=== PATIENT | female | born 1965 | race Caucasian/White ===

== ENCOUNTER → 2022-10-23 14:10 | Outpatient (BNVA) | payer OTHER, MEDICARE, SELFPAY | PROVIDERS: PCP Internal Medicine Hematology & Oncology; Visit Provider Physician Assistant | DX: Z13.89 Encounter for screening for other disorder (principal) ==

== ENCOUNTER → 2022-11-11 12:48 | Outpatient (BNVA) | payer OTHER, MEDICARE, SELFPAY | PROVIDERS: PCP Internal Medicine Hematology & Oncology; Visit Provider Physician Assistant | DX: M54.12 Radiculopathy, cervical region (principal) | CPT/HCPCS: 99024 ==

== ENCOUNTER → 2022-12-26 08:55 | Outpatient (BNVA) | payer OTHER, MEDICARE, SELFPAY | PROVIDERS: PCP Internal Medicine Hematology & Oncology; Visit Provider Physician Assistant ==

== ENCOUNTER 2023-01-27 12:08 | Emergency (ER) | payer OTHER, MEDICARE, SELFPAY ==
--- NOTE | 2023-01-27 12:12 | ED_ITS ---
HPI - General Adult General Chief complaint: General Medical Stated complaint: Diff Walking ? Clots Time Seen by Provider: 01/27/23 14:26 Source: patient Mode of arrival: ambulatory Limitations: no limitations History of Present Illness HPI narrative: The 49-year-old female with chronic pain throughout her body intermittent weakness cervical without without with a with neck surgery back in August an MRI at that time as well as well as a fusion of her lower spine scheduled later this month. She states she woke up this morning stating she felt like her inflammation starting control she was recently diagnosed fibromyalgia. She states she has to take NSAIDs was taking high doses and start affect her kidneys . Related Data Previous Rx's Medication Instructions Recorded oxycodone 5 mg tablet 5 mg PO Q4-6H PRN pain #30 tabs 10/23/22 sulfamethoxazole 800 1 tab PO BID 7 days #14 tabs 10/23/22 mg-trimethoprim 160 mg tablet (Bactrim DS) tizanidine 4 mg tablet 4 mg PO Q8H PRN muscle spasticity 10/23/22 #30 tabs hydrocodone 5 mg-acetaminophen 300 1 tab PO Q6H PRN pain #30 tabs 10/30/22 mg tablet tizanidine 4 mg tablet 4 mg PO Q8H PRN muscle spasticity 10/31/22 #30 tabs pregabalin 75 mg capsule (Lyrica) 75 mg PO BID #60 caps 11/11/22 indomethacin 25 mg capsule 25 mg PO BID #30 caps 01/27/23 Allergies Allergy/AdvReac Type Severity Reaction Status Date / Time cortisone Allergy Swelling Verified 01/27/23 12:15 ondansetron [From Zofran] Allergy Hypotension Verified 01/27/23 12:15 prednisone Allergy Anaphylaxis Verified 01/27/23 12:15 NSAIDS (Non-Steroidal AdvReac Unknown Verified 01/27/23 14:12 Anti-Inflamma Review of Systems Review of Systems: Review of systems: General: Patient denies any fever chills recent illness or falls Musculoskeletal: Denies back pain or body aches or other injuries HEENT: denies headache, runny nose, ear pain Respiratory: denies shortness of breath, cough Cardiovascular: no chest pain or palpitations : denies dysuria, frequency Abdomen: no nausea vomiting denies abdominal pain Extremities: no swelling, no pain Skin: no diaphoresis Yes all other systems are reviewed and are negative [facility] Social History Social History Alcohol intake: never Smoked in Last 30 Days: No Use of substances other than those prescribed or required for medical reasons: No Advance Directives: No Physical Exam ED Vital Signs: Vital Signs - 24 hr 01/27/23 12:15 01/27/23 14:47 Temperature 97 F 98.4 F Pulse Rate 93 92 Respiratory Rate 16 16 Blood Pressure 135/63 153/74 H Pulse Oximetry 97 98 Oxygen Delivery Method Room Air Room Air BMI result Body Mass Index 30.0 Neurological exam: CN II- XII tested. Patient is alert and oriented to person place and time. Patient has no dysphagia or dysarthia, denies good vision in all four vision lackey no nystagmus on exam, good strength to upper and lower extremities with normal reflexes to brachioradialis, wrist, patella and achilles. Negative romberg, good finger to nose and heel to ordoñez. General: Well-appearing well-nourished in no signs of distress HEENT: Normocephalic atraumatic Neck: No signs of JVD, no masses no tenderness or lymphadenopathy Cardiovascular: Regular rate and rhythm Respiratory: Clear to auscultation bilaterally Abdomen: Soft nontender no masses Extremities: Normal pedal pulses no signs of edema Skin: Dry warm no rashes Back: No tenderness full ROM Course Course Course Narrative: This is an RME: Additional HPI, ROS, PE not included below will be deferred to primary provider. Patient is a 57 yo F with PMH of athritis and cervical radiculopathy presenting with difficulty walking. Patient ambulating into triage. Patient reports that since September she has had whole body stiffness and it is worsening in her legs. Patient reports being swollen and in pain from head to toe. Patient reports pain with bending her knees. Patient denies fever, chills, chest pain, SOB, nausea, vomiting, numbness, tingling, headache, vision changes. Plan: labs Medical Decision Making Medical Decision Making MDM Narrative: Patient has no back pain red flags no numbness she does not lose control of her bowel or bladder I do not think there is anything that is life threatening she is not going to be on prednisone or NSAIDs I did talk to her that I think it is reasonable to try some NSAIDs for short period time they were very happy with this plan. She is already on Percocet I would not give her a 2nd opiate for this acute on chronic pain. Differential Diagnosis Differential Diagnoses: The differential diagnosis associated with the presentation includes Acute on chronic arthritis labs sent triage that show inflammation that is nonspecific she has no back pain red flags Admission/Observation Consideration of admission/observation: Escalation of care including admission/observation considered Lab Data MDM Lab Attestation statement: I reviewed the patient's lab results. Nonspecific inflammation in ESR and CRP kidney function now normal. 01/27/23 12:30 01/27/23 12:30 Labs: Lab Results 01/27/23 01/27/23 01/27/23 Range/Units 12:30 12:30 12:30 WBC 8.6 (4.8-10.8) X10*3/uL RBC 4.54 (4.20-5.50) X10*6/uL Hgb 10.9 L (12.0-16.0) g/dl Hct 35.5 L (37.0-47.0) % MCV 78.2 L (80.0-98.0) fL MCH 24.0 L (27.0-33.0) pg MCHC 30.7 L (31.0-35.0) g/dl RDW 15.6 (11.0-16.0) % Plt Count 433 H (160-400) X10*3/uL MPV 10.0 (9.4-12.3) fL Immature Gran % (Auto) 0.7 H (0.0-0.4) % Neut % (Auto) 72.7 (45-73) % Lymph % (Auto) 18.7 L (20-40) % Fountain % (Auto) 4.9 (2-11) % Eos % (Auto) 2.3 (0-4) % Baso % (Auto) 0.7 (0-2) % Lymph # (Auto) 1.6 (1.2-4.9) X10*3/uL Fountain # (Auto) 0.4 (0.1-1.2) X10*3/uL Eos # (Auto) 0.2 (0.0-0.4) X10*3/uL Baso # (Auto) 0.1 (0.0-0.2) X10*3/uL Abs Immat Gran (auto) 0.06 H (0.00-0.03) X10*3/uL Absolute Neuts (auto) 6.2 (2.0-8.3) x10*3/uL Absolute Nucleated RBC 0.000 (0.0-0.012) X10*3/uL Nucleated RBC % (auto) 0.0 (0.0-0.2) /100WBC ESR 60 H (0-20) MM/HR Sodium 135 (135-145) mmol/L Potassium 4.0 (3.3-5.1) mmol/L Chloride 100 (96-108) mmol/L Carbon Dioxide 21 L (22-29) mmol/L Anion Gap 18 (12-20) BUN 13 (9-16) mg/dL Creatinine 0.80 (0.5-1.4) mg/dL Estim Creat Clear Calc 72.3 Estimated GFR > 60 Random Glucose 107 (60-115) mg/dL Calcium 10.3 H (8.4-10.2) mg/dL Magnesium 1.6 (1.6-2.6) mg/dL Total Bilirubin 0.2 (0.0-1.0) mg/dL AST 11 (5-31) U/L ALT < 5 (0-31) U/L Alkaline Phosphatase 78 (39-117) U/L C-Reactive Protein 7.92 H (< or = 0.50) mg/dL Total Protein 8.7 H (6.5-8.0) g/dL Albumin 4.3 (3.5-5.0) g/dL Discharge Plan Discharge Clinical Impression: Arthritis Patient Disposition: Home, Self-Care Instructions: Osteoarthritis (ED) Additional Instructions: You were seen today for joint pain. You had labs done that showed inflammation and improved kidney function. Please call to follow up. If you have any other concerns please return to the ED. Prescriptions: New indomethacin 25 mg capsule 25 mg PO BID Qty: 30 0RF Rx Instructions: administer with food or milk No Action hydrocodone-acetaminophen 5-300 mg tablet 1 tab PO Q6H PRN (Reason: pain) Qty: 30 0RF Rx Instructions: Partial Fill upon patient request. tizanidine 4 mg tablet 4 mg PO Q8H PRN (Reason: muscle spasticity) Qty: 30 0RF pregabalin [Lyrica] 75 mg capsule 75 mg PO BID Qty: 60 2RF sulfamethoxazole-trimethoprim [Bactrim DS] 800-160 mg tablet 1 tab PO BID 7 Days Qty: 14 0RF oxycodone 5 mg tablet 5 mg PO Q4-6H PRN (Reason: pain) Qty: 30 0RF Rx Instructions: Partial Fill upon patient request. tizanidine 4 mg tablet 4 mg PO Q8H PRN (Reason: muscle spasticity) Qty: 30 0RF
[2023-01-27 12:15] VITALS: BP 135/63; PULSE 93; RESP 16; TEMP 36.1; O2SAT 97
[2023-01-27 12:37] LABS: MANUAL DIFF FLAG NO
[2023-01-27 12:38] LABS: Basophils Absolute Auto 0.1 X10*3/uL (0.0-0.2); Basophils Percent Auto 0.7 % (0-2); Eosinophils Absolute Auto 0.2 X10*3/uL (0.0-0.4); Eosinophils Percent Auto 2.3 % (0-4); Hematocrit 35.5 % (37.0-47.0); Hemoglobin 10.9 g/dl (12.0-16.0); Imm Gran Abs Auto 0.06 X10*3/uL (0.00-0.03); Imm Gran Pct Auto 0.7 % (0.0-0.4); Lymphocytes Absolute Auto 1.6 X10*3/uL (1.2-4.9); Lymphocytes Percent Auto 18.7 % (20-40); Mean Corpuscular HGB Conc 30.7 g/dl (31.0-35.0); Mean Corpuscular Volume 78.2 fL (80.0-98.0); Monocytes Absolute Auto 0.4 X10*3/uL (0.1-1.2); Monocytes Percent Auto 4.9 % (2-11); Neutrophils Absolute Auto 6.2 x10*3/uL (2.0-8.3); Neutrophils Percent Auto 72.7 % (45-73); Platelet Count 433 X10*3/uL (160-400); Red Blood Count 4.54 X10*6/uL (4.20-5.50); Red Cell Distribution Width 15.6 % (11.0-16.0); White Blood Count 8.6 X10*3/uL (4.8-10.8)
[2023-01-27 12:53] LABS: Alanine Aminotransferase < 5 U/L (0-31); Albumin Level 4.3 g/dL (3.5-5.0); Alkaline Phosphatase 78 U/L (39-117); Anion Gap 18 (12-20); Aspartate Amino Transferase 11 U/L (5-31); Bilirubin Total 0.2 mg/dL (0.0-1.0); Blood Urea Nitrogen 13 mg/dL (9-16); C Reactive Protein 7.92 mg/dL (< or = 0.50); Calcium 10.3 mg/dL (8.4-10.2); Carbon Dioxide 21 mmol/L (22-29); Chloride 100 mmol/L (96-108); Creatinine Clr Calc Pharmacy 72.3; Estimated Glomerular Filt Rate > 60; Glucose Random 107 mg/dL (60-115); Magnesium 1.6 mg/dL (1.6-2.6); Sodium 135 mmol/L (135-145); Total Protein 8.7 g/dL (6.5-8.0)
[2023-01-27 13:46] LABS: Erythrocyte Sedimentation Rate 60 MM/HR (0-20)
[2023-01-27 14:47] VITALS: BP 153/74; PULSE 92; RESP 16; TEMP 36.9; O2SAT 98
--- NOTE | 2023-01-27 15:01 | PC.NURSE ---
pt axox4, respirations even and unlabored, VSS, PERRLA, weakness noted with bilateral extremities upon exam. skin wpd. pt c/o stiffening of bilateral lower extremities; felt worse today. +pedal pulses bilat. awainting eval.
[2023-01-27] MEDS: Ketorolac Tromethamine 30 MG/ML VIAL 15 MG IM (15:27)
== END 2023-01-27 15:33 | disposition home or self-care (01) ==
PROVIDERS: Physician Assistant; Emergency Provider Student in an Organized Health Care Education/Training Program; PCP Internal Medicine
DX: M15.9 Polyosteoarthritis, unspecified (principal); R53.1 Weakness; E11.9 Type 2 diabetes mellitus without complications; I10 Essential (primary) hypertension; M79.7 Fibromyalgia; Z79.899 Other long term (current) drug therapy; Z87.891 Personal history of nicotine dependence
CPT/HCPCS: 36415; 80053; 83735; 85025; 85652; 86140; 96372; 99284; J1885

== ENCOUNTER 2023-02-06 14:24 | Emergency (ER) | payer OTHER, MEDICARE, SELFPAY ==
[2023-02-06 14:51] VITALS: BP 170/75; PULSE 108; RESP 20; TEMP 36.4; O2SAT 94; BMI 31.8
--- NOTE | 2023-02-06 14:52 | ED_ITS ---
HPI - General Adult General Chief complaint: Extremity Problem Stated complaint: both legs swollen Time Seen by Provider: 02/06/23 18:27 Source: patient Mode of arrival: ambulatory Limitations: no limitations History of Present Illness HPI narrative: Patient comes to the emergency room complaining of bilateral lower extremity edema for 3 days. Patient denies chest pain or shortness of breath. Patient recently started taking indomethacin for chronic pain. Related Data Home Medications Medication Instructions Recorded Confirmed dicyclomine 10 mg capsule 10 mg PO TID 01/30/23 01/30/23 gemfibrozil 600 mg tablet 600 mg PO BID 01/30/23 01/30/23 hydrochlorothiazide 25 mg tablet 25 mg PO DAILY 01/30/23 01/30/23 levothyroxine 125 mcg tablet 125 mcg PO DAILY 01/30/23 01/30/23 (Levoxyl) metformin 500 mg tablet 1,000 mg PO BID 01/30/23 02/02/23 omeprazole 40 mg capsule,delayed 40 mg PO DAILY 01/30/23 01/30/23 release oxycodone-acetaminophen 5 mg-325 1 tab PO QID PRN Pain 01/30/23 01/30/23 mg tablet ramipril 5 mg capsule 5 mg PO TID 01/30/23 01/30/23 sertraline 100 mg tablet 100 mg PO BEDTIME 01/30/23 02/02/23 valacyclovir 1 gram tablet 1,000 mg PO TID 01/30/23 01/30/23 verapamil 300 mg capsule 24hr 300 mg PO BEDTIME 01/30/23 02/02/[address],ext[address]release lorazepam 1 mg tablet 1 mg PO BEDTIME 02/02/23 02/02/23 pregabalin 75 mg capsule 150 mg PO BEDTIME 02/02/23 02/02/23 pregabalin 75 mg capsule (Lyrica) 75 mg PO QAM 02/02/23 02/02/23 tizanidine 4 mg tablet 4 mg PO BID 02/02/23 02/02/23 Previous Rx's Medication Instructions Recorded indomethacin 25 mg capsule 25 mg PO BID #30 caps 01/27/23 furosemide 40 mg tablet (Lasix) 40 mg PO DAILY #3 tabs 02/06/23 Allergies Allergy/AdvReac Type Severity Reaction Status Date / Time prednisone Allergy Severe Anaphylaxis Verified 02/06/23 15:57 cortisone Allergy Intermediate Swelling Verified 02/06/23 15:57 ondansetron [From Zofran] Allergy Mild Hypotension Verified 02/06/23 15:57 NSAIDS (Non-Steroidal AdvReac Intermediate affected Verified 02/06/23 15:57 Anti-Inflamma renal function Review of Systems Review of Systems: Constitutional : No Weight loss, No Fever, No Chills, No Night Sweats, No Fatigue, No Malaise ENT/Mouth : No Hearing loss, No Ear Pain, No Nasal Congestion, No Sinus Pain, No Hoarseness, No sore throat, No Rhinorrhea, No Swallowing Difficulty Eyes: No Eye Pain, No Swelling, No Redness, No Foreign Body, No Discharge, No Vision Changes Cardiovascular : No Chest Pain, No SOB, No Dyspnea on Exertion, No Orthopnea, no palpitations, complaining of bilateral lower extremity edema Respiratory : No Cough, No Sputum, No Wheezing, No Smoke Exposure, No Dyspnea Gastrointestinal : No Nausea, No Vomiting, No Diarrhea, No Constipation, No abdominal Pain, No Hematochezia, No Melena Genitourinary : no irregular bleeding, No Dysuria, No Urinary Frequency, No Hematuria, No Urinary Incontinence, No Urgency, No Flank Pain, No Urinary Flow Changes, No Hesitancy Musculoskeletal : No joint pain, No Myalgias, No Joint Swelling Skin : No Skin Lesions, No rash Neuro : No Weakness, No Numbness, No Paresthesias, No Loss of Consciousness, No Dizziness, No Headache Psych : No Anxiety/Panic, No Depression, No SI/HI/AH/VH, No Social Issues, Heme/Lymph: No Bruising, No Bleeding,No Lymphadenopathy Endocrine : No Polyuria, No Polydipsia, No Temperature Intolerance [facility] Past Medical History Medical History Anxiety Arthritis Cervical radiculopathy Depression Diabetes Elevated cholesterol Fibromyalgia GERD (gastroesophageal reflux disease) HTN (hypertension) Hypothyroid Surgical History (Updated 01/30/23 @ 11:02 by Radha Riojas RN) History of back surgery History of bilateral carpal tunnel release Hx of abdominal hysterectomy Hx of knee surgery Hx of neck surgery Hx of neck surgery Hx of tonsillectomy Social History Social History Are you a primary customer care coordinator to a significant other at home: No Do you presently have visiting nurse or other home services: No Alcohol intake: never Patient Tobacco Use Status: Former Tobacco user Quit Date: 2018 Tobacco use type: Cigarette Advance Directives: No Advance Directives Information Provided: No Physical Exam ED Vital Signs: Vital Signs - 24 hr 02/06/23 14:51 02/06/23 15:54 Temperature 97.5 F 98.4 F Pulse Rate 108 H 97 Respiratory Rate 20 16 Blood Pressure 170/75 H 170/85 H Pulse Oximetry 94 94 Oxygen Delivery Method Room Air Room Air BMI result Body Mass Index 31.8 Const Other: Appearance: Alert. Oriented X3. No acute distress. Eyes: Pupils equal, round and reactive to light. ENT: Pharynx normal. Neck: Normal inspection. Neck supple. No lymph nodes noted. No crepitus CVS: Normal heart rate and rhythm. Pulses normal. Normal S1 and S2 Respiratory: No respiratory distress. Breath sounds normal. No Wheezing. No rales Abdomen: Soft and nontender. No rigidity. No distention. Skin: Skin warm and dry. Normal skin color. Normal skin turgor. Extremities: +1 pitting edema bilaterally no calf pain No Lacerations. No Rash Neuro: Oriented X 3. No motor deficit. No sensory deficit. Moving all extremities. No slurred speech. CN 2 through 12 grossly intact Psych: calm, cooperative, normal affect Course Course Course Narrative: RME performed by Mariola Montesinos PA-C. Patient is a 57 year old assigned female at presenting to the emergency department with bilateral lower leg swelling. Patient states that her kidneys do not tolerate NSAIDs well and the last time she was here she was prescribed an NSAID, now she is concerned about her swelling. Labs ordered. Patient placed back in the waiting room pending room availability and results. Medical Decision Making Medical Decision Making [facility] Narrative: -my interpretation of labs: White blood cell count within normal limits, chronic anemia, BNP 41. I discussed the physical exam with the patient, patient likely having venous insufficiency versus side effect from indomethacin. -patient will be given Lasix for 3 days, instructed to wrap her legs or use compression stockings and elevate her legs as long as possible -DVT not suspected. Patient has DVT wells criteria score is -2 Differential Diagnosis Differential Diagnoses: The differential diagnosis associated with the presentation includes (Lower extremity edema from CHF, indomethacin side effects, venous insufficiency) Lab Data [facility] Lab Attestation statement: I reviewed the patient's lab results. 02/06/23 16:06 02/06/23 16:06 Labs: Lab Results 02/06/23 02/06/23 02/06/23 Range/Units 16:06 16:06 16:06 WBC 7.4 (4.8-10.8) X10*3/uL RBC 3.98 L (4.20-5.50) X10*6/uL Hgb 9.4 L (12.0-16.0) g/dl Hct 31.5 L (37.0-47.0) % MCV 79.1 L (80.0-98.0) fL MCH 23.6 L (27.0-33.0) pg MCHC 29.8 L (31.0-35.0) g/dl RDW 15.9 (11.0-16.0) % Plt Count 399 (160-400) X10*3/uL MPV 9.7 (9.4-12.3) fL Immature Gran % (Auto) 1.2 H (0.0-0.4) % Neut % (Auto) 69.2 (45-73) % Lymph % (Auto) 21.1 (20-40) % Phillips % (Auto) 5.0 (2-11) % Eos % (Auto) 3.0 (0-4) % Baso % (Auto) 0.5 (0-2) % Lymph # (Auto) 1.6 (1.2-4.9) X10*3/uL Phillips # (Auto) 0.4 (0.1-1.2) X10*3/uL Eos # (Auto) 0.2 (0.0-0.4) X10*3/uL Baso # (Auto) 0.0 (0.0-0.2) X10*3/uL Abs Immat Gran (auto) 0.09 H (0.00-0.03) X10*3/uL Absolute Neuts (auto) 5.1 (2.0-8.3) x10*3/uL Absolute Nucleated RBC 0.000 (0.0-0.012) X10*3/uL Nucleated RBC % (auto) 0.0 (0.0-0.2) /100WBC Sodium 137 (135-145) mmol/L Potassium 4.8 (3.3-5.1) mmol/L Chloride 104 (96-108) mmol/L Carbon Dioxide 23 (22-29) mmol/L Anion Gap 15 (12-20) BUN 22 H (9-16) mg/dL Creatinine 1.01 (0.5-1.4) mg/dL Estim Creat Clear Calc 59.0 Estimated GFR 56 Random Glucose 193 H (60-115) mg/dL Calcium 9.8 (8.4-10.2) mg/dL Magnesium 1.9 (1.6-2.6) mg/dL Total Bilirubin 0.1 (0.0-1.0) mg/dL AST 12 (5-31) U/L ALT 8 (0-31) U/L Alkaline Phosphatase 71 (39-117) U/L B-Natriuretic Peptide 41 (<100) pg/mL Total Protein 8.1 H (6.5-8.0) g/dL Albumin 4.0 (3.5-5.0) g/dL Scores [place] DVT Alternative Dx as likely as or more likely than DVT: -2 Score: -2 2-tier Risk: unlikely risk (5%) 3-tier Risk: low risk (3%) Discharge Plan Discharge Clinical Impression: Bilateral lower extremity edema Patient Disposition: Home, Self-Care Instructions: Leg Edema (ED) Additional Instructions: Please follow-up with your primary care physician tomorrow. If you have any worsening or new symptoms, please return to the emergency room or call 911 Prescriptions: New furosemide [Lasix] 40 mg tablet 40 mg PO DAILY Qty: 3 0RF No Action metformin 500 mg tablet 1,000 mg PO BID valacyclovir 1 gram tablet 1,000 mg PO TID sertraline 100 mg tablet 100 mg PO BEDTIME omeprazole 40 mg capsule,delayed release(DR/EC) 40 mg PO DAILY gemfibrozil 600 mg tablet 600 mg PO BID levothyroxine [Levoxyl] 125 mcg tablet 125 mcg PO DAILY verapamil 300 mg capsule, [address] 300 mg PO BEDTIME hydrochlorothiazide 25 mg tablet 25 mg PO DAILY ramipril 5 mg capsule 5 mg PO TID oxycodone-acetaminophen 5-325 mg tablet 1 tab PO QID PRN (Reason: Pain) dicyclomine 10 mg capsule 10 mg PO TID pregabalin 75 mg Capsule 150 mg PO BEDTIME tizanidine 4 mg tablet 4 mg PO BID pregabalin [Lyrica] 75 mg capsule 75 mg PO QAM lorazepam 1 mg tablet 1 mg PO BEDTIME indomethacin 25 mg capsule 25 mg PO BID Qty: 30 0RF Rx Instructions: administer with food or milk
[2023-02-06 15:54] VITALS: BP 170/85; PULSE 97; RESP 16; TEMP 36.9; O2SAT 94
--- NOTE | 2023-02-06 15:55 | PC.NURSE ---
patient a&ox3, c/o 03/29 generalized pain but states her legs hurt more than the body pain, pt noted to have 2+edema to BLE, pt awaiting tech to draw labs, and a provider to evaluate, call kaba within reach, will continue to monitor.
[2023-02-06 16:15] LABS: MANUAL DIFF FLAG NO
[2023-02-06 16:17] LABS: Basophils Percent Auto 0.5 % (0-2); Eosinophils Absolute Auto 0.2 X10*3/uL (0.0-0.4); Hematocrit 31.5 % (37.0-47.0); Hemoglobin 9.4 g/dl (12.0-16.0); Imm Gran Abs Auto 0.09 X10*3/uL (0.00-0.03); Imm Gran Pct Auto 1.2 % (0.0-0.4); Lymphocytes Absolute Auto 1.6 X10*3/uL (1.2-4.9); Lymphocytes Percent Auto 21.1 % (20-40); Mean Corpuscular HGB Conc 29.8 g/dl (31.0-35.0); Mean Corpuscular Hemoglobin 23.6 pg (27.0-33.0); Mean Corpuscular Volume 79.1 fL (80.0-98.0); Mean Platelet Volume 9.7 fL (9.4-12.3); Monocytes Absolute Auto 0.4 X10*3/uL (0.1-1.2); Neutrophils Absolute Auto 5.1 x10*3/uL (2.0-8.3); Neutrophils Percent Auto 69.2 % (45-73); Platelet Count 399 X10*3/uL (160-400); Red Blood Count 3.98 X10*6/uL (4.20-5.50); Red Cell Distribution Width 15.9 % (11.0-16.0); White Blood Count 7.4 X10*3/uL (4.8-10.8)
[2023-02-06 16:37] LABS: Alanine Aminotransferase 8 U/L (0-31); Alkaline Phosphatase 71 U/L (39-117); Anion Gap 15 (12-20); Aspartate Amino Transferase 12 U/L (5-31); Bilirubin Total 0.1 mg/dL (0.0-1.0); Blood Urea Nitrogen 22 mg/dL (9-16); Calcium 9.8 mg/dL (8.4-10.2); Carbon Dioxide 23 mmol/L (22-29); Chloride 104 mmol/L (96-108); Estimated Glomerular Filt Rate 56; Glucose Random 193 mg/dL (60-115); Magnesium 1.9 mg/dL (1.6-2.6); Potassium 4.8 mmol/L (3.3-5.1); Sodium 137 mmol/L (135-145); Total Protein 8.1 g/dL (6.5-8.0)
[2023-02-06 16:41] LABS: B Type Natriuretic Peptide 41 pg/mL (<100)
[2023-02-06 19:17] VITALS: BP 166/86; PULSE 98; RESP 18; TEMP 36.7; O2SAT 96
--- NOTE | 2023-02-06 19:18 | PC.NURSE ---
pts bilateral legs wrapped with janine wraps per request of provider, pt also educated about obtaining compression socks that are available OTC, pt to obtain compression socks vs using janine wraps. pt also educated on lasix and will be discharged.
== END 2023-02-06 19:19 | disposition home or self-care (01) ==
PROVIDERS: Physician Assistant Medical; Emergency Provider Emergency Medicine
DX: R60.0 Localized edema (principal); E11.9 Type 2 diabetes mellitus without complications; I10 Essential (primary) hypertension; E78.5 Hyperlipidemia, unspecified; G89.4 Chronic pain syndrome; Z79.899 Other long term (current) drug therapy; Z79.84 Long term (current) use of oral hypoglycemic drugs
CPT/HCPCS: 36415; 80053; 83735; 83880; 85025; 99283

== ENCOUNTER 2023-02-16 05:53 | Inpatient (IN) | payer OTHER, MEDICARE, SELFPAY ==
[2023-02-02 10:33] VITALS: BMI 29.8
--- NOTE | 2023-02-13 09:07 | P.CONAN_ITS ---
Documented by User: Courtney Wagner NP 02/13/23 09:10 HPI - Anesthesia Eval Consult details Narrative: 57yo F for Right L5-S1 Transkambin Lumbar Interbody Fusion Medically optimized Since phone PAT, pt to [facility] with bilat LE edema r/t lyrica. Lyrica d/c'd and 3 days of lasix. No further edema. No SOB. PMFSH Active Problems Active Problems: All Active Problems (Updated 02/07/23 @ 00:05 by Nomi Arora) Cervical radiculopathy (Acute) Arthritis (Acute) Past Medical History Medical History Anxiety Arthritis Cervical radiculopathy Depression Diabetes Elevated cholesterol Fibromyalgia GERD (gastroesophageal reflux disease) HTN (hypertension) Hypothyroid Surgical History Surgical History (Updated 01/30/23 @ 11:02 by Radha Riojas RN) History of back surgery History of bilateral carpal tunnel release Hx of abdominal hysterectomy Hx of knee surgery Hx of neck surgery Hx of neck surgery Hx of tonsillectomy Social History Social History Are you a primary hemodialysis patient care specialist to a significant other at home: No Do you presently have visiting nurse or other home services: No Alcohol intake: never Patient Tobacco Use Status: Former Tobacco user Quit Date: 2018 Tobacco use type: Cigarette Use of substances other than those prescribed or required for medical reasons: No Have you been hit, kicked, punched, or otherwise hurt by someone within the past year? If so, by whom?: No Are you DNR?: No Advance Directives: No (states is primary contact) Advance Directives Information Provided: Yes (brochure mailed) Advance Directives on File: No Recently lost weight without trying: No Eating poorly because of decreased appetite: No Nutrition Risks: No Nutritional Risk Poor oral hygiene: No (upper partial) Meds Allergies Allergy/AdvReac Type Severity Reaction Status Date / Time gabapentin Allergy Severe Anaphylaxis Verified 02/16/23 06:34 prednisone Allergy Severe Anaphylaxis Verified 02/06/23 15:57 cortisone Allergy Intermediate Swelling Verified 02/06/23 15:57 ondansetron [From Zofran] Allergy Mild Hypotension Verified 02/06/23 15:57 NSAIDS (Non-Steroidal AdvReac Intermediate affected Verified 02/06/23 15:57 Anti-Inflamma renal function Home Medications Medication Instructions Recorded Confirmed Last Taken Type dicyclomine 10 mg capsule 10 mg PO TID 01/30/23 01/30/23 02/13/23 History gemfibrozil 600 mg tablet 600 mg PO BID 01/30/23 01/30/23 02/15/23 History hydrochlorothiazide 25 mg tablet 25 mg PO DAILY 01/30/23 01/30/23 02/15/23 History levothyroxine 125 mcg tablet 125 mcg PO DAILY 01/30/23 01/30/23 02/16/23 02:00 History (Levoxyl) metformin 500 mg tablet 1,000 mg PO BID 01/30/23 02/02/23 02/15/23 History omeprazole 40 mg capsule,delayed 40 mg PO DAILY 01/30/23 01/30/23 02/16/23 02:00 History release oxycodone-acetaminophen 5 mg-325 1 tab PO QID PRN Pain 01/30/23 01/30/23 02/16/23 02:00 History mg tablet ramipril 5 mg capsule 5 mg PO TID 01/30/23 01/30/23 02/15/23 History sertraline 100 mg tablet 100 mg PO BEDTIME 01/30/23 02/02/23 02/15/23 History valacyclovir 1 gram tablet 1,000 mg PO TID 01/30/23 01/30/23 02/15/23 History verapamil 300 mg capsule 24hr 300 mg PO BEDTIME 01/30/23 02/02/23 02/15/[address],ext.release lorazepam 1 mg tablet 1 mg PO BEDTIME 02/02/23 02/02/23 02/15/23 History tizanidine 4 mg tablet 4 mg PO BID 02/02/23 02/02/23 02/15/23 History Exam Exam Date and Time: February 13, 2023 0907 Height,Weight and Vital Signs: Height 5 ft 2 in Weight 73.936 kg Pertinent Lab Results Pertinent Lab Results: Laboratory Tests 02/06/23 02/06/23 16:06 16:06 WBC 7.4 Hgb 9.4 L Hct 31.5 L Plt Count 399 Sodium 137 Potassium 4.8 Chloride 104 Carbon Dioxide 23 BUN 22 H Creatinine 1.01 Narrative Narrative: EKG 01/2023 SR @ 83 Borderline low volt Assessment and Plan Assessment Anesthesia Assessment: Chart Reviewed Documented by User: Donald Fink MD 02/16/23 07:19 PMFSH Past Medical History Medical History Anxiety Arthritis Cervical radiculopathy Depression Diabetes Elevated cholesterol Fibromyalgia GERD (gastroesophageal reflux disease) HTN (hypertension) Hypothyroid Family History Family history of problems with anesthesia: No Surgical History Surgical History (Updated 01/30/23 @ 11:02 by Radha Riojas RN) History of back surgery History of bilateral carpal tunnel release Hx of abdominal hysterectomy Hx of knee surgery Hx of neck surgery Hx of neck surgery Hx of tonsillectomy History of Problems with Anesthesia: No Social History Social History Are you a primary hemodialysis patient care specialist to a significant other at home: No Do you presently have visiting nurse or other home services: No Alcohol intake: never Patient Tobacco Use Status: Former Tobacco user Quit Date: 2018 Tobacco use type: Cigarette Use of substances other than those prescribed or required for medical reasons: No Have you been hit, kicked, punched, or otherwise hurt by someone within the past year? If so, by whom?: No Are you DNR?: No Advance Directives: No (states is primary contact) Advance Directives Information Provided: Yes (brochure mailed) Advance Directives on File: No Recently lost weight without trying: No Eating poorly because of decreased appetite: No Nutrition Risks: No Nutritional Risk Poor oral hygiene: No (upper partial) Meds Allergies Allergy/AdvReac Type Severity Reaction Status Date / Time gabapentin Allergy Severe Anaphylaxis Verified 02/16/23 06:34 prednisone Allergy Severe Anaphylaxis Verified 02/06/23 15:57 cortisone Allergy Intermediate Swelling Verified 02/06/23 15:57 ondansetron [From Zofran] Allergy Mild Hypotension Verified 02/06/23 15:57 NSAIDS (Non-Steroidal AdvReac Intermediate affected Verified 02/06/23 15:57 Anti-Inflamma renal function Home Medications Medication Instructions Recorded Confirmed Last Taken Type dicyclomine 10 mg capsule 10 mg PO TID 01/30/23 01/30/23 02/13/23 History gemfibrozil 600 mg tablet 600 mg PO BID 01/30/23 01/30/23 02/15/23 History hydrochlorothiazide 25 mg tablet 25 mg PO DAILY 01/30/23 01/30/23 02/15/23 History levothyroxine 125 mcg tablet 125 mcg PO DAILY 01/30/23 01/30/23 02/16/23 02:00 History (Levoxyl) metformin 500 mg tablet 1,000 mg PO BID 01/30/23 02/02/23 02/15/23 History omeprazole 40 mg capsule,delayed 40 mg PO DAILY 01/30/23 01/30/23 02/16/23 02:00 History release oxycodone-acetaminophen 5 mg-325 1 tab PO QID PRN Pain 01/30/23 01/30/23 02/16/23 02:00 History mg tablet ramipril 5 mg capsule 5 mg PO TID 01/30/23 01/30/23 02/15/23 History sertraline 100 mg tablet 100 mg PO BEDTIME 01/30/23 02/02/23 02/15/23 History valacyclovir 1 gram tablet 1,000 mg PO TID 01/30/23 01/30/23 02/15/23 History verapamil 300 mg capsule 24hr 300 mg PO BEDTIME 01/30/23 02/02/23 02/15/[address],ext.release lorazepam 1 mg tablet 1 mg PO BEDTIME 02/02/23 02/02/23 02/15/23 History tizanidine 4 mg tablet 4 mg PO BID 02/02/23 02/02/23 02/15/23 History Exam Airway Mallampati Class: II TM Dist: >3cm Neck ROM: Limited Heart: rrr Lungs: cta Assessment and Plan Assessment Anesthesia Assessment: Anesthesia Plan Discussed Final Anesthetic Review Family History of Problems with Anesthesia: No History of Problems with Anesthesia: No NPO: Yes ASA Class: II Final Preanesthetic Review: No Changes in Pt Med Stat, Meds/Allgs Chart Reviewed, Consent Obtained/Reviewed and Anes Risks/Benef Reviewed Patient Risk: Intermediate Procedure Risk: Intermediate Anesthetic Plan Anesthetic Plan: GA and Agree w/ Assess. and Plan Disposition: Standard PACU
[2023-02-16] VITALS (22 sets, daily range): BP systolic 143–176; BP diastolic 68–86; PULSE 73–116; RESP 12–20; TEMP 36.1–36.8; O2SAT 92–100
--- NOTE | ~2023-02-16 | FL_ITS ---
EXAMINATION: XR FLUOROSCOPY WITH IMAGES CLINICAL INFORMATION: Low back pain. For fusion. COMPARISON: None available. TECHNIQUE: Fluoroscopy Supervised By Dr. Samaniego Fluoroscopy Time: 1.5 minutes. Cumulative Dose: 131 mGy. DAP: 20 Gycm2. Images: 2. FINDINGS: There are 2 digital images obtained with disc prostheses at the L5-S1 disc level and bilateral L5 and S1 pedicle screws with interconnecting carmen for posterior fusion and stability. Visualized rest rest of the vertebral heights and disc heights are maintained. No acute fracture or lytic process seen. FL/FL guidance in OR IMPRESSION: Fluoroscopy images L5/S1 disc prosthesis for disc fusion and posterior hardware for stabilization as described above.
--- OUTSIDE RECORDS SUMMARY | 2023-02-16 05:55 | XMS_ITS | Patient Health Record ---
Author Name Unknown Organization [facility] t[facility] Address [address] [place] [address] Care Team Providers Care Urologic Nurse Name Role Phone SHAWN FIELD, FILI Primary Care Provider MIKE Boyd Unavailable [phone] ALLERGIES Allergen (clinical drug ingredient) Drug/Non Drug Allergy documented on EMR Reaction Allergy Type Onset Date Status moxifloxacin Avelox Unknown Drug Allergy Acti ve clarithromycin Biaxin Unknown Drug Allergy Ac tive duloxetine Cymbalta Unknown Drug Allergy Active fluconazole Diflucan Unknown Drug Allergy Activ e gabapentin Gabapentin Unknown Drug Allergy Activ e atorvastatin Lipitor Unknown Drug Allergy Acti ve Contrast Allergy Pre Med Pack Unknown Drug Allergy Active Decadron Unknown Drug Allergy Active azelastine Azelastine Unknown Drug Allergy Activ e corticosteroid and/or corticosteroid derivative (FN) Corticosteroids Unknown Drug Allergy Active REASON FOR REFERRAL No Information MEDICATIONS Medication SIG (Take, Route, Frequency, Duration) Notes Start Date End Date Status Gemfibrozil 600 MG 1 tablet 30 minutes before morning and evening meals Orally Twice a day for 30 day(s) Active Sertraline HCl 100 MG 1 tablet Orally On ce a day for 30 day(s) Active Lysine Acetate Activ e Ezetimibe 10 MG 1 tablet Orally Once a day for 30 day(s) Active Verapamil HCl ER 300 MG 1 capsule Orally Once a day for 30 day(s) Active Fluconazole 100 MG 1 tablet Orally for 10 day(s) Active oxyCODONE-Acetaminophen 5-32 5 MG 1 tablet as needed Orally every 6 hrs Active Calcium Carbonate+Vitamin D Active Fexofenadine HCl 60 MG 1 tablet Orally T wice a day for 30 day(s) Active Diclofenac Sodium 1 % as directed Externally Active Zinc 50 MG 1 tablet Orally Once a day for 30 day(s) Active Omeprazole 40 MG 1 capsule 30 minutes before morning meal Orally Once a day for 30 day(s) Active Triamcinolone & Emollient Active metFORMIN HCl 500 MG 1 tablet with a rosi l Orally Once a day for 30 day(s) BID Active Levothyroxine Sodium 125 MCG 1 tablet in the morning on an empty stomach Orally Once a day for 30 day(s) Active Cyclobenzaprine HCl 5 MG 1 tablet at bed time as needed Orally Once a day for 30 day(s) Active hydroCHLOROthiazide 25 MG 1 tablet in th e morning Orally Once a day for 30 day(s) Active LORazepam 1 MG 1 tablet at bedtime as needed Orally Once a day Active Ramipril 5 MG 1 capsule Orally Onc e a day for 30 day(s) Active SOCIAL HISTORY Tobacco Use: Social History Observation Description Date Details (start date - stop date) Former Smoker NA - NA Sex Assigned At : Social History Observation Description Sex Assigned At Unknown Tobacco Use/Smoking Question Answer Notes Are you a former smoker How long has it been since you last smoked? 1-5 years PROBLEMS Problem Type ICD Code Onset Dates Problem Status W/U Status Risk SNOMED Code Notes Problem Spondylosis without myelopathy or radiculopathy, cervical region (M47.812) Active confirmed Cervical spondylosis without myelopathy (538219702) Problem Spondylosis without myelopathy or radiculopathy, lumbar region (M47.816) Active confirmed Lumbosacral spondylosis without myelopathy (43223057) Encounters Encounter Location Date Provider Diagnosis [facility] [address] [address] 04/26/2022 MIKE FARID Spondylosis without myelopathy or radiculopathy, lumbar region M47.816 ; Spondylosis without myelopathy or radiculopathy, cervical region M47.812 and custodial (current) use of opiate analgesic Z79.891 ASSESSMENTS Encounter Date Diagnosis Assessment Notes Treatment Notes Treatment Clinical Notes 04/26/2022 Spondylosis without myelopathy or radiculopathy, cervical region (ICD-10 - M47.812) 04/26/2022 Spondylosis without myelopathy or radiculopathy, lumbar region (ICD-10 - M47.816) 04/26/2022 custodial (current) use of opiate analgesic (ICD-10 - Z79.891) 04/26/2022 Other [facility] radiological studies, I reviewed the patient's cervical MRI done on 03/09/2021 that revealed C3-4 small disc protrusion with partial effacement of the ventral thecal sac moderate left foraminal narrowing due to facet and uncovertebral joint hypertrophy C2-3 facet arthropathy and mild foraminal narrowing bilaterally regarding medication management, we checked the prescription monitoring program it was appropriate, as long as the patient is compliant with her narcotic agreement agrees an occasional urine drug screen tests, the patient can continue current doses with her prescriber since she has been stable, at this point I do not see a reason to do any changes with her medications. Regarding physical therapy, we recommended physical therapy exercises Regarding interventional procedures, the patient is refusing any interventional procedures, and since we are mainly an interventional pain clinic we recommended to the patient to return back to her primary care physician for continuation of medication management. Thank you Dr. Dow for your kind referral, please feel free to call me with any questions PLAN OF TREATMENT No Information Insurance Providers Payer Name Payer Address Payer Phone Subscriber Number Group Number Insured Name Patient Relationship to Insured Coverage Start Date Coverage End Date UMR by [facility] [address] [address] [place], [place] [id number] PPO Shimon Herring Spouse - patient is the spouse of the insured [place] [address] [place] [phone] [id number] WESLEY HERRING Self - patient is the insured MEDICAL (GENERAL) HISTORY Medical History History ICD Code TENDINITIS IRON DEFICEINCY ANEMIA MULTILEVEL DDD FIBROMYALGIA OSTEOARTHRITIS PERIPHERAL NEUROPATHY TYPE II DIABETES HYPOTHYROIDISM GASTRIC ULCER MODREATE MAJOR DEPRESSION GENERALIZED ANXIETY DISORDER SEASONAL ALLERGIES RECURRENT COLD SORES HYPERLIPIDEMIA HYPERTENSION OBESITY Surgical History Surgery Date(Month/Year)
--- OUTSIDE RECORDS SUMMARY | 2023-02-16 05:55 | XMS_ITS | Continuity of Care Document ---
Author Name Unknown Organization [facility] Address [address] [place] [address]- Care Team Providers Care Manager Supply Chain Planning Name Role Phone Andrei FIELD, Emi Primary Care Physician Encounter [facility] [place] Date(s): 03/22/20 - 04/21/20 [facility] [address] [address]- [facility] Attending Physician: Sonya Nava Admitting Physician: AdmtrSonya Referring Physician: Admtr, Ar8 Allergies, Adverse Reactions, Alerts Substance Reaction Severity Status penicillin Active Percocet 5/325 Active Medications Erythromycin 500, mg, By Mouth, Every 12 hours, 10 tablet, 0, 0, 12/29/07 15:15:20, Print BERLIN Number, ADS OPPTHS, 103, Constant Indicator Start Date: 12/29/07 Stop Date: 01/03/08 Status: Ordered Tylox 1, capsule, By Mouth, Every 6 hours, 12, capsule, 0, 0, 12/29/07 15:14:11, Print BERLIN Number, ADS OPPTHS, 54, Constant Indicator Start Date: 12/29/07 Status: Ordered
--- OUTSIDE RECORDS SUMMARY | 2023-02-16 05:55 | XMS_ITS | Continuity of Care Document ---
Author Name Unknown Organization [facility] Address [address] [place] [address]- Care Team Providers Care Assessment Clinician Name Role Phone Andrei FIELD, Emi Primary Care Physician [phone] [place] [facility] [place] - 09/08/[address] [address]- [facility] Attending Physician: Sonya Nava Admitting Physician: AdmSonya landaverde Referring Physician: AdmtrSonya Allergies, Adverse Reactions, Alerts Substance Reaction Severity [...]
--- OUTSIDE RECORDS SUMMARY | 2023-02-16 05:55 | XMS_ITS | Continuity of Care Document ---
Author Name Unknown Organization [facility] Address [address] [place] [address]- Care Team Providers Care Dryer Operator Name Role Phone Emi Forbes MD Primary Care Physician [phone] Encounter [facility] Date(s): 12/02/22 - 01/02/23 [facility] [address] [place] [address]- Attending Physician: Kuldip FIELD, Sin Referring Physician: Not on Staff, Referring MD Allergies, Adverse Reactions, Alerts Substance Reaction Severity [...] Constant Indicator Start Date: 12/29/07 Status: Ordered Patient Care team information Care Team Personnel Name: Emi Forbes MD Position: [facility] Outreach Member Role: PCP Address: Address: [address] [place] [address] [place] [address]- Care Team Related Persons Name: MARÍA EISENBERG Address: home [address] [place] [address]
--- OUTSIDE RECORDS SUMMARY | 2023-02-16 05:55 | XMS_ITS | Continuity of Care Document ---
Author Name Unknown Organization [facility] [place] Address [address] [place] [address]- Care Team Providers Care Denture Contour Wire Specialist Name Role Phone Emi Forbes MD Primary Care Physician [phone] Encounter [facility] Date(s): 01/09/23 - 02/08/23 [facility] [address] [place] [address]- Allergies, Adverse Reactions, Alerts Substance Reaction Severity [...] Team Personnel Name: Emi Forbes MD Position: [facility] Outreach Member Role: PCP Address: Address: [address] [place] [address] Emi [place] [address]- Care Team Related Persons Name: MARÍA EISENBERG Address: home [address] [place] [address]
[2023-02-16 06:17] LABS: Glucose, Whole Blood 112 mg/dL (60-115)
[2023-02-16] MEDS: methocarbamoL 750 MG TABLET PO (06:28)
[2023-02-16] MEDS: Lactated Ringers 1,000 ML 100 ML IVCONT (06:28)
--- NOTE | 2023-02-16 07:14 | MHC.SHP ---
Pre-Procedural Eval Section A Date of Service: 02/16/23 The patient is an INPATIENT: No Changes since office visit: No Cold of Flu in the past 2 weeks, No New Medical Problems, No Changes in Medication and No Patient answered all questions Section B Chief Complaint: Lumbar Fusion Surgery Allergies: Allergies Allergy/AdvReac Type Severity Reaction Status Date / Time gabapentin Allergy Severe Anaphylaxis Verified 02/16/23 06:34 prednisone Allergy Severe Anaphylaxis Verified 02/06/23 15:57 cortisone Allergy Intermediate Swelling Verified 02/06/23 15:57 ondansetron [From Zofran] Allergy Mild Hypotension Verified 02/06/23 15:57 NSAIDS (Non-Steroidal AdvReac Intermediate affected Verified 02/06/23 15:57 Anti-Inflamma renal function Review of Systems Sugical H&P ROS: Negative: Constitution, Cardiovascular, Respiratory, Neurological, Psychiatric, Hem-Onc, Allergic/Immunologic, Gastrointestinal, Genitourinary, Musculoskeletal, Integumentary, Endocrine and Eyes/Ears/Nose/Throat Exam Surgical H&P Exam: Not Evaluated: HEENT, Not Evaluated: Heart, Not Evaluated: Lungs, Not Evaluated: Extremities, Not Evaluated: Abdomen, Not Evaluated: Skin and Not Evaluated: Neurological Plan I have reviewed the history and physical and performed a pertinent physical examination on my patient. No changes have occurred unless specified. L5-S1 Transkambin lumbar fusion surgery Time Spent With Patient Time: Total time managing care of this patient today _10___ minutes.
--- NOTE | 2023-02-16 11:45 | W.PM.OPN ---
Operative Note Operative Note Date of Service: 02/16/23 Narrative: Preop diagnosis: lumbar degenerative disc disease L5-S1 with back pain and lumbar radiculopathy Postop diagnosis: same Procedure: this 57-year-old female had 2 lumbar microdiskectomies done for left lumbar radiculopathy in the past. she presented with intractable low back pain and right lumbar radiculopathy. An MRI shows severe degenerative disc disease. She was scheduled for an oblique lateral lumbar interbody fusion L5-S1 with possible conversion to a transforaminal lumbar interbody fusion. The procedure complications were explained. She was consented. She was brought to the operating room and endotracheally intubated. Foster in a prone position on the Brandin spine table. Prepped and draped was done followed by tomorrow. The incision was made into the right flank. An initial dilator was advanced towards the disc space and a stimulation probe was used to find a silent window. Unfortunately I was unable to find a sign and window and therefore I converted to procedure to a transforaminal lumbar interbody fusion. A left paramedian incision was made lateral from the L5 and S1 pedicles in preparation for pedicle screw placement. The muscle fascia was split then the posterolateral gutter was exposed. A pediguard tap was used to create a transpedicular trajectory into the vertebral body. K-wire was placed. A Specially designed instrument was advanced over the K-wire to decorticate the posterolateral gutter. Then a pedicle screw was advanced over the K-wire and the K-wire was removed. The steps were taken for the left L5 and S1 pedicle where 6.5 x 40 mm screws were inserted. Then a right paramedian incision was made. The above steps were repeated with the exception of pedicle screw placement. The K-wires were bended out of the surgical field. The paravertebral muscles were released and the L5-S1 lamina and facet joint were exposed on the right side. A complete facetectomy was done to expose the L5 nerve root and remainder of the disc space. A very large L5 nerve root was encountered, which only left a small window to access the disc space. A dilator was inserted into the disc space under direct vision through which a diskectomy was performed. The disc space was filled with allograft. K-wire was left behind. The I dilator was removed after which a 9 mm x 27 mm cage filled with allograft was inserted into the L5-1 disc space under fluoroscopic guidance. Hemostasis was done. The physician phlebotomist lab assistant to go over procedure. He placed 6.5 x 40 mm screws over the K-wires on the right side. Two 40 mm rods were used to connect the pedicle screws and locked down with locking cp. final x-rays in AP and lateral projection showed a good position of the interbody cage and posterior instrumentation. The posterolateral gutter on the left side was filled with allograft. The 2 paramedian incisions and 2 incisions in the flank were closed with an 0 Vicryl for the fascia and 3-0 Vicryl for the subdermal layer. All sponge and needle counts were correct. Patient was extubated and transported in stable condition to recovery room Surgeon: Lukas Samaniego MD Assist: Davis Correia Anesthesia: general Estimated blood loss: 35 mL Specimen: none Diisposition: Admit to inpatient for monitoring
[2023-02-16] MEDS: HYDROmorphone HCl 0.5 MG/0.5 ML SYRINGE 0.25 MG IVPUSH ×4 (11:48→13:09)
[2023-02-16] MEDS: fentaNYL citrate/PF 100 MCG/2 ML VIAL 25 MCG IVPUSH ×2 (12:11→12:23)
[2023-02-16] MEDS: oxyCODONE HCl Immed Release 5 MG TABLET PO (12:48)
--- NOTE | 2023-02-16 13:57 | PHA.MEDREC ---
Pharmacy Consult ? Medication Reconciliation Pharmacy has completed the medication reconciliation. confirmed med rec done by nursing.
[2023-02-16] MEDS: 0.9 % Sodium Chloride 1,000 ML 75 ML IVCONT (14:27)
[2023-02-16] MEDS: Acetaminophen 1,000 MG/100 ML PIGGYBACK 400 MG IV ×2 (14:27→17:48)
[2023-02-16] MEDS: Ketorolac Tromethamine 15 MG/ML VIAL IVPUSH ×2 (14:28→17:45)
[2023-02-16] MEDS: oxyCODONE HCl Immed Release 5 MG TABLET 10 MG PO ×2 (14:51→18:40)
[2023-02-16] MEDS: lisinopriL 20 MG TABLET PO ×2 (15:17→19:57)
[2023-02-16] MEDS: Dicyclomine HCl 10 MG CAPSULE PO ×2 (15:17→19:58)
[2023-02-16] MEDS: ceFAZolin Sodium/Dextrose,Iso 2 GM/50 ML PIGGYBACK IV ×2 (15:17→19:55)
[2023-02-16] MEDS: valACYclovir HCL 1,000 MG TABLET 1000 MG PO ×2 (15:17→19:57)
[2023-02-16] MEDS: HYDROmorphone HCl 1 MG/ML SYRINGE IVPUSH ×3 (15:54→22:55)
[2023-02-16 16:22] LABS: Glucose, Whole Blood 145 mg/dL (60-115)
[2023-02-16] MEDS: LORazepam 1 MG TABLET PO (19:57)
[2023-02-16] MEDS: Sertraline HCL 100 MG TABLET PO (19:58)
[2023-02-16] MEDS: metFORMIN HCl 1,000 MG TABLET 1000 MG PO (19:58)
[2023-02-16] MEDS: TiZANidine HCL 4 MG TABLET PO (19:58)
[2023-02-16] MEDS: Docusate Sodium 100 MG CAPSULE PO (19:58)
[2023-02-16] MEDS: gemfibroziL 600 MG TABLET PO (19:58)
[2023-02-16 20:16] LABS: Glucose, Whole Blood 123 mg/dL (60-115)
[2023-02-17] MEDS: Ketorolac Tromethamine 15 MG/ML VIAL IVPUSH ×2 (00:10→05:28)
[2023-02-17] MEDS: Acetaminophen 1,000 MG/100 ML PIGGYBACK 400 MG IV ×2 (00:11→05:29)
[2023-02-17 00:33] VITALS: BP 138/68; PULSE 118; RESP 18; TEMP 36.7; O2SAT 93
[2023-02-17] MEDS: HYDROmorphone HCl 1 MG/ML SYRINGE IVPUSH (03:03)
[2023-02-17] MEDS: ceFAZolin Sodium/Dextrose,Iso 2 GM/50 ML PIGGYBACK IV (03:10)
[2023-02-17 03:16] VITALS: BP 146/78; PULSE 108; RESP 18; TEMP 36.1; O2SAT 95
[2023-02-17] MEDS: Omeprazole 40 MG CAPSULE.DR PO (05:28)
[2023-02-17] MEDS: Levothyroxine Sodium 125 MCG TABLET PO (05:28)
[2023-02-17] MEDS: oxyCODONE HCl Immed Release 5 MG TABLET 10 MG PO (06:19)
[2023-02-17 07:35] VITALS: BP 141/65; PULSE 100; RESP 16; TEMP 36.6; O2SAT 93
[2023-02-17] MEDS: valACYclovir HCL 1,000 MG TABLET 1000 MG PO (07:36)
[2023-02-17] MEDS: Docusate Sodium 100 MG CAPSULE PO (07:36)
[2023-02-17] MEDS: metFORMIN HCl 1,000 MG TABLET 1000 MG PO (07:36)
[2023-02-17] MEDS: Dicyclomine HCl 10 MG CAPSULE PO (07:36)
[2023-02-17] MEDS: Furosemide 40 MG TABLET PO (07:36)
[2023-02-17] MEDS: TiZANidine HCL 4 MG TABLET PO (07:36)
[2023-02-17] MEDS: gemfibroziL 600 MG TABLET PO (07:36)
[2023-02-17] MEDS: lisinopriL 20 MG TABLET PO (07:37)
[2023-02-17] MEDS: hydroCHLOROthiazide 25 MG TABLET PO (07:37)
[2023-02-17 07:58] LABS: Glucose, Whole Blood 135 mg/dL (60-115)
--- NOTE | 2023-02-17 07:59 | PM.DS ---
DS: Providers Provider Date of Service: 02/17/23 Date of admission: 02/16/23 05:53 Primary care physician: Delfin Dow MD DS: Diagnosis Discharge Diagnosis (1) Lumbar radiculopathy: Status: Acute DS: Summary Time Spent with Patient Time attestation: Total time managing care of this patient today ____ minutes. Discharge coordination time: Less than 30 minutes Quality: Safe Use of Opioids Does Pt have an Active Cancer Diagnosis on the Problem List?: No Quality: Stroke Does the patient have a stroke diagnosis?: No Physical Exam Vital Signs: Vital Signs: Last Vital Signs Temp 97.9 F 02/17/23 07:35 Pulse 100 02/17/23 07:35 Resp 16 02/17/23 07:35 BP 141/65 H 02/17/23 07:35 Pulse Ox 93 02/17/23 07:35 O2 Del Method Room Air 02/17/23 07:35 O2 Flow Rate 2 02/16/23 14:00 BMI result Body Mass Index 29.8 DS: Data Data Completed and Pending Labs on day of discharge: Laboratory Results - last 24 hr 02/16/23 02/16/23 02/17/23 16:07 20:04 07:02 POC Glucose 145 H 123 H 135 H Discharge Plan Discharge Anticipated Discharge Date/Time: 02/17/23 08:05 Patient Disposition: Home, Self-Care Discharge Diagnosis: s/p transforaminal lumbar interbody fusion L5-S1 Referrals: Delfin Dow MD [Primary Care Provider] - 1 Week Discharge Medications: New hydromorphone 2 mg tablet See Rx Instructions .ROUTE .COMPLEX PRN (Reason: pain) Qty: 40 0RF Rx Instructions: Take 1-2 tabs by mouth every 4 hours as needed for moderate-severe pain. Continued metformin 500 mg tablet 1,000 mg PO BID valacyclovir 1 gram tablet 1,000 mg PO TID sertraline 100 mg tablet 100 mg PO BEDTIME omeprazole 40 mg capsule,delayed release(DR/EC) 40 mg PO DAILY gemfibrozil 600 mg tablet 600 mg PO BID levothyroxine [Levoxyl] 125 mcg tablet 125 mcg PO DAILY verapamil 300 mg capsule, [address] 300 mg PO BEDTIME hydrochlorothiazide 25 mg tablet 25 mg PO DAILY ramipril 5 mg capsule 5 mg PO TID oxycodone-acetaminophen 5-325 mg tablet 1 tab PO QID PRN (Reason: Pain) dicyclomine 10 mg capsule 10 mg PO TID tizanidine 4 mg tablet 4 mg PO BID lorazepam 1 mg tablet 1 mg PO BEDTIME indomethacin 25 mg capsule 25 mg PO BID Qty: 30 0RF Rx Instructions: administer with food or milk furosemide [Lasix] 40 mg tablet 40 mg PO DAILY Qty: 3 0RF Discharge Orders: Discharge Order (Routine); Ordered 02/17/23 Ordered By: Tyrone Duran Diet: Advance to usual diet Activity on Discharge: As tolerated Stand Alone Forms: Patient Portal Discharge page Activity Restrictions/Additional Instructions: After your spinal surgery we ask you to observe the following restrictions/guidelines: Activity: It is normal to feel some discomfort as you increase your activity, but that will improve with time. We ask you avoid heavy lifting or acitivities that cause pain. As a general rule, 8lbs is a safe limit for lifting right after surgery. Walk as much as you feel comfortable but not to exhaustion. You will feel extra tired the first few days after surgery. Stay well hydrated. It is OK to walk up and down stairs You may return to driving when you are off narcotics (such as vicodin, oxycodone, dilaudid, etc), and you are back to normal functional capacity. If you have any concerns please check with office before driving. Return to work is specific to each patient and each surgery, so please speak with your doctor/PA at first follow up. Please bring paperwork such as FMLA at that time if you need it filled out. Medications: We will give you a short supply of narcotics after surgery (usually one weeks worth). If you need more please call the office but do not use more than prescribed. You will need to give our office 48 hours notice if you need narcotics refilled and we do not fill narcotics on weekends or evenings. If you are on a narcotic, it is a good idea to take a stool softener such as colace or senna to avoid constipation If you take blood thinner such as aspirin, Plavix, Coumadin, Effient, Eliquis etc for conditions such as Afib, DVT, Pulmonary embolus, coronary disease, stents etc please speak with your surgeon about specific details as to when you can resume these medications. You can resume NSAIDs on post op day 1 (eg: Motrin, Naproxen, etc). Follow up: Please call the office, , after surgery to arrange a 3 week follow up for wound check. Wound Care: You may remove your dressing on the first day after surgery. You may leave open to air. Please do not remove the steri strips underneath. they will fall off on their own in one week. IT IS NORMAL FOR THE WOUND TO OOZE OR BE BLOODY FOR A FEW DAYS AFTER SURGERY. IF THIS HAPPENS JUST PLACE NEW DRESSING OVER IT TO AVOID STAINING CLOTHES. You may shower on post op day # 1 We ask that you do not let the water soak the wound. If it does get wet, just towel dry lightly. Please do not scrub your incision or place any type of chemical/ointment on the wound. No tub baths, pools or jacuzzis for one month. If you have any leaking or redness from your wound, or fevers, please call office Care Plan Goals: return to activity as tolerated Health Concerns: none Plan of Treatment: f/u in outpatient clinic in 3 weeks Assessment: stable Discharge Date/Time: 02/17/23 09:18
--- NOTE | 2023-02-17 07:59 | HO.NEURO.PN ---
Neurosurgery Operative Note Date of Service: 02/17/23 Narrative: POD: 1 Procedure: oblique lateral lumbar interbody fusion with conversion to transforaminal lumbar interbody fusion L5-S1 Patient reports she is up walking around is otherwise doing well. She feels her symptoms are much better than pre-operatively. She still reports mild back pain, with good relief with pain medication. She is voiding well, and tolerating her diet. Afebrile, vital signs stable. Full strength 5/5 LE. No radicular symptoms reported. Back dressings have some staining without signs of hematoma. No active sanguineous drainage. Area is clean and dry. Plan: Patient meets criteria to be medically discharged home. Pain medication will be sent to her pharmacy on file. She was seen at bedside with Dr. Samaniego.
--- NOTE | 2023-02-17 08:30 | MHC.CM.PN ---
CM MET WITH PT AT BEDSIDE. PT HAS BEEN MEDICALLY CLEARED FOR DC HOME, NO SERVICES. INDEPENDENT AT BASELINE. PT HAS OWN RIDE HOME.
--- NOTE | 2023-02-17 14:48 | HO.POSTANES ---
Post Anesthesia Evaluation Post Anesthesia Evaluation Date of Service: 02/17/23 Vital Signs: Vital Signs Temp Pulse Resp BP Pulse Ox O2 Del Method 02/17/23 07:35 97.9 F 100 16 141/65 H 93 Room Air 02/17/23 03:16 97 F 108 H 18 146/78 H 95 Room Air Anesthesia: General Endotracheal-GETA Mental Status: Awake Pain Control: Satisfactory Nausea/Vomiting: None Hydration: Adequate Anesthesia-Related Issues: No Anes. Related Issues
== END 2023-02-17 09:18 | disposition home or self-care (01) | DRG 460 ==
LOC: HO.SSSA 05:53 → HO.S3 12:29
PROVIDERS: Admitting Provider Neurological Surgery; PCP Internal Medicine; Visit Provider Neurological Surgery
PROC: 0SG00A0 Fusion of Lumbar Vertebral Joint with Interbody Fusion Device, Anterior Approach, Anterior Column, Open Approach (ICD-10-PCS; principal; 2023-02-16 07:30)
DX: M51.16 Intervertebral disc disorders with radiculopathy, lumbar region (principal); F41.9 Anxiety disorder, unspecified; E11.9 Type 2 diabetes mellitus without complications; E78.00 Pure hypercholesterolemia, unspecified; K21.9 Gastro-esophageal reflux disease without esophagitis; E03.9 Hypothyroidism, unspecified; Z87.891 Personal history of nicotine dependence; Z79.84 Long term (current) use of oral hypoglycemic drugs; Z79.890 Hormone replacement therapy; Z79.899 Other long term (current) drug therapy
CPT/HCPCS: 82947; 97161; C1713; J0131; J0330; J0690; J1100; J1170; J1885; J2250; J2370; J2371; J2405; J3010; L8699

== ENCOUNTER → 2023-02-16 05:53 | Outpatient (BNV) | payer OTHER, MEDICARE, SELFPAY | PROVIDERS: Admitting Provider Neurological Surgery; PCP Internal Medicine; Visit Provider Neurological Surgery | DX: M54.16 Radiculopathy, lumbar region (principal) | CPT/HCPCS: 20930; 20936; 22633; 22840; 22853; 63052; 99024 ==

== ENCOUNTER 2023-03-11 14:34 | Outpatient (AMB) | payer OTHER, MEDICARE, SELFPAY ==
--- NOTE | 2023-03-11 15:01 | HO.SPINEOV ---
Intake Intake Visit Reasons: 1st post op Allergies gabapentin Allergy (Severe, Verified 02/16/23 06:34) Anaphylaxis prednisone Allergy (Severe, Verified 02/06/23 15:57) Anaphylaxis cortisone Allergy (Intermediate, Verified 02/06/23 15:57) Swelling ondansetron [From Zofran] Allergy (Mild, Verified 02/06/23 15:57) Hypotension NSAIDS (Non-Steroidal Anti-Inflamma Adverse Reaction (Intermediate, Verified 02/06/23 15:57) affected renal function Assessment & Plan Assessment & Plan (1) Status post lumbar spinal arthrodesis: Code(s): Z98.1 - Arthrodesis status Plan Dear colleague, On 03/11/2023, saw for postoperative visit Ximena Herring want to enter transforaminal lumbar interbody fusion L5-S1 3 weeks ago. Initially, the plan was to do an oblique lateral lumbar interbody fusion but I was unable to find a silent window to safely enter the foramen. She states that she has intermittent radiating pain down her leg and tingling of her feet. I do think the symptoms are related to the irritation of the nerve roots and should recover over time. Otherwise, she looks quite comfortable in the office. The incisions are healed. I would like to follow up in 6 weeks with standing x-rays. Thank you for letting me take care of your patient. Lukas Samaniego MD, PhD Spine Fellowship Trained Neurosurgeon Director, [facility] Medications: Discontinued tizanidine 4 mg PO Q8H PRN 30 tabs 0RF muscle spasticity pregabalin 75 mg PO BID 60 caps 2RF Coding Level of Care Code Global (27967) Diagnoses Status post lumbar spinal arthrodesis Z98.1
== END 2023-03-11 14:50 | disposition home or self-care (01) ==
PROVIDERS: PCP Internal Medicine; Visit Provider Neurological Surgery
DX: Z98.1 Arthrodesis status (principal)
CPT/HCPCS: 99024

== ENCOUNTER → 2023-03-11 14:34 | Outpatient (BNVA) | payer OTHER, MEDICARE, SELFPAY | PROVIDERS: PCP Internal Medicine; Visit Provider Neurological Surgery ==

== ENCOUNTER 2023-04-08 14:38 | Outpatient (AMB) | payer OTHER, MEDICARE, SELFPAY ==
[2023-04-08 14:52] VITALS: BP 162/78; PULSE 95; TEMP 36.3; O2SAT 97; BMI 29.5
--- NOTE | 2023-04-08 14:52 | A.OFFVIS_ITS ---
Intake Vital Signs 04/08/23 14:52 Height 5 ft 2 in Weight 161 lb 2.526 oz BMI 29.5 BP 162/78 H Blood Pressure Location Rt brachial Position Sitting Pulse 95 Pulse Source Pulse Oximeter Temp 97.3 F Temp Source Skin Pulse Oximetry (%) 97 Intake Visit Reasons: OA Intake Note: New pt presents today for OA consult. 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 Accompanied by: Spouse Allergies gabapentin Allergy (Severe, Verified 04/08/23 15:02) Anaphylaxis prednisone Allergy (Severe, Verified 04/08/23 15:02) Anaphylaxis cortisone Allergy (Intermediate, Verified 04/08/23 15:02) Swelling ondansetron [From Zofran] Allergy (Mild, Verified 04/08/23 15:02) Hypotension NSAIDS (Non-Steroidal Anti-Inflamma Adverse Reaction (Intermediate, Verified 04/08/23 15:02) affected renal function duloxetine [From Cymbalta] Adverse Reaction (Verified 04/08/23 15:03) Unknown pregabalin [From Lyrica] Adverse Reaction (Verified 04/08/23 15:03) Swelling Medication List - Last Reconciled 04/08/23 by Darius London MD calcium carbonate-vitamin D3 600 mg-25 mcg (1,000 unit) caps PO diclofenac sodium 1% topical BID dicyclomine 10 mg PO TID gemfibrozil 600 mg PO BID hydrochlorothiazide 25 mg PO DAILY hydromorphone 2 mg PO Q6H PRN indomethacin 25 mg PO BID levothyroxine (Levoxyl) 125 mcg PO DAILY lorazepam 1 mg PO BEDTIME lysine 500 mg PO BID melatonin 10 mg PO BEDTIME PRN metformin 1,000 mg PO BID omeprazole 40 mg PO DAILY oxycodone-acetaminophen 5-325 mg 1 tab PO QID PRN ramipril 5 mg PO TID sertraline 100 mg PO BEDTIME tizanidine 4 mg PO BID valacyclovir 1,000 mg PO TID verapamil ER 300 mg PO BEDTIME HPI HPI Comments History of Present Illness Details And said this is a 58-year-old female was referred for evaluation of diffuse pain. She stated that she has had fibromyalgia diagnosed many years ago. She was on NSAIDs for years and they were stopped due to concern for kidney disease. She was on Cymbalta at some point and she had a shopping spree. She was also tried on Lyrica which caused leg swelling. Today patient has complaints is right knee pain when kneeling down. She also has stiffness of her hands lasting 2-3 hours. Her symptoms are worse with activity like yves. She has had neck surgery, lumbar spine surgery as well as left knee surgery for meniscal tear. [facility] Medical History (Updated 04/08/23 @ 15:46 by Darius London MD) Fibromyalgia Anxiety Depression Elevated cholesterol GERD (gastroesophageal reflux disease) Hypothyroid Diabetes HTN (hypertension) Cervical radiculopathy Arthritis Surgical History Hx of abdominal hysterectomy History of bilateral carpal tunnel release Hx of tonsillectomy Hx of knee surgery History of back surgery Hx of neck surgery Hx of neck surgery Social History Household Members: Spouse Housing: House Are you a primary home health aide caregiver to a significant other at home: No Do you presently have visiting nurse or other home services: No Alcohol intake: never Patient Tobacco Use Status: Former Tobacco user Quit Date: 2016 Tobacco use type: Cigarette Review of Systems Const Reports weight loss Eyes Reports itchy eyes and Reports eye pain GI Reports constipation, Reports heartburn and Reports diarrhea Reports vaginal dryness Musc Reports arthralgias and Reports stiffness Aller/Immun Reports itchy eyes Physical Exam Vital Signs: Last Vital Signs Temp 97.3 F 04/08/23 14:52 Pulse 95 04/08/23 14:52 BP 162/78 H 04/08/23 14:52 Pulse Ox 97 04/08/23 14:52 BMI result Body Mass Index 29.5 Const General: cooperative, healthy appearing and comfortable Nutritional Appearance: overweight Orientation/consciousness: patient oriented x3 Limitations: no limitations HEENT Head: Yes normocephalic and Yes atraumatic Mouth: moist mucous membranes Resp Effort & Inspection: normal respiratory effort and able to speak in complete sentences Auscultation: clear to auscultation bilaterally Cardio Rate: regular rate Rhythm: regular rhythm Heart sounds: S1 normal heart sound present Skin General skin exam: no rashes or lesions noted Neuro General: patient oriented x3 Extrem Other: Osteoarthritic changes of both hands without active synovitis Bilateral 1st CMC joint tenderness and positive grind test Negative MCP squeeze test Normal nailfold capillaroscopy Normal range of motion of both elbows shoulders without pain Right knee warmth without swelling Right knee pain with flexion Negative MTP squeeze test Assessment & Plan Assessment & Plan (1) Generalized osteoarthritis: Code(s): M15.9 - Polyosteoarthritis, unspecified Plan: This is a 58-year-old female who presents for evaluation of diffuse pain. Patient has generalized osteoarthritis. Discussed management strategies for hand osteoarthritis. I suggested using Tylenol Arthritis, Voltaren gel. She is not interested in steroid injections as she mentioned she had an allergic reaction to it in the past. With regards to her knee pain. She mentioned that she had gel injection for her left knee more than 10 years ago and it was helpful. I suggested evaluation by Orthopedics. Will refer patient to orthopedics (2) Fibromyalgia: Code(s): M79.7 - Fibromyalgia Plan: Discussed management of fibromyalgia with patient. Is a noninflammatory, non- autoimmune central afferent processing disorder leading to a diffuse pain syndrome. Patient is on multiple psychiatry medications by her PCP. I suggested evaluation by a therapist, consider evaluation by a psychiatrist. Consider a referral for a sleep study by her PCP. Try to follow sleep hygiene practices. I suggested light exercises such as swimming, with therapy, stretching. Patient has an exercise bike at home. Advised patient to try to exercise regularly. Was intolerant to Cymbalta and Lyrica in the past. Follow-up with PCP Plan I spent 47 minutes reviewing patient's chart, evaluating patient, placing orders, counseling patient and documenting in the chart Orders: Referrals Orthopedics Referral M17.0 - Bilateral primary osteoarthritis of knee Coding Level of Care Code New Pt Level 4 (58382) Diagnoses Generalized osteoarthritis M15.9 Fibromyalgia M79.7
== END 2023-04-08 15:46 | disposition home or self-care (01) ==
PROVIDERS: PCP Internal Medicine; Visit Provider Student in an Organized Health Care Education/Training Program
DX: M15.9 Polyosteoarthritis, unspecified (principal); M79.7 Fibromyalgia
CPT/HCPCS: 99204

== ENCOUNTER → 2023-04-08 14:38 | Outpatient (BNVA) | payer OTHER, MEDICARE, SELFPAY | PROVIDERS: PCP Internal Medicine; Visit Provider Student in an Organized Health Care Education/Training Program ==

== ENCOUNTER 2023-04-15 11:10 | Outpatient (REF) | payer OTHER, MEDICARE, SELFPAY ==
--- NOTE | ~2023-04-15 | XR_ITS ---
EXAMINATION: XR LUMBOSACRAL SPINE WITH OBLIQUES CLINICAL INFORMATION: Lumbar radiculopathy. COMPARISON: None available. TECHNIQUE: AP, both oblique, and lateral views of the lumbar spine. Lateral view of the lumbosacral junction. FINDINGS: There is bony demineralization. There is a moderate thoracolumbar levoscoliosis. Vertebral body heights and alignment are normal. There has been a prior posterior fusion at L5-S1, with intact posterior fixator rods, pedicular screws and disc spacers. No hardware failure or loosening is seen. The remaining disc spaces are well-maintained. No acute fracture or spondylolisthesis is seen. There is mild anterior spondylosis at L2-L3 and L5-S1. The posterior elements are intact. The paravertebral soft tissues are unremarkable. There are aortoiliac atherosclerotic callus cages. XR/XR lumbar spine 4V min IMPRESSION: 1. No acute fracture or spondylolisthesis is seen. 2. There is well-maintained alignment status-post L5-S1 posterior fusion and discectomy, without hardware failure or loosening seen. 3. There is mild anterior spondylosis at L2-L3 and L5-S1. 4. There is a moderate thoracolumbar levoscoliosis.
== END 2023-04-15 11:11 | disposition home or self-care (01) ==
LOC: HO.HOSX 11:10
PROVIDERS: Visit Provider Physician Assistant
DX: M54.16 Radiculopathy, lumbar region (principal)
CPT/HCPCS: 72110

== ENCOUNTER 2023-04-15 14:29 | Outpatient (AMB) | payer OTHER, MEDICARE, SELFPAY ==
--- NOTE | 2023-04-15 15:18 | HO.SPINEOV ---
Intake Intake Visit Reasons: 6 weeks f/u with xrays Intake Note: Mrs. Herring is here today for her 2nd post-op visit. 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: No Allergies gabapentin Allergy (Severe, Verified 04/08/23 15:02) Anaphylaxis prednisone Allergy (Severe, Verified 04/08/23 15:02) Anaphylaxis cortisone Allergy (Intermediate, Verified 04/08/23 15:02) Swelling ondansetron [From Zofran] Allergy (Mild, Verified 04/08/23 15:02) Hypotension NSAIDS (Non-Steroidal Anti-Inflamma Adverse Reaction (Intermediate, Verified 04/08/23 15:02) affected renal function duloxetine [From Cymbalta] Adverse Reaction (Verified 04/08/23 15:03) Unknown pregabalin [From Lyrica] Adverse Reaction (Verified 04/08/23 15:03) Swelling Assessment & Plan Assessment & Plan (1) Lumbar radiculopathy: Code(s): M54.16 - Radiculopathy, lumbar region Plan Procedure: L5-S1 lumbar fusion Marisa comes in today for her 2nd postoperative visit. She states she continues to get better day by day. She reports she is very satisfied with the surgery and feels much better than she did pre-operatively. She does continue to endorse some LE symptoms, including nonspecific aching in her posterior thighs (worse on the left than right) and numbness on the soles of her bilateral feet. Of note she is diabetic, and in her previous visit notes this foot related numbness was discussed as a complication of her diabetes. She is completing a large majority of her ADLs at home. She does endorse good relief of pain with her medications, and does report getting up and going for walks each day. After reviewing her current symptoms we reviewed her lumbar spine x-ray from today, and her posterior instrumentation was explained to her. She was assured that her screw/carmen/locking caps all look to be in place, along with the disc space cage. She reported being satisfied with review of her x-ray imaging and had no further questions. Full mobility reported in her upper and lower extremities. She is able to ambulate well, and rises from a seated position without difficulty. Marisa can be discharged as a patient in does not need to follow-up unless she has some acute or new symptoms occur. Orders: Orders XR lumbar spine 4V min Today M54.16 - Radiculopathy, lumbar region Coding Level of Care Code Global (37355) Diagnoses Lumbar radiculopathy M54.16
== END 2023-04-15 15:32 | disposition home or self-care (01) ==
PROVIDERS: PCP Internal Medicine; Visit Provider Physician Assistant
DX: M54.16 Radiculopathy, lumbar region (principal)
CPT/HCPCS: 99024

== ENCOUNTER 2023-05-05 15:16 | Outpatient (REF) | payer OTHER, MEDICARE, SELFPAY | END 2023-05-05 15:17 | disposition home or self-care (01) | LOC: HO.HOSX 15:16 | PROVIDERS: Visit Provider Physician Assistant | DX: Z13.89 Encounter for screening for other disorder (principal) ==

== ENCOUNTER 2023-05-06 07:51 | Outpatient (AMB) | payer OTHER, MEDICARE, SELFPAY ==
--- NOTE | 2023-05-06 07:53 | A.OFFVIS_ITS ---
Intake Vital Signs 05/06/23 07:54 Height 5 ft 2 in Weight 161 lb BMI 29.4 Intake Visit Reasons: MARKER HAND, Bilateral knee OA Intake Note: Marisa white 58 year old female presents today as a new patient with complaints of bilateral knee pain. Patient reports pain has been present for a long time and was told by Rheumatology she has OA in her knees. States her left knee pain is the worse and in unable to kneel down. Hx of multiple left knee surgeries. She found good relief with a left knee gel injections that was given years ago. She is not able to take NSAIDs due to kidneys. Allergies gabapentin Allergy (Severe, Verified 05/06/23 08:08) Anaphylaxis prednisone Allergy (Severe, Verified 05/06/23 08:08) Anaphylaxis cortisone Allergy (Intermediate, Verified 05/06/23 08:08) Swelling ondansetron [From Zofran] Allergy (Mild, Verified 05/06/23 08:08) Hypotension NSAIDS (Non-Steroidal Anti-Inflamma Adverse Reaction (Intermediate, Verified 05/06/23 08:08) affected renal function duloxetine [From Cymbalta] Adverse Reaction (Verified 05/06/23 08:08) Unknown pregabalin [From Lyrica] Adverse Reaction (Verified 05/06/23 08:08) Swelling Medication List - Last Reconciled 05/06/23 by Ana Maria Laurent PA-C calcium carbonate-vitamin D3 600 mg-25 mcg (1,000 unit) caps PO diclofenac sodium 1% topical BID dicyclomine 10 mg PO TID gemfibrozil 600 mg PO BID hydrochlorothiazide 25 mg PO DAILY hydromorphone 2 mg PO Q6H PRN indomethacin 25 mg PO BID levothyroxine (Levoxyl) 125 mcg PO DAILY lorazepam 1 mg PO BEDTIME lysine 500 mg PO BID melatonin 10 mg PO BEDTIME PRN metformin 1,000 mg PO BID omeprazole 40 mg PO DAILY oxycodone-acetaminophen 5-325 mg 1 tab PO QID PRN ramipril 5 mg PO TID sertraline 100 mg PO BEDTIME tizanidine 4 mg PO BID valacyclovir 1,000 mg PO TID verapamil ER 300 mg PO BEDTIME HPI MARKER HAND, Bilateral knee OA HPI Details 58-year-old female who presents to the [facility] today for evaluation of bilateral knee pain. She states she has pain in her bilateral knees which is worse in her left knee. Her pain is aggravated with kneeling as well as bending and she is unable to perform her gardening activities. She had a left knee gel injection about 6 years ago which provided her relief until this year. She has a history of multiple left knee surgeries. [facility] Medical History (Updated 04/08/23 @ 15:46 by Darius London MD) Fibromyalgia Anxiety Depression Elevated cholesterol GERD (gastroesophageal reflux disease) Hypothyroid Diabetes HTN (hypertension) Cervical radiculopathy Arthritis Surgical History (Updated 05/06/23 @ 08:08 by Fawn Crowe Carol) Hx of abdominal hysterectomy History of bilateral carpal tunnel release Hx of tonsillectomy Hx of knee surgery History of back surgery Hx of neck surgery Hx of neck surgery Social History (Updated 05/06/23 @ 08:10 by ASYA Allen) Household Members: Spouse Housing: House Are you a primary skin care consultant to a significant other at home: No Do you presently have visiting nurse or other home services: No Alcohol intake: never Patient Tobacco Use Status: Former Tobacco user Quit Date: 2016 Tobacco use type: Cigarette Current occupational status: disabled Review of Systems Const All systems reviewed & are unremarkable except as noted in HPI and below Physical Exam Vital Signs: BMI result Body Mass Index 29.4 Const General: cooperative, healthy appearing, comfortable, no acute distress, well developed and alert Orientation/consciousness: patient oriented x3 HEENT Head: Yes normal to inspection, Yes normocephalic and Yes atraumatic Eyes General: appearance normal, both eyes and all related structures Resp Effort & Inspection: normal respiratory effort and able to speak in complete sentences Cardio Rate: regular rate Peripheral pulses: Peripheral pulses 2+ throughout GI Palpation (GI): Soft to palpation Skin Lesions: no lesions Rashes: no rashes Neuro General: patient oriented x3 Extrem Other: Bilateral knee: Skin intact, no erythema or joint effusion. Diffused retropatellar tenderness. Full ROM with crepitus. Negative Torsten?s. No ligamentous laxity. NVI. Results Reviewed Results Reviewed: X-rays of the bilateral knees obtained in the office today show mild medio compartmental OA with patellofemoral arthritis. Assessment & Plan Assessment & Plan (1) Bilateral primary osteoarthritis of knee: Code(s): M17.0 - Bilateral primary osteoarthritis of knee Plan We discussed options which include NSAIDS, steroid, gel injection and physical therapy. She cannot take NSAIDS due to her kidney function and she has anaphylaxis to steroid injections therefore, we will get prior approval for gel injection. She will increase activity as tolerated and see me back once these are approved. Orders: Orders XR knee standing BI Today M25.561 - Pain in right knee, M25.562 - Pain in left knee XR knee RT 2V Today M25.569 - Pain in unspecified knee XR knee LT 2V Today M25.562 - Pain in left knee Patient Instructions: Scribed for Ana Maria Laurent PA-C, by Terry Solorzano medical collections representative, on 05/06/2023 at 8:15 AM EST. IAna Maria PA-C, have personally reviewed and agree with the information entered by the scribe. Coding Level of Care Code New Pt Level 3 (47625) Diagnoses Bilateral primary osteoarthritis of knee M17.0
[2023-05-06 07:54] VITALS: BMI 29.4
== END 2023-05-06 08:48 | disposition home or self-care (01) ==
PROVIDERS: PCP Internal Medicine; Visit Provider Physician Assistant
DX: M17.0 Bilateral primary osteoarthritis of knee (principal)
CPT/HCPCS: 99203

== ENCOUNTER 2023-05-06 14:15 | Outpatient (REF) | payer OTHER, MEDICARE, SELFPAY ==
--- NOTE | ~2023-05-06 | XR_ITS ---
EXAMINATION: XR BILATERAL KNEES CLINICAL INFORMATION: Bilateral knee pain COMPARISON: None TECHNIQUE: AP standing view of bilateral knees. Lateral and sunrise views of each knee. FINDINGS: Right knee: No significant joint effusion. Minimal narrowing of the medial and lateral compartments. Tiny posterior patellar osteophytes. Left knee: Joint effusion present. Mild medial joint space narrowing. Tiny medial marginal and posterior patellar osteophytes. XR/XR knee standing BI IMPRESSION: 1. Left knee joint effusion. 2. Mild degenerative changes left knee. 3. Minimal degenerative changes right knee.
--- NOTE | ~2023-05-06 | XR_ITS ---
EXAMINATION: XR BILATERAL KNEES CLINICAL INFORMATION: Bilateral knee pain COMPARISON: None TECHNIQUE: AP standing view of bilateral knees. Lateral and sunrise views of each knee. FINDINGS: Right knee: No significant joint effusion. Minimal narrowing of the medial and lateral compartments. Tiny posterior patellar osteophytes. Left knee: Joint effusion present. Mild medial joint space narrowing. Tiny medial marginal and posterior patellar osteophytes. XR/XR knee RT 2V IMPRESSION: 1. Left knee joint effusion. 2. Mild degenerative changes left knee. 3. Minimal degenerative changes right knee.
--- NOTE | ~2023-05-06 | XR_ITS ---
EXAMINATION: XR BILATERAL KNEES CLINICAL INFORMATION: Bilateral knee pain COMPARISON: None TECHNIQUE: AP standing view of bilateral knees. Lateral and sunrise views of each knee. FINDINGS: Right knee: No significant joint effusion. Minimal narrowing of the medial and lateral compartments. Tiny posterior patellar osteophytes. Left knee: Joint effusion present. Mild medial joint space narrowing. Tiny medial marginal and posterior patellar osteophytes. XR/XR knee LT 2V IMPRESSION: 1. Left knee joint effusion. 2. Mild degenerative changes left knee. 3. Minimal degenerative changes right knee.
== END 2023-05-06 14:16 | disposition home or self-care (01) ==
LOC: HO.HOSX 14:15
PROVIDERS: Visit Provider Physician Assistant
DX: M17.0 Bilateral primary osteoarthritis of knee (principal)
CPT/HCPCS: 73560; 73565

== ENCOUNTER 2023-06-17 15:10 | Outpatient (AMB) | payer OTHER, MEDICARE, SELFPAY ==
--- NOTE | 2023-06-17 15:11 | MHC.OFFVIS ---
Intake Vital Signs 06/17/23 15:25 Height 5 ft 2 in Weight 161 lb BMI 29.4 Intake Visit Reasons: ov- bilateral knee Durolane injection Intake Note: Marisa a 58 year old female presents today for a bilateral knee Durolane injection. Allergies gabapentin Allergy (Severe, Verified 06/17/23 15:26) Anaphylaxis prednisone Allergy (Severe, Verified 06/17/23 15:26) Anaphylaxis cortisone Allergy (Intermediate, Verified 06/17/23 15:26) Swelling ondansetron [From Zofran] Allergy (Mild, Verified 06/17/23 15:26) Hypotension NSAIDS (Non-Steroidal Anti-Inflamma Adverse Reaction (Intermediate, Verified 06/17/23 15:26) affected renal function duloxetine [From Cymbalta] Adverse Reaction (Verified 06/17/23 15:26) Unknown pregabalin [From Lyrica] Adverse Reaction (Verified 06/17/23 15:26) Swelling HPI ov- bilateral knee Durolane injection HPI Details 58-year-old female who returns to the office today for bilateral knee Durolane injection. [facility] Medical History (Updated 04/08/23 @ 15:46 by Darius London MD) Fibromyalgia Anxiety Depression Elevated cholesterol GERD (gastroesophageal reflux disease) Hypothyroid Diabetes HTN (hypertension) Cervical radiculopathy Arthritis Surgical History Hx of abdominal hysterectomy History of bilateral carpal tunnel release Hx of tonsillectomy Hx of knee surgery History of back surgery Hx of neck surgery Hx of neck surgery Social History Household Members: Spouse Housing: House Are you a primary anesthesiologist and critical care to a significant other at home: No Do you presently have visiting nurse or other home services: No Alcohol intake: never Patient Tobacco Use Status: Former Tobacco user Quit Date: 2016 Tobacco use type: Cigarette Current occupational status: disabled Review of Systems Const All systems reviewed & are unremarkable except as noted in HPI and below Physical Exam Vital Signs: BMI result Body Mass Index 29.4 Const General: cooperative, healthy appearing, comfortable, no acute distress, well developed and alert Orientation/consciousness: patient oriented x3 HEENT Head: Yes normal to inspection, Yes normocephalic and Yes atraumatic Eyes General: appearance normal, both eyes and all related structures Resp Effort & Inspection: normal respiratory effort and able to speak in complete sentences Cardio Rate: regular rate Peripheral pulses: Peripheral pulses 2+ throughout GI Palpation (GI): Soft to palpation Skin Lesions: no lesions Rashes: no rashes Neuro General: patient oriented x3 Extrem Other: Bilateral knee: Skin intact, no erythema or joint effusion. Diffused retropatellar tenderness. Full ROM with crepitus. Negative Torsten?s. No ligamentous laxity. NVI. Office Procedures Joint Injection/Drain Joint Injection/Drain Details: Durolane x 2 Primary Site: right knee Secondary Site: left knee Prep: site was prepped using aseptic technique, ethochloride spray was applied and injection warnings given Injected: in the joint Approach Used: anterolateral Procedure: The patient tolerated the procedure well Coding 66879 - Glenohumeral/Tronchanteric Bursa/Intraarticular Procedure code (CPT) selection complete Assessment & Plan Assessment & Plan (1) Bilateral primary osteoarthritis of knee: Code(s): M17.0 - Bilateral primary osteoarthritis of knee Plan: The patient did consent to move forward with the Durolane injection in both knees, which was tolerated well.? I recommended rest, ice and elevation and OTC antiinflammatories prn for discomfort. If symptoms persist over the next 6-8 weeks, they will contact our office, otherwise, prn Patient Instructions: Scribed for Ana Maria Laurent PA-C, by Terry Solorzano biomedical repair technician, on 06/17/2023 at 3:30 PM EST. I, Ana Maria Laurent PA-C, have personally reviewed and agree with the information entered by the scribe. Coding Level of Care Code Procedure Only Diagnoses Bilateral primary osteoarthritis of knee M17.0 CPT Codes Coding - Joint 7: 90851 - Glenohumeral/Tronchanteric Bursa/Intraarticular ([id number])
[2023-06-17 15:25] VITALS: BMI 29.4
== END 2023-06-17 15:32 | disposition home or self-care (01) ==
PROVIDERS: PCP Internal Medicine; Visit Provider Physician Assistant
DX: M17.0 Bilateral primary osteoarthritis of knee (principal)
CPT/HCPCS: 20610

== ENCOUNTER → 2023-06-17 15:10 | Outpatient (BNVA) | payer OTHER, MEDICARE, SELFPAY | PROVIDERS: PCP Internal Medicine; Visit Provider Physician Assistant | DX: M17.0 Bilateral primary osteoarthritis of knee (principal) | CPT/HCPCS: 20610; J7318 ==

== ENCOUNTER 2024-10-27 09:20 | Outpatient (AMB) | payer OTHER, MEDICARE, SELFPAY ==
--- NOTE | 2024-10-27 09:23 | A.SPINEOV_ITS ---
Intake Visit Reasons: recurring pain after surgery Intake Note: Ms. Herring is here today c/o recurring pain after surgery. 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: No Allergies gabapentin Allergy (Severe, Verified 10/27/24 09:28) Anaphylaxis prednisone Allergy (Severe, Verified 10/27/24 09:28) Anaphylaxis cortisone Allergy (Intermediate, Verified 10/27/24 09:28) Swelling ondansetron [From Zofran] Allergy (Mild, Verified 10/27/24 09:28) Hypotension NSAIDS (Non-Steroidal Anti-Inflamma Adverse Reaction (Intermediate, Verified 10/27/24 09:28) affected renal function duloxetine [From Cymbalta] Adverse Reaction (Verified 10/27/24 09:28) Unknown pregabalin [From Lyrica] Adverse Reaction (Verified 10/27/24:28) Swelling Assessment & Plan Assessment & Plan (1) Lumbar radiculopathy: Code(s): M54.16 - Radiculopathy, lumbar region Category: Medical Plan Procedure: oblique lateral lumbar interbody fusion L5-S1 HPI: Marisa is a pleasant 59-year-old female who comes in today for a follow-up visit after having a L5-S1 TKLIF completed in January of 2023. To recap, she had some difficulties with postoperative leg pain after the surgery, but was doing much better by the time we concluded her 2nd postoperative visit. She was last seen in March of 2023. Now, in October of 2024 she returns to clinic to discuss recurrence of leg pain. She identifies an inciting incident of the fall around . She also had 2 subsequent falls thereafter around the new . She states that these falls began because she started mirabegron for her stress incontinence and it made her light headed/ dizzy. She was eventually able to adjust the dose to reduce her symptoms. Since her falls she has had low back pain and shooting pains down her right lower extremity. She reports the pain starts in her low back shoots into her right lateral hip, goes down the right geraldine-lateral thigh, over the anterior tibilais and terminates near the top of the right foot. She does associate some numbness/tingling/burning with this pain. She reports the pain is worse with increased activity and prolonged sitting. Since onset she has attempted a plethora of [id number] medications including Tylenol and pain gel/creams. She is unable to take NSAIDs due to her renal function. She is currently on Percoect 5-325mg q.6 and states this is only modestly relieving her pain. Allergies: No new allergies reported. Medications: Changes reported - taking Percocet 5-325mg q6h for pain. See [facility] Navigation list for other medications. Exam: Marisa has 4/5 strength in her bilateral lower extremities. Her upper extremity strength remains 5/5. She elicits pain to strength testing on the right side, primarily with iliopsoas testing. (+) right-sided straight leg raise. (-) King's, (-) clonus. Plan: Pleasant 59-year-old female who comes in today for a follow-up visit after having a L5-S1 TKLIF completed about 2 years ago. She reports a series of recent falls, and a new lumbar radiculopathy that developed as a result of this. It sounds like she may have a disc herniation above her fusion as a result of the falls. I would like to send her for a course of physical therapy then have her follow up for an MRI of the lumbar spine to evaluate this. Tyrone Samaniego MD,PhD [facility] Orders: Orders PT Evaluation and Treatment Today M54.16 - Radiculopathy, lumbar region Coding Level of Care Code Est Pt Level 3 (59452) Diagnoses Lumbar radiculopathy M54.16
--- OUTSIDE RECORDS SUMMARY | 2024-10-27 10:11 | XMS_ITS | Clinical Summary ---
Author Organization [facility] Address [address] [place] [address] Phone Care Team Providers Care Shift Mechanic Name Role Phone Fili Dow MD Primary Care Provider Allergies Active Allergy Reactions Criticality Noted Date Comments Atorvastatin 09/04/2021 Azelastine 09/04/2021 Clarithromycin 09/04/2021 Cortisone 11/13/2021 Swelling, rash All steroids Dexamethasone 09/04/2021 Other Reaction(s): Rash/Dermatitis Duloxetine Hcl 09/04/2021 Gabapentin Nausea And Vomiting 09/04/2021 Moxifloxacin 09/04/2021 Yeast infection Naproxen 03/30/2023 Ondansetron Dizziness High 01/29/2023 Gets very low blood pressure Prednisone Medium 01/29/2023 Pregabalin 03/30/2023 Ropinirole 01/29/2023 Medications calcium carbonate (OS-SONIA) 1,250 mg (500 mg elemental calcium) tablet Take 1 tablet (1,250 mg total) by mouth daily. Active fexofenadine (PRERNA) 180 mg tablet Take 1 Tablet by mouth daily. Active lubiprostone (AMITIZA) 24 mcg capsule Take 1 capsule (24 mcg total) by mouth 2 (two) times a day with meals. Active LYSINE ORAL Take by mouth. Active melatonin 10 mg tablet Take by mouth. Active verapamil ER (VERELAN PM) 300 mg 24 hr capsule Take 1 capsule (300 mg total) by mouth 1 (one) time each day. Active calcium carb/vit D3/minerals (CALCIUM-VITAMIN D ORAL) Take by mouth. Active LACTOBACILLUS ACIDOPHILUS ORAL Take by mouth daily. Active diclofenac (VOLTAREN) 1 % topical gel APPLY 2 GRAMS TOPICALLY TWO TIMES A DAY NEEDED FOR PAIN Active estradioL (ESTRACE) 0.01 % (0.1 mg/gram) vaginal cream Place 1 g vaginally at bedtime. Active triamcinolone acetonide 0.05 % ointment Apply 1 Applicator topically daily. Apply to affected area daily. Active oxyBUTYnin XL (DITROPAN-XL) 10 mg 24 hr tablet Take 1 tablet (10 mg total) by mouth 1 (one) time each day. Active ezetimibe (ZETIA) 10 mg tabletIndications :Mixed hyperlipidemia Take 1 tablet (10 mg total) by mouth 1 (one) time each day. 90 each 1 024 2024 Active gemfibroziL (LOPID) 600 mg tabletIndications :Mixed hyperlipidemia Take 1 tablet (600 mg total) by mouth 2 (two) times a day. 180 tablet 1 Active hydroCHLOROthiazi de (HYDRODIURIL) 25 mg tabletIndications :Essential hypertension Take 1 tablet (25 mg total) by mouth 1 (one) time each day. 90 each 1 024 2024 Active levothyroxine (SYNTHROID, LEVOTHROID) 125 mcg tabletIndications :Hypothyroidism, unspecified type Take 1 tablet (125 mcg total) by mouth 1 (one) time each day. 90 each 1 024 2024 Active metFORMIN (GLUCOPHAGE) 500 mg tabletIndications :Type II diabetes mellitus with neurological manifestations (CMS/HCC V24, CMS/HCC V28) Take 2 tablets (1,000 mg total) by mouth 2 (two) times a day with meals. 360 each 1 024 2024 Active ramipriL (ALTACE) 5 mg capsuleIndication s:Essential hypertension TAKE TWO CAPSULES BY MOUTH EVERY MORNING AND 1 CAPSULE BY MOUTH AT NOON. 180 each 1 Active tiZANidine (ZANAFLEX) 4 mg tablet TAKE ONE TABLET BY MOUTH EVERY 8 HOURS NEEDED FOR MUSCLE SPASMS 90 tablet 1 Active folic acid (FOLVITE) 1 mg tablet Take 1 tablet (1 mg total) by mouth 1 (one) time each day. 90 each 1 025 2024 Active LORazepam (ATIVAN) 1 mg tablet Take 1 Tablet by mouth at bedtime as needed for Anxiety for up to 28 days. 28 tablet 025 2024 Active oxyCODONE-acetami nophen (PERCOCET) 5-325 mg per tablet Take 1 tablet by mouth every 6 (six) hours if needed for severe pain. Max Daily Amount: 4 tablets 112 tablet Active omeprazole (PriLOSEC) [address] capsule TAKE ONE CAPSULE BY MOUTH EVERY DAY 90 capsule 1 Active sertraline (ZOLOFT) 100 mg tablet TAKE ONE TABLET BY MOUTH EVERY DAY 90 tablet 1 Active Trulicity 0.75 mg/0.5 mL pen injector injectionIndicati ons:Type II diabetes mellitus with neurological manifestations ([facility] V24, [facility] V28) INJECT 1 PEN (0.5 MLS) UNDER THE SKIN ONCE A WEEK (EVERY 7 DAYS) DIRECTED 6 mL 1 Active DULoxetine (CYMBALTA) [address] capsule Take 1 capsule (20 mg total) by mouth daily. 2024 Discontinued(T herapy completed) sertraline (ZOLOFT) 100 mg tablet Take 1 tablet (100 mg total) by mouth daily. 2024 Discontinued omeprazole (PriLOSEC) [address] capsule Take 1 capsule (40 mg total) by mouth 1 (one) time each day. 024 2024 Discontinued valACYclovir (VALTREX) 1 gram tablet Take 1 Tablet by mouth 3 times daily. As needed for outbreak 2024 Discontinued(R eorder) LORazepam (ATIVAN) 1 mg tablet Take 1 Tablet by mouth at bedtime as needed for Anxiety for up to 28 days. 28 tablet 025 2024 Discontinued(R eorder) oxyCODONE-acetami nophen (PERCOCET) 5-325 mg per tablet Take 1 tablet by mouth every 6 (six) hours if needed for severe pain for up to 28 days. Max Daily Amount: 4 tablets 112 tablet 025 2024 Discontinued dulaglutide (TRULICITY) 0.75 mg/0.5 mL pen injector injectionIndicati ons:Type II diabetes mellitus with neurological manifestations (CMS/HCC V24, CMS/HCC V28) Inject 0.5 mL (0.75 mg total) under the skin 1 (one) time per week. 2 mL 025 2024 Discontinued valACYclovir (VALTREX) 1 gram tablet Take 1 tablet (1,000 mg total) by mouth 3 (three) times a day for 7 days. 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 Eisenberg is a 58 yr. female presenting for their 2 week follow-up status post navigational bronchoscopy with dye marking, da Jose left upper lobe wedge resection, mediastinal lymphadenectomy for benign hamartoma which was performed at [facility] on 05/19/[address]Laki Fountain. ?? Patient does inform me that she is a former smoker who quit 5 years ago with a 21.5 pack year history and while her pulmonary nodule ended up being a benign hamartoma we will be referring her to the lung cancer screening program for yearly LDCT scans of the chest with her first scan due in April 2024. Tendinitis, de Quervain's 01/21/2022 Essential hypertension 09/04/2021 Fibromyalgia 09/04/2021 Gastric ulcer 09/04/2021 Generalized anxiety disorder 09/04/2021 Hyperlipidemia 09/04/2021 Overview (04/27/2024): Doesn't tolerate statins - worsening pain Hypothyroid 09/04/2021 Moderate major depression ([facility] V24, [facility] V28) 09/04/2021 Multilevel degenerative disc disease 09/04/2021 Overview (04/27/2024): Multiple surgeries - all levels Dr. Samaniego Status post L5-S1 lumbar fusion follow-up [facility] Osteoarthritis 09/04/2021 Overview (04/27/2024): Bilateral large joints Status post Durolane injections bilateral knees 06/17/2023 Peripheral neuropathy 09/04/2021 Overview (04/27/2024): ? DDD vs diabetes (hx CTS, bilateral feet) Recurrent cold sores 09/04/2021 Seasonal allergies 09/04/2021 Type II diabetes mellitus wi th neurological manifestations ([facility] V24, [facility] V28) 09/04/2021 Encounters Date Type Department Care Team Description 10/06/2024 1:00 PM EDT Office Visit [facility] [address] [place] [phone] Nellie Guardado NP History of cigarette smoking (Primary Dx); Iron deficiency anemia, unspecified iron deficiency anemia type; Cervical spondylosis without myelopathy; Lumbosacral spondylosis without myelopathy; Fibromyalgia; Anxiety and depression; Essential hypertension; Type II diabetes mellitus with neurological manifestations ([facility] V24, [facility] V28); Mixed hyperlipidemia; Hypothyroidism, unspecified type 08/18/2024 1:45 PM EST Office Visit [facility] Hematology Oncology [address] [place] [address] Esperanza Buckley PA Iron deficiency anemia due to chronic blood loss (Primary Dx); History of gastric ulcer 08/10/2024 Telephone Gastroenterology - [address] [facility] [address] [facility] [address] [place] [address] Gerry Rider MD from Last 3 Months Immunizations Name Administration Dates Next Due Influenza Quadravalent, MDCK , 0.5ml, preservative free (Flucelvax) 6mo and older 06/08/2023,06/05/2022 Influenza, Unspecified 07/11/2021 Moderna SARS-CoV-2 COVID-19, mRNA, LNP-S, preservative free 07/23/2021,11/09/2020,10/11/2020 Pneumococcal conjugate 13 va lent (Prevnar 13, PCV13) 2mo and older 09/16/2021 Pneumococcal conjugate 20 va lent (Prevnar 20, PCV 20) 2mo and older 02/01/2024 Tdap Tetanus diptheria acell ular pertussis (Boostrix; Adacel) 7yo and older 09/17/2016 Surgical History Surgery Date Site/Laterality Comments OTHER SURGICAL HISTORY 1989 PROCEDURE: NV TOTAL ABDOMINAL HYSTERECT W/WO RMVL TUBE OVARY; COMMENT: total except L ovary, Dr. Little BACK SURGERY 2016 PROCEDURE: HISTORICAL BACK SURGERY; COMMENT: Lumbar Dr. Bravo x 2, Dr Samaniego x1 OTHER SURGICAL HISTORY 2017 PROCEDURE: NV ARTHRD ANT INTERBODY MIN DSC CRV BELOW C2; COMMENT: Dr. Samaniego C6/7 OTHER SURGICAL HISTORY 05/2021 PROCEDURE: FLUOROSCOPIC PROCEDURE NEC; COMMENT: Dr. Samaniego, cervical spine TONSILLECTOMY 2003 PROCEDURE: HISTORICAL TONSILLECTOMY CARPAL TUNNEL RELEASE 2014 Bilateral PROCEDURE: NV NEUROPLASTY &/TRANSPOS MEDIAN NRV CARPAL TUNNE; COMMENT: Dr. Soto + trigger repair OTHER SURGICAL HISTORY 2008 Left PROCEDURE: NV ARTHRS KNEE DRLG OSTEOCHOND DISSECANS INT FIXJ; COMMENT: NEOS, recurrent, with sepsis OTHER SURGICAL HISTORY 05/19/2023 Left PROCEDURE: NV THORACOSCOPY W/THERA WEDGE RESEXN INITIAL UNILAT; COMMENT: CHAY wedge resection Medical History Medical History Date Comments Multilevel degenerative disc disease 09/04/2021 DX:Multilevel degenerative disc disease; COMMENT: Multiple surgeries - all levels Dr. Samaniego Fibromyalgia 09/04/2021 DX:Fibromyalgia Osteoarthritis 09/04/2021 DX:Osteoarthriti s; COMMENT: Bilateral large joints Peripheral neuropathy 09/04/2021 DX:Periphe ral neuropathy; COMMENT: ? DDD vs diabetes (hx CTS, bilateral feet) Type II diabetes mellitus wi th neurological manifestations (CMS/HCC V24, CMS/HCC V28) 09/04/2021 DX:Type II diabetes mellitus with neurological manifestations (HCC) Hypothyroid 09/04/2021 DX:Hypothyroid Gastric ulcer 09/04/2021 DX:Gastric ulcer Essential hypertension 09/04/2021 DX:Essent ial hypertension Moderate major depression (C MS/HCC V24, CMS/HCC V28) 09/04/2021 DX:Moderate major depression (HCC) Generalized anxiety disorder 09/04/2021 DX: Generalized anxiety disorder Seasonal allergies 09/04/2021 DX:Seasonal a llergies Recurrent cold sores 09/04/2021 DX:Recurren t cold sores Hyperlipidemia 09/04/2021 DX:Hyperlipidemi a; COMMENT: Doesn't tolerate statins - worsening pain Iron deficiency anemia 09/11/2021 DX:Iron d eficiency anemia GERD (gastroesophageal reflu x disease) DX:GERD (gastroesophageal re flux disease) Tendonitis 04/13/2024 DX:Tendonitis; C OMMENT: Left arm Family History Medical History Relation Name Comments Dementia Father 2015 Other: pancreas cyst Mother 2020 HTN, de pression, blindness Breast cancer Sister 1 2020 metastatic Other: mental health Sister 2 etoh (i n recovery), lung ca (smoker) No Known Problems Sister 3 Relation Name Status Comments Father 2016 Mother 2020 Sister 1 2020 Sister 2 Alive Sister 3 Alive Social History Tobacco Use Types Packs/Day Years Used Date Smoking Tobacco: Former Cigarettes 0.5 44.1 0 07/20/1976 - 08/20/2020 Smokeless Tobacco: Never Tobacco Cessation:Counseling Given: Not Answered Alcohol Use Standard Drinks/Week Comments Not Currently 0 (1 standard drink = 0.6 oz pur e alcohol) Housing Instability Answer Date Recorde d Are you worried that in the next 2 months you may not have stable housing? No 10/06/2024 Food Access & Nutrition Answer Date Rec orded Do you have access to a vari ety of food including fruits and vegetables? Yes 10/06/2024 Access to Healthcare Answer Date Record ed Within the last 3 months, kamlesh pressley many times did you visit the emergency department for your medical care? 0 10/06/2024 Health Literacy Answer Date Recorded How often do you need to hav e someone help you when you read instructions, pamphlets, or other written material from your doctor or pharmacy? Never 10/06/2024 Caregiver: How often do you need to have someone help you when you read instructions, pamphlets, or other written material from your doctor or pharmacy? Not on file 10/06/2024 Financial Risk Answer Date Recorded How hard is it for you to pa y for the very basics like food, housing, medical care, and air conditioning / heating? Not asked 10/06/2024 Transportation Answer Date Recorded Has the lack of transportati on kept you from meetings, work, or from getting things needed for daily living? No Has the lack of transportati on kept you from medical appointments or from getting medications? No 10/06/2024 Social Isolation Answer Date Recorded How often do you feel lonely or isolated from those around you? Not asked 10/06/2024 Food Risk Answer Date Recorded Within the past 12 months we worried whether our food would run out before we got money to buy more. Not asked 10/06/2024 Within the past 12 months th e food we bought just didn't last and we didn't have money to get more. Not asked 10/06/2024 Dependent Care Answer Date Recorded Do you need help finding or paying for care for your loved ones. For example, professor of early childhood education or elderly care for an older adult? No 10/06/2024 Education Answer Date Recorded Do you think completing more education or training, like finishing a GED, going to college, or learning a trade, would be helpful for you? No 10/06/2024 Employment and Income Answer Date Recor ded During the last four weeks, have you been actively looking for work? No 10/06/2024 Living Situation Answer Date Recorded What is your living situation? 0 10/06/2024 Comments No Sex and Gender Information Value Date Recorded Sex Assigned at Not on file Legal Sex Female 10:01 AM EST Gender Identity Not on file Sexual Orientation Not on file Obstetrics History Last Filed Vital Signs Vital Sign Reading Time Taken Comments Blood Pressure 128/64 10/06/2024 1:01 PM EDT Pulse 97 10/06/2024 1:01 PM EDT Temperature 37.2 ??C (98.9 ??F) 08/18/2024 1:08 PM ES T Respiratory Rate - - Oxygen Saturation 99% 08/18/2024 1:08 PM EST Inhaled Oxygen Concentration - - Weight 74.7 kg (164 lb 9.6 oz) 10/06/2024 1:01 P M EDT Height 157.5 cm (5' 2 ) 06/21/2024 1:11 PM EST Body Mass Index 30.11 06/21/2024 1:11 PM EST Plan of Treatment Upcoming Encounters Date Type Department Care Team (Late st Contact Info) Description 01/09/2025 9:45 AM EDT Office Visit [facility] [address] [place] [address] Nellie Guardado, MARILEE [address] [place] [address] 08/15/2025 1:30 PM EST Office Visit [facility] Hematology Oncology [address] [place] [phone] Esperanza Buckley PA [address] [place] [address] Health Maintenance Due Date Last Done Comments Cervical Cancer Screening: Pap Smear 1985 HIV Screening 06/29/2022 Medicare Annual Wellness Visit 06/29/2022 COVID-19 Vaccine ( season) 2024 08/05/2022, 07/23/2021, 11/09/2020, Additional history exists Diabetes: Annual Foot Exam 02/23/2025 02/24/2024 Diabetes: Blood Sugar Control Test (HGBA1C) 04/08/2025 10/06/2024, 03/16/2024, 03/16/2024, Additional history exists Lung Cancer Screening (Low Dose CT) 04/27/2025 04/27/2024, 04/27/2024 Depression Screening 10/06/2025 10/06/2024, 06/08/20 Diabetes: Annual Urine Albumin-Creatinine Ratio (uACR) 10/06/2025 10/06/2024, 06/08/2023 Diabetes: Annual GFR (Glomerular Filtration Rate) 10/06/2025 10/06/2024, 03/16/2024, 03/16/2024 Diabetes: Annual Retina Eye Exam 10/06/2025 10/06/2024, 06/18/2023 Hypertension/CHF/CAD Annual BMP Blood Test 10/06/2025 10/06/2024, 03/16/2024, 03/16/2024 Social Influencers of Health Screening 10/06/2025 10/06/2024 Breast Cancer Screening 01/14/2026 01/15/20 24, 01/15/2024, 12/03/2022, Additional history exists DTaP,Tdap,and Td Vaccines (2 - Td or Tdap) 09/17/2026 09/17/2016 Cholesterol Screening (Lipid Panel) 12/14/2028 12/15/2023, 12/15/2023, 11/17/2023 Colorectal Cancer Screening: Colonoscopy 05/15/2033 05/15/2023 RSV Immunization Adult Patients (1 - 1-dose 75+ series) 2039 Hepatitis C Screening Completed 06/05/2022 Pneumococcal Vaccine: 50+ Years Completed 02/01/2024, 09/16/2021 Pneumococcal Vaccine: Pediatrics (0 to 5 Years) and At-Risk Patients (6 to 64 Years) Completed 02/01/2024, 09/16/2021 Influenza Vaccine Completed 03/01/2024, , 06/05/2022, Additional history exists HIB Vaccines Aged Out No longer eligi ble based on patient's age to complete this topic HPV Vaccines Aged Out No longer eligi ble based on patient's age to complete this topic Hepatitis A Vaccines Aged Out No long er eligible based on patient's age to complete this topic Hepatitis B Vaccines Aged Out No long er eligible based on patient's age to complete this topic IPV Vaccines Aged Out No longer eligi ble based on patient's age to complete this topic MMR Vaccines Aged Out No longer eligi ble based on patient's age to complete this topic Meningococcal ACWY Vaccine Aged Out N o longer eligible based on patient's age to complete this topic Meningococcal B Vaccine Aged Out No l onger eligible based on patient's age to complete this topic RSV Immunization Patients Under 20 months Aged Out No longer eligible based on patient's age to complete this topic Varicella Vaccines Aged Out No longer eligible based on patient's age to complete this topic Zoster Vaccines Discontinued Procedures Procedure Name Priority Date/Time Associated Diagnosis Comments CBC WITH AUTO DIFFERENTIAL Routine 10/06/2024 1:59 PM EDT Iron deficiency anemia due to chronic blood loss CBC AND DIFFERENTIAL Routine 10/06/2024 1:59 PM EDT Iron deficiency anemia due to chronic blood loss IRON AND TIBC Routine 10/06/2024 1:59 PM EDT Iron deficiency anemia due to chronic blood loss FERRITIN Routine 10/06/2024 1:59 PM EDT Iron deficiency anemia due to chronic blood loss VITAMIN B12 AND FOLATE Routine 10/06/2024 1:59 PM EDT Iron deficiency anemia due to chronic blood loss HEMOGLOBIN A1C Routine 10/06/2024 1:59 PM EDT Type II diabetes mellitus with neurological manifestations (CMS/HCC V24, CMS/HCC V28) MICROALBUMIN CREATININE URINE RATIO Routine 10/06/2024 1:59 PM EDT Type II diabetes mellitus with neurological manifestations (CMS/HCC V24, CMS/HCC V28) COMPREHENSIVE METABOLIC PANEL Routine 10/06/2024 1:59 PM EDT Mixed hyperlipidemia ..MISCELLANEOUS REFERENCE LAB TEST 08/18/2024 CBC WITH AUTO DIFFERENTIAL Routine 08/16/2024 12:18 PM EST Iron deficiency anemia, unspecified IRON AND TIBC Routine 08/16/2024 12:18 PM EST Iron deficiency anemia, unspecified FERRITIN Routine 08/16/2024 12:18 PM EST Iron deficiency anemia, unspecified CBC AND DIFFERENTIAL Routine 08/16/2024 12:18 PM EST Iron deficiency anemia, unspecified CT LUNG SCREENING LOW DOSE Routine 04/27/2024 4:05 PM EDT Personal history of nicotine dependence HM DIABETES FOOT EXAM Routine 02/24/2024 HELENA SCREENING DIGITAL Routine 01/15/2024 8:02 AM EDT Encounter for screening mammogram for malignant neoplasm of breast LIPID PANEL Routine 12/15/2023 DIABETES EYE EXAM Routine 06/18/2023 DEPRESSION SCREENING Routine 06/08/2023 COLONOSCOPY Routine 05/15/2023 HEPATITIS C SCREENING Routine 06/05/2022 from Last 3 Months or Most Recently Relevant to Health Maintenance Results * Vitamin B12 and folate (10/06/2024 1:59 PM EDT) Pathologist [facility] Vitamin B-12 427 250 - 900 pcg/mL LAB CHEMISTRY METHOD 10/06/2024 5:58 PM EDT [facility] Folate 3.8 2.8 - 17.0 ng/ml LAB CHEMISTRY METHOD 10/06/2024 5:58 PM EDT [facility] Blood Venous blood specimen / Unknown Venipuncture / Unknown 10/06/2024 1:59 PM EDT 10/06/2024 1:59 PM EDT us Esperanza MERCADO LAB BLOOD ORDERABLES Final Resul t [facility] [address] [place] [address], * (ABNORMAL) CBC auto differential (10/06/2024 1:59 PM EDT) Only the most recent of2 resultswithin the time period is included. Pathologist [facility] WBC 8.3 4.8 - 10.8 K/mcL LAB HEMETOLOGY METHOD 10/06/2024 3:31 PM EDT [facility] RBC 4.40 3.80 - 4.80 M/mcL LAB HEMETOLOGY METHOD 10/06/2024 3:31 PM EDT [facility] Hemoglobin 13.5 11.5 - 16.0 g/dL LAB HEMETOLOGY METHOD 10/06/2024 3:31 PM EDT [facility] Hematocrit 39.0 35.0 - 47.0 % LAB HEMETOLOGY METHOD 10/06[facility]2024 [facility] MCV 88.2 79.0 - 98.0 FL LAB HEMETOLOGY METHOD 10/06/2024 3:31 PM EDT [facility] MCH 30.5 27.0 - 32.0 pcg LAB HEMETOLOGY METHOD 10/06/2024 3:[facility] MCHC 34.6 32.0 - 37.0 g/dL LAB HEMETOLOGY METHOD 10/06/2024 3:[facility] RDW 13.3 11.0 - 15.0 % LAB HEMETOLOGY METHOD 10/06/2024 3:31 PM EDT [facility] Platelets 322 130 - 400 K/mcL LAB HEMETOLOGY METHOD 10/06/2024 3:[facility] MPV 11.0 7.0 - 11.0 FL LAB HEMETOLOGY METHOD 10/06/2024 3:[facility] NRBC 0.0 <1.0 % LAB HEMETOLOGY METHOD 10/06/2024 3:31 PM EDT [facility] NRBC Absolute 0.00 <0.10 K/mcL LAB HEMETOLOGY METHOD 10/06/2024 3:31 PM EDT [facility] Neutrophils Relative 63.7 % LAB HEMETOLOGY METHOD 10/06/2024 3:[facility] Lymphocytes Relative 25.2 % LAB HEMETOLOGY METHOD 10/06/2024 3:31 PM EDT [facility] Monocytes Relative 5.0 % LAB HEMETOLOGY METHOD 10/06/2024 3:31 PM EDT [facility] Eosinophils Relative 4.5 % LAB HEMETOLOGY METHOD 10/06/2024 3:31 PM EDT [facility] Basophils Relative 0.8 % LAB HEMETOLOGY METHOD 10/06/2024 3:31 PM EDT [facility] Immature Granulocytes Relative 0.8 % LAB HEMETOLOGY METHOD 10/06/2024 3:31 PM EDT [facility] Neutrophils Absolute 5.25 1.50 - 7.00 K/mcL LAB HEMETOLOGY METHOD 10/06/2024 3:31 PM EDT [facility] Lymphocytes Absolute 2.08 1.00 - 5.00 K/mcL LAB HEMETOLOGY METHOD 10/06/2024 3:31 PM EDT [facility] Monocytes Absolute 0.41 0.20 - 1.00 K/mcL LAB HEMETOLOGY METHOD 10/06/2024 3:31 PM EDT [facility] Eosinophils Absolute 0.37 0.00 - 0.50 K/mcL LAB HEMETOLOGY METHOD 10/06/2024 3:31 PM EDT [facility] Basophils Absolute 0.07 0.00 - 0.20 K/mcL LAB HEMETOLOGY METHOD 10/06/2024 3:31 PM EDT [facility] Immature Granulocytes Absolute 0.07(H) 0.00 - 0.03 K/mcL LAB HEMETOLOGY METHOD 10/06/2024 3:31 PM EDT [facility] Blood Venous blood specimen / Unknown Venipuncture / Unknown 10/06/2024 1:59 PM EDT 10/06/2024 1:59 PM EDT us Esperanza MERCADO LAB BLOOD ORDERABLES Final Resul t [facility] [address] [place] [address], [place] [phone] * (ABNORMAL) Iron and TIBC (10/06/2024 1:59 PM EDT) Only the most recent of2 resultswithin the time period is included. Iron 75 40 - 150 mcg/dL LAB CHEMISTRY METHOD 10/06/2024 5:58 PM EDT [facility] TIBC 462(H) 250 - 450 mcg/dL LAB CHEMISTRY METHOD 10/06/2024 5:58 PM EDT [facility] Iron Saturation 16 15 - 50 % LAB CHEMISTRY METHOD 10/06/2024 5:58 PM EDT [facility] Blood Venous blood specimen / Unknown Venipuncture / Unknown 10/06/2024 1:59 PM EDT 10/06/2024 1:59 PM EDT Esperanza MERCADO LAB BLOOD ORDERABLES Final Resul t [facility] [address] [place] [address], [place] [phone] * Microalbumin creatinine urine ratio (10/06/2024 1:59 PM EDT) Creatinine, Urine 47.0 mg/dL LAB CHEMISTRY METHOD 10/06/2024 4:53 PM EDT [facility] Microalb, Ur 5.5 0.0 - 29.0 mg/L LAB CHEMISTRY METHOD 10/06/2024 4:53 PM EDT [facility] Microalb/Creat Ratio 12 <30 mg/g creat LAB CHEMISTRY METHOD 10/06/2024 4:53 PM EDT [facility] Urine Urine specimen obtained by clean catch procedure / Unknown Non-blood Collection / Unknown 10/06/2024 1:59 PM EDT 10/06/2024 1:59 PM EDT Nellie Guardado TELECOM SPECIALIST LAB URINE ORDERABLES Final Resul t Performing Organization Address City/[facility]/ZIP Co de Phone Number [facility] [address] [place] [address], [place] [phone] * (ABNORMAL) Hemoglobin A1c (10/06/2024 1:59 PM EDT) Hemoglobin A1C 7.2(H) <6.5 % LAB CHEMISTRY METHOD 10/06/2024 6:53 PM EDT [facility] Mean Bld Glu Estim. 160 mg/dL LAB CHEMISTRY METHOD 10/06/2024 6:53 PM EDT [facility] Blood Venous blood specimen / Unknown Venipuncture / Unknown 10/06/2024 1:59 PM EDT 10/06/2024 1:59 PM EDT Nellie Guardado NP LAB BLOOD ORDERABLES Final Resul t Performing Organization Address [facility] Co de Phone Number [facility] [address] [place] [address], [place] [phone] * Ferritin (10/06/2024 1:59 PM EDT) Only the most recent of2 resultswithin the time period is included. Pathologist [facility] Ferritin 31 8 - 252 ng/mL LAB CHEMISTRY METHOD 10/06/2024 5:58 PM EDT [facility] Blood Venous blood specimen / Unknown Venipuncture / Unknown 10/06/2024 1:59 PM EDT 10/06/2024 1:59 PM EDT Esperanza MERCADO LAB BLOOD ORDERABLES Final Resul t Performing Organization Address City/[facility]/ZIP Co de Phone Number [facility] [address] [place] [address], [place] [phone] * (ABNORMAL) Comprehensive metabolic panel (10/06/2024 1:59 PM EDT) Sodium 132(L) 133 - 145 mmol/L LAB CHEMISTRY METHOD 10/06/2024 5:58 PM [facility] Potassium 4.2 3.5 - 5.5 mmol/L LAB CHEMISTRY METHOD 10/06/2024 5:58 PM [facility] Chloride 99 96 - 110 mmol/L LAB CHEMISTRY METHOD 10/06/2024 5:58 PM [facility] CO2 25 21 - 32 mmol/L LAB CHEMISTRY METHOD 10/06/2024 5:58 PM [facility] Anion Gap 8 3 - 11 LAB CHEMISTRY METHOD 10/06/2024 5:58 PM [facility] Glucose 108(H) 70 - 100 mg/dL LAB CHEMISTRY METHOD 10/06/2024 5:58 PM [facility] BUN 24 5 - 25 mg/dL LAB CHEMISTRY METHOD 10/06/2024 5:58 PM [facility] Creatinine 1.13(H) 0.50 - 1.10 mg/dL LAB CHEMISTRY METHOD 10/06/2024 5:58 PM [facility] eGFR 56(L) >=60 mL/min/1. 73m2 LAB CHEMISTRY METHOD 10/06/2024 5:58 PM [facility] Comment:Calculation based on the??Chronic Kidney Disease Epidemiology Collaboration (CKD-EPI) equation refit??without adjustment for race. BUN/Creatinine Ratio 21.2 LAB CHEMISTRY METHOD 10/06/2024 5:58 PM [facility] Calcium 10.7(H) 8.5 - 10.5 mg/dL LAB CHEMISTRY METHOD 10/06/2024 5:58 PM [facility] AST (SGOT) 22 10 - 42 unit/L LAB CHEMISTRY METHOD 10/06/2024 5:58 PM [facility] ALT (SGPT) 28 10 - 60 unit/L LAB CHEMISTRY METHOD 10/06/2024 5:58 PM EDT [facility] Alkaline Phosphatase 72 42 - 121 unit/L LAB CHEMISTRY METHOD 10/06/2024 5:58 PM EDT [facility] Total Protein 7.9 6.0 - 8.0 g/dL LAB CHEMISTRY METHOD 10/06/2024 5:58 PM EDT [facility] Albumin 4.5 3.2 - 5.0 g/dL LAB CHEMISTRY METHOD 10/06/2024 5:58 PM EDT [facility] Total Bilirubin 0.2 0.0 - 1.4 mg/dL LAB CHEMISTRY METHOD 10/06/2024 5:58 PM EDT [facility] Blood Venous blood specimen / Unknown Venipuncture / Unknown 10/06/2024 1:59 PM EDT 10/06/2024 1:59 PM EDT Nellie Guardado NP LAB BLOOD ORDERABLES Final Resul t [facility] [address] [place] [address], * Miscellaneous reference lab test (08/18/2024) us Provider Onbase MD LAB BLOOD ORDERABLES Final Re sult * CT LUNG SCREENING LOW DOSE (04/27/2024 4:05 PM EDT) Anatomical Region Laterality Modality Computed Tomogra phy 04/27/2024 2:07 PM EDT Narrative 04/27/2024 4:05 PM EDT [facility] Diagnostic Imaging Department [address] [place] [address] Patient: ??MARISA EISENBERG ?/Age/Sex: 1965 - 59 - F Unit#: ??[id number] ? Location/Status: ??SPDICATLS/REG CLI ? Mnemonic/Ordering Site: ??CTLUNGLD/SPCT Ordering Physician: ??NUSRAT FOUNTAIN MD CT Lung Screening Low Dose - 04/27/24 - 1412 Report Status:Signed PROCEDURE: Chest CT INDICATION: Lung cancer screening, former smoker, 40 vacuo smoking history TECHNIQUE: Chest CT without contrast. Multi planar reformats were created and interpreted. The examination was performed utilizing dose reduction techniques. COMPARISON: ??Baseline screening chest CT FINDINGS: LUNGS/PLEURA: Central airways are patent. ??Left upper lobe suture line with adjacent scarring. ??2 mm right upper lobe nodule. ??2 mm left lower lobe nodule. No suspicious pulmonary nodules. MEDIASTINUM: Thyroid gland is unremarkable. No mediastinal or hilar lymphadenopathy. Cardiac chambers are normal in size. No pericardial effusion. Esophagus is normal. ??Mild coronary artery calcifications. CHEST WALL: No axillary lymphadenopathy or superficial hematoma. UPPER ABDOMEN:Hepatic steatosis. BONES: Cervical fusion hardware noted. ??Dextroconvex thoracic scoliosis. IMPRESSION: No suspicious pulmonary nodules. ??Lung RADS 2-benign. ??Recommend continued screening with low-dose chest CT in 12 months. Dictating Physician: ??DAVID MCCORMICK MD Electronically Signed by: ??DAVID MCCORMICK MD Dic Date/Time: ??04/27/24 1543 Sign date/Time: ??04/27/24 1605 Procedure Note David Mccormick MD - 05/17/2024 [facility] Diagnostic Imaging Department [address] [place] [id number] Patient: MARISA EISENBERG /Age/Sex: 1965 - 59 - F Unit#: [id number] Location/Status: SPDICATLS/REG CLI Mnemonic/[facility]ing [facility] Order[place] Physician: NUSRAT FOUNTAIN MD CT Lung Screening Low Dose - 04/27/24 - 1412 Report Status:Signed PROCEDURE: Chest CT INDICATION: Lung cancer screening, former smoker, 40 vacuo smokinghistory TECHNIQUE: Chest CT without contrast. Multi planar reformats were createdand interpreted. The examination was performed utilizing dose reductiontechniques. COMPARISON: Baseline screening chest CT FINDINGS: LUNGS/PLEURA: Central airways are patent. Left upper lobe suture linewith adjacent scarring. 2 mm right upper lobe nodule. 2 mm left lower lobenodule. No suspicious pulmonary nodules. MEDIASTINUM: Thyroid gland is unremarkable. No mediastinal or hilar lymphadenopathy. Cardiac chambers are normal in size. No pericardialeffusion. Esophagus is normal. Mild coronary artery calcifications. CHEST WALL: No axillary lymphadenopathy or superficial hematoma. UPPER ABDOMEN:Hepatic steatosis. BONES: Cervical fusion hardware noted. Dextroconvex thoracic scoliosis. IMPRESSION: No suspicious pulmonary nodules. Lung RADS 2-benign. Recommendcontinued screening with low-dose chest CT in 12 months. Dictating Physician: DAVID MCCORMICK MD Electronically Signed by: DAVID MCCORMICK MD Dic Date/Time: 04/27/24 5371 Sign date/Time: 04/27/24 5470 us Nusrat Fountain MD IMG CT PROCEDURES Final Result * Diabetes Foot Exam (02/24/2024) Diabetes: Annual Foot Exam abstracted us Historical Provider HEALTH MAINTENANCE Final Result * [place] SCREENING DIGITAL (01/15/2024 8:02 AM EDT) Anatomical Region Laterality Modality Mammography 01/15/2024 7:00 AM EDT Narrative 01/15/2024 8:02 AM EDT [facility] Diagnostic Imaging Department [address] [place] [address] Patient: ??MARISA EISENBERG ?/Age/Sex: 1965 - 58 - F Unit#: ??[id number] ? Location/Status: ??SPDIMAM/REG CLI ? Mnemonic/Ordering Site: ??DIGSC/SPMAM Ordering Physician: ??FILI DOW MD [place] Screening Digital - 01/15/24721 Report Status:Signed EXAM: [place] Screening Digital EXAM DATE AND TIME: 01/15/2024 7:24 AM HISTORY: ??Screening. Sister had breast carcinoma at age 59. COMPARISON: ??12/03/22, 11/30/21, 08/16/20 TECHNIQUE: Bilateral digital breast tomosynthesis was performed in the CC and MLO projections. Computer aided detection with iCAD ProFound AI 3D 3.1 was employed. TISSUE DENSITY: b. There are scattered areas of fibroglandular density. FINDINGS: No suspicious masses, grouped microcalcifications, or areas of architectural distortion are seen. Scattered microcalcifications are again seen. The skin and vascularity are unremarkable. IMPRESSION: Stable mammographic appearance of the breasts. ??No evidence of malignancy is seen. A negative mammogram in the presence of a clinically suspicious palpable abnormality does not preclude the possibility of malignancy or alter the indications for biopsy. BI-RADS: ??Category 2: Benign RECOMMENDATION(S): 1: Routine screening mammogram BILATERAL in 1 year. Dictating Physician: ??TERESA CHRISTIE MD Electronically Signed by: ??TERESA CHRISTIE MD Dic Date/Time: ??01/15/24800 Sign date/Time: ??01/15/24801 Procedure Note Teresa Christie MD - 05/04/2024 [facility] Diagnostic Imaging Department [address] [place] [address] Patient: MARISA EISENBERG [place] /Age/Sex: 1965 - 58 - F Unit#: [id number] Location/Status: [facility]/REG CLI Mnemonic/Ordering Site: [facility] Ordering Physician: FILI DOW MD [facility] Screening Digital - 01/15/24721 Report Status:Signed EXAM: [facility] Screening Digital EXAM DATE AND TIME: 01/15/2024 7:24 AM HISTORY: Screening. Sister had breast carcinoma at age 59. COMPARISON: 12/03/22, 11/30/21, 08/16/20 TECHNIQUE: Bilateral digital breast tomosynthesis was performed in the CCand MLO projections. Computer aided detection with iCAD Nutshell[employer] 3D 3.1was employed. TISSUE DENSITY: b. There are scattered areas of fibroglandular density. FINDINGS: No suspicious masses, grouped microcalcifications, or areas ofarchitectural distortion are seen. Scattered microcalcifications are again seen. Theskin and vascularity are unremarkable. IMPRESSION: Stable mammographic appearance of the breasts. No evidence of malignancyis seen. A negative mammogram in the presence of a clinically suspicious palpable abnormality does not preclude the possibility of malignancy or alter the indications for biopsy. BI-RADS: Category 2: Benign RECOMMENDATION(S): 1: Routine screening mammogram BILATERAL in 1 year. Dictating Physician: TERESA CHRISTIE MD Electronically Signed by: TERESA CHRISTIE MD Dic Date/Time: 01/15/24 08 Sign date/Time: 01/15/24 0802 Fili Dow MD IMG BI PROCEDURES Final Result * Lipid panel (12/15/2023) [facility] LDL/HDL Ratio 4 0 - 4 Triglycerides 130 0 - 150 mg/dL Cholesterol 174 0 - 200 mg/dL HDL 49 >=40 mg/dL LDL Cholesterol 99 0 - 100 mg/dL Blood Venous blood specimen / Unknown [facility] Provider LAB BLOOD ORDERABLES Irma l Result * Diabetes Eye Exam (06/18/2023) [facility] Diabetes: Annual Retina Eye Exam abstracted [facility] Provider HEALTH MAINTENANCE Final Result * Depression Screening (06/08/2023) [facility] Depression Screening abstracted [facility] Provider HEALTH MAINTENANCE Final Result * Colonoscopy (05/15/2023) [facility] Colonoscopy no interpreta tion,abstr acted Anatomical Region Laterality Modality Other Historical Provider HEALTH MAINTENANCE Final Result * Hepatitis C Screening (06/05/2022) Hepatitis C Screening abstracted Historical Provider HEALTH MAINTENANCE Final Result from Last 3 Months or Most Recently Relevant to Health Maintenance Insurance [facility]ICARE 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
--- OUTSIDE RECORDS SUMMARY | 2024-10-27 10:11 | XMS_ITS ---
Author Organization [facility] Address [address] [place] [address] Care Team Providers Care Clamp Forklift Operator Name Role Phone Delfin Dow Primary Care Provider ROXIE Sheikh Unavailable [phone] Allergies Allergen (clinical drug ingredient) Drug/Non Drug Allergy documented on EMR Reaction Allergy Type Onset Date Status Non-steroidal anti-inflammatory agent (FN) NSADS (uncoded) Unknown Allergy Active moxifloxacin Avelox Unknown Drug Allergy Acti ve Biaxin Unknown Drug Allergy Active duloxetine Cymbalta Unknown Drug Allergy Active atorvastatin Lipitor Unknown Drug Allergy Acti ve pregabalin Lyrica Unknown Drug Allergy Active Zofran Unknown Drug Allergy Active Decadron Unknown Drug Allergy Active cortisone Cortisone Unknown Drug Allergy Active gabapentin Gabapentin Unknown Drug Allergy Activ e prednisone Prednisone Unknown Drug Allergy Activ e azelastine Azelastine Unknown Drug Allergy Activ e moxifloxacin Moxifloxacin Unknown Drug Allergy A ctive naproxen Naproxen Unknown Drug Allergy Active ropinirole Ropinirole Unknown Drug Allergy Activ e REASON FOR VISIT diabetic check Medications Medication SIG (Take, Route, Frequency, Duration) Notes Start Date End Date Status hydroCHLOROthiazide 25 MG 1 tablet in th e morning Orally Once a day Active Diclofenac Sodium 1 % as directed Externally Active Sertraline HCl 100 MG 1 tablet Orally On ce a day Active Lubiprostone 24 MCG 1 capsule with food and water Orally Twice a day Active Verapamil HCl ER 300 MG 1 capsule Orally Once a day Active Ramipril 5 MG 1 capsule Orally Onc e a day Active Triamcinolone Acetonide 0.5 % 1 applicat ion Externally Twice a day Active Probiotic Active Fexofenadine HCl 180 MG 1 tablet Swallow whole with water; do not take with fruit juices. Orally Once a day Active Famotidine 20 MG 1 tablet at bedtime as needed Orally Once a day Active oxyBUTYnin Chloride 5 MG 1 tablet Orally Once a day Active Lysine Active Calcium + D Active [place] 3 1000 MG 2 capsule Orally onc e a day Active Melatonin 10 MG as directed Orally Active Omeprazole 40 MG 1 capsule 30 minutes before morning meal Orally Once a day Active metFORMIN HCl 500 MG 1 tablet with a rosi l Orally Once a day Active Estradiol 0.1 MG/GM as directed Vaginal Active LORazepam 1 MG 1 tablet at bedtime as needed Orally Once a day Active oxyCODONE-Acetaminophen 5-32 5 MG 1 tablet as needed Orally every 6 hrs Active Levoxyl 125 MCG 1 tablet in the morning on an empty stomach Orally Once a day Active Gemfibrozil 600 MG 1 tablet 30 minutes before morning and evening meals Orally Twice a day Active Ezetimibe 10 MG 1 tablet Orally Once a day Active Valtrex 1 GM 1 tablet Orally Once a day Active Phenazopyridine HCl 100 MG 1 tablet Oral ly Three times a day Active tiZANidine HCl 4 MG 1 tablet at bedtime as needed Orally Once a day Active Problems Problem Type SNOMED Code ICD Code Onset Dates Problem Status W/U Status Risk Notes Problem 873595945 Type 2 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 (E11.49) Active confirmed Problem 95622147 Other polyneuropathy (G62.89) Active confirmed Vital Signs Temperature 97.0 degrees Fahrenheit 02/24/20 24 Blood pressure systolic 124 mm Hg 02/24/20 24 Blood pressure diastolic 58 mm Hg 024 Heart Rate 76 /min 02/24/2024 Respiratory Rate 20 /min 02/24/2024 Height 5ft 2.5in in 02/24/2024 Weight 163.7 lbs 02/24/2024 BMI 29.46 kg/m2 02/24/2024 Encounters Encounter Location Date Provider Diagnosis [facility] [address] [facility] [address] [place] [address] 02/24/2024 ROXIE MOSQUERA Type 2 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 E11.49 ; Other polyneuropathy G62.89 and Ingrown toenail L60.0 Assessments Encounter Date Diagnosis (ICD Code) Assessment Notes Treatment Notes Treatment Clinical Notes Section Notes 02/24/2024 Type 2 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 (ICD-10 - E11.49) This is an outpatient visit for evaluation and management of a new patient, which required appropriate review of pertinent medical history, review of any previous imaging, review of all previous records, and examination and decision-making. Time was 30 minutes spent in review of all these facets including face to face discussion with the patient regarding my findings and in discussion of a current and future treatment plan. Discussed with patient regarding proper glucose control, exercise, and diet. Explained to patient proper shoe gear, and importance of daily foot checks. I reviewed neuropathy and why it occurs in diabetics. I educated the patient on proper blood sugar control and the importance of an HgBA1c of less than 7.0%. I reviewed the signs and symptoms of neuropathy with the patient. I encouraged the patient to continue to use cream and deodorant on her feet. She can also use CBD cream as needed for any joint pain. I recommended she return for an annual diabetic foot exam. 02/24/2024 Other polyneuropathy (ICD-10 - G62.89) We discussed her numbness in her feet is largely due to her previous spinal issues and spinal surgeries. She has some residual weakness on the left side. We discussed this is permanent. 02/24/2024 Ingrown toenail (ICD-10 - L60.0) I explained to the patient how ingrown toenails form: genetics, improper shoes, trauma, fungus. I reviewed with the patient proper nail care and how to conservatively treat ingrown toenails by cutting the nail straight across, massage the skin away from the edges of the nail,and to soak the feet daily. I explained that the ingrown toenail starts at the root and this is what needs to be removed to make the toenail grow back straight. I reviewed nail avulsions with the patient and also phenol/surgical matrixectomies. The patient is not having pain currently and did not want to have the procedure done today. I briefly reviewed the post-procedure course if she did choose to have the procedure done. Plan Of Treatment Treatment Notes Assessment Notes Type 2 diabetes mellitus wit h other diabetic neurological complication This is an outpatient visit for evaluation and management of a new patient, which required appropriate review of pertinent medical history, review of any previous imaging, review of all previous records, and examination and decision-making. Time was 30 minutes spent in review of all these facets including face to face discussion with the patient regarding my findings and in discussion of a current and future treatment plan. Discussed with patient regarding proper glucose control, exercise, and diet. Explained to patient proper shoe gear, and importance of daily foot checks. I reviewed neuropathy and why it occurs in diabetics. I educated the patient on proper blood sugar control and the importance of an HgBA1c of less than 7.0%. I reviewed the signs and symptoms of neuropathy with the patient. I encouraged the patient to continue to use cream and deodorant on her feet. She can also use CBD cream as needed for any joint pain. I recommended she return for an annual diabetic foot exam. Other polyneuropathy We discussed her nu mbness in her feet is largely due to her previous spinal issues and spinal surgeries. She has some residual weakness on the left side. We discussed this is permanent. Ingrown toenail I explained to the p atient how ingrown toenails form: genetics, improper shoes, trauma, fungus. I reviewed with the patient proper nail care and how to conservatively treat ingrown toenails by cutting the nail straight across, massage the skin away from the edges of the nail,and to soak the feet daily. I explained that the ingrown toenail starts at the root and this is what needs to be removed to make the toenail grow back straight. I reviewed nail avulsions with the patient and also phenol/surgical matrixectomies. The patient is not having pain currently and did not want to have the procedure done today. I briefly reviewed the post-procedure course if she did choose to have the procedure done. Next Appt Details Follow Up: 1 Year, Reason: Progress Notes * Bri HERRINGdsutinhDOB: 4 (58 yo F)Acc No.[id number]:02/24/2024 Consult note Patient:?Marisa HERRING Provider:?Roxie Mosquera DPM :1965???Age:58 Y???Sex:Female D ate:02/24/2024 Phone: Address:[address] [place] [id number] Pcp:Delfin Dow Subjective: * Chief Complaints: * ???Diabetic check * HPI: ???Constitutional:? This 58 y/o female presents to my office accompanied by her for a diabetic foot evaluation. She has never seen a brownfield redevelopment site manager. She has an extensive history of lower back issues involving multiple surgeries. She has occasional nerve pain and numbness in her feet. She also has some residual left leg weakness following her spinal surgeries. She states she has a history of ingrown toenails. She gets a pedicure every few months which seems to help with this issue. She states all her toenails are curved. She has a family history of ingrown toenails. She uses deodorant and cream on her feet. She uses the deodorant due to excessively sweaty feet and this seems to help. She notes that her skin has been more dry since the diabetes diagnosis. She has no other foot complaints this visit. Allergies and medical history reviewed. * ROS:?GENERAL: Pt denies nausea, fever, vomiting, chills, or shortness of breath. Pt in NAD. ALLERGY: patient denies any new allergy HEME/ONC: patient denies any bleeding or clotting disorders CARDIOLOGY: pt denies chest pain, palpitations LUNGS: pt denies shortness of breath ABDOMEN: patient denies any bloating, abdominal pain, or swelling MUSCULOSKELETAL: See HPI, she has joint pain, wrist pain, and back pain SKIN: see HPI, otherwise no lesions, rash or itching NEURO: See hpi, otherwise no persistent headache, weakness or numbness PSYCH: patient denies any current anxiety or depression The remainder of the review of systems is noncontributory. * Medical History:? * Surgical History:?fluoroscop ic procedure NEC, cervical spine ack surgery 2017tonsillectomy 2004PR ARTHRD ANT INTERBODY MIN DSC CRV BELOW C2 2018PR ARTHRS KNEE DRLG OSTEOCHOND DISSECANS INT FIXJ NEOS, RECURRENT WITH SEPSIS, LEFT 2009PR NEUROPLASTY & TRANSPOS MEDIAN NRV CARPAL TUNNEL, BILATERAL 2015PR THORACOSCOPY W/THERA WEDGE RESEXN INITIAL UNILAT, LEFT- CHAY WEDGE RESECTION 3PR TOTAL ABDOMINAL HYSTERECT W/WO RMVL TUBE OVARY 1989 * Hospitalization/Major Diagno stic Procedure:?C-Diff Back Surgery by * Family History:?Siblings: Si ster-Lung cancerSister- Breast cancerSister-Skin Cancer.? * Social History:?Covid 2 yrs ago and has had 2 covid vaccines. * Medications:?TakingOmega 3 1 000 MG Capsule 2 capsule Orally once a day Melatonin 10 MG Tablet as directed Orally Lysine Calcium + D Famotidine 20 MG Tablet 1 tablet at bedtime as needed Orally Once a day Probiotic Fexofenadine HCl 180 MG Tablet 1 tablet Swallow whole with water; do not take with fruit juices. Orally Once a day Ramipril 5 MG Capsule 1 capsule Orally Once a day Triamcinolone Acetonide 0.5 % Ointment 1 application Externally Twice a day hydroCHLOROthiazide 25 MG Tablet 1 tablet in the morning Orally Once a day Diclofenac Sodium 1 % Gel as directed Externally Lubiprostone 24 MCG Capsule 1 capsule with food and water Orally Twice a day Verapamil HCl ER 300 MG Capsule Extended Release 24 Hour 1 capsule Orally Once a day Sertraline HCl 100 MG Tablet 1 tablet Orally Once a day tiZANidine HCl 4 MG Tablet 1 tablet at bedtime as needed Orally Once a day Phenazopyridine HCl 100 MG Tablet 1 tablet Orally Three times a day Ezetimibe 10 MG Tablet 1 tablet Orally Once a day Valtrex 1 GM Tablet 1 tablet Orally Once a day Levoxyl 125 MCG Tablet 1 tablet in the morning on an empty stomach Orally Once a day Gemfibrozil 600 MG Tablet 1 tablet 30 minutes before morning and evening meals Orally Twice a day Omeprazole 40 MG Capsule Delayed Release 1 capsule 30 minutes before morning meal Orally Once a day metFORMIN HCl 500 MG Tablet 1 tablet with a meal Orally Once a day LORazepam 1 MG Tablet 1 tablet at bedtime as needed Orally Once a day oxyCODONE-Acetaminophen 5-325 MG Tablet 1 tablet as needed Orally every 6 hrs Estradiol 0.1 MG/GM Cream as directed Vaginal oxyBUTYnin Chloride 5 MG Tablet 1 tablet Orally Once a day Medication List reviewed and reconciled with the patientTaking [place] 3 1000 MG Capsule 2 capsule Orally once a day Taking Melatonin 10 MG Tablet as directed Orally Taking Lysine Taking Calcium + D Taking Famotidine 20 MG Tablet 1 tablet at bedtime as needed Orally Once a day Taking Probiotic Taking Fexofenadine HCl 180 MG Tablet 1 tablet Swallow whole with water; do not take with fruit juices. Orally Once a day Taking Ramipril 5 MG Capsule 1 capsule Orally Once a day Taking Triamcinolone Acetonide 0.5 % Ointment 1 application Externally Twice a day Taking hydroCHLOROthiazide 25 MG Tablet 1 tablet in the morning Orally Once a day Taking Diclofenac Sodium 1 % Gel as directed Externally Taking Lubiprostone 24 MCG Capsule 1 capsule with food and water Orally Twice a day Taking Verapamil HCl ER 300 MG Capsule Extended Release 24 Hour 1 capsule Orally Once a day Taking Sertraline HCl 100 MG Tablet 1 tablet Orally Once a day Taking tiZANidine HCl 4 MG Tablet 1 tablet at bedtime as needed Orally Once a day Taking Phenazopyridine HCl 100 MG Tablet 1 tablet Orally Three times a day Taking Ezetimibe 10 MG Tablet 1 tablet Orally Once a day Taking Valtrex 1 GM Tablet 1 tablet Orally Once a day Taking Levoxyl 125 MCG Tablet 1 tablet in the morning on an empty stomach Orally Once a day Taking Gemfibrozil 600 MG Tablet 1 tablet 30 minutes before morning and evening meals Orally Twice a day Taking Omeprazole 40 MG Capsule Delayed Release 1 capsule 30 minutes before morning meal Orally Once a day Taking metFORMIN HCl 500 MG Tablet 1 tablet with a meal Orally Once a day Taking LORazepam 1 MG Tablet 1 tablet at bedtime as needed Orally Once a day Taking oxyCODONE-Acetaminophen 5- 325 MG Tablet 1 tablet as needed Orally every 6 hrs Taking Estradiol 0.1 MG/GM Cream as directed Vaginal Taking oxyBUTYnin Chloride 5 MG Tablet 1 tablet Orally Once a day Medication List reviewed and reconciled with the patient * Allergies:?ZofranPrednisoneAveloxAzelastineBiaxinCortisoneCymbaltaDecadronGabape ntinLipitorLyricaMoxifloxacinNaproxenRopiniroleNSADS: Allergyno[Allergies Verified] Objective: * Vitals:?Wt:163.7lbs, Ht: 5ft 2.5in, BMI:29.46Index, HR:76/min, BP:124/58mm Hg, Temp:97.0F, RR:20/min, Ht-cm: 158.75, Wt-k.25 kg. * Examination: ???General Examination: ???GENERAL: Patient appears well nourished, with NAD. ?VASCULAR: Dorsalis pedis pulses are 2/4 bilaterally and Posterior tibial pulses are 2/4 bilaterally. Capillary filling time within normal limits the digits. No pallor on elevation or rubor on dependency. Positive hair growth. No varicosities. Denies rest pain or claudication pain. Each foot temperature is within normal limits. ?NEUROLOGICAL: Sharp/dull sensation diminished left, protective sensation intact 10/10 with 5.07 [place] bilaterally, vibratory sensation with tuning fork diminished to the tibial tuberosity bilaterally, position sense diminished left to the tibial tuberosity. ?ORTHOPEDIC: Good muscle strength 4+/5 of all flexors and extensors right 3+/5 left. Dorsi flexion of ankle , 0 degrees, plantar flexion WNL. No muscle atrophy. No pain on palpation or ROM of the joints. ?DERMATOLOGICAL: Mild incurvation of medial and lateral border of all ten toenails, no edema, erythema, or pain on palpation, no signs of infection. No masses, openings, or skin lesions noted. Normal skin temperature, normal skin turgor. ?BIOMECHANICS: STJ ROM WNL, MTJ ROM limited, 1st MPJ ROM limited. On weight-bearing, rectus foot type ?SHOES: sneakers. Therapeutic Interventions: Assessment: * Assessment: 1.?Type 2 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 - E11.49 (Primary)?2.?Other polyneuropathy - G62.89?3.?Ingrown toenail - L60.0? Plan: * Treatment: 2.?Other polyneuropathy? Notes: We discussed her numbness in her feet is largely due to her previous spinal issues and spinal surgeries. She has some residual weakness on the left side. We discussed this is permanent.?? 3.?Ingrown toenail? Notes: I explained to the patient how ingrown toenails form: genetics, improper shoes, trauma, fungus. I reviewed with the patient proper nail care and how to conservatively treat ingrown toenails by cutting the nail straight across, massage the skin away from the edges of the nail,and to soak the feet daily. I explained that the ingrown toenail starts at the root and this is what needs to be removed to make the toenail grow back straight. I reviewed nail avulsions with the patient and also phenol/surgical matrixectomies. The patient is not having pain currently and did not want to have the procedure done today. I briefly reviewed the post-procedure course if she did choose to have the procedure done. ?? * Procedure Codes:? * Follow Up:?1 Year * Billing Information: * Visit Code:? [id number] Office Visit, New Pt., Level 3. * Procedure Codes:? * Sign off status: Completed true * Provider:Taj Mosquera DPAllen Date:? 02/24/2024 Generated for Lyndsay helm/Frank/Marielos on:?10/27/2024 10:11 AM EDT History and Physical Notes * HPI (History of Present Illness) Category Sub-Category Detail Notes Category Not es Constitutional This 58 y/o f sariah presents to my office accompanied by her for a diabetic foot evaluation. She has never seen a brownfield redevelopment site manager. She has an extensive history of lower back issues involving multiple surgeries. She has occasional nerve pain and numbness in her feet. She also has some residual left leg weakness following her spinal surgeries. She states she has a history of ingrown toenails. She gets a pedicure every few months which seems to help with this issue. She states all her toenails are curved. She has a family history of ingrown toenails. She uses deodorant and cream on her feet. She uses the deodorant due to excessively sweaty feet and this seems to help. She notes that her skin has been more dry since the diabetes diagnosis. She has no other foot complaints this visit. Allergies and medical history reviewed. Examination Category Sub-Category Detail Notes Category Not es General Examination GENERAL: Patient appears well nourished, with NAD. VASCULAR: Dorsalis pedis pulses are 2/4 bilaterally and Posterior tibial pulses are 2/4 bilaterally. Capillary filling time within normal limits the digits. No pallor on elevation or rubor on dependency. Positive hair growth. No varicosities. Denies rest pain or claudication pain. Each foot temperature is within normal limits. NEUROLOGICAL: Sharp/dull sensation diminished left, protective sensation intact 10/10 with 5.07 [place] bilaterally, vibratory sensation with tuning fork diminished to the tibial tuberosity bilaterally, position sense diminished left to the tibial tuberosity. ORTHOPEDIC: Good muscle strength 4+/5 of all flexors and extensors right 3+/5 left. Dorsi flexion of ankle , 0 degrees, plantar flexion WNL. No muscle atrophy. No pain on palpation or ROM of the joints. DERMATOLOGICAL: Mild incurvation of medial and lateral border of all ten toenails, no edema, erythema, or pain on palpation, no signs of infection. No masses, openings, or skin lesions noted. Normal skin temperature, normal skin turgor. BIOMECHANICS: STJ ROM WNL, MTJ ROM limited, 1st MPJ ROM limited. On weight-bearing, rectus foot type SHOES: sneakers
--- OUTSIDE RECORDS SUMMARY | 2024-10-27 10:11 | XMS_ITS | Patient Health Record ---
Author Organization [facility] Address [address] [facility] [address] [place] [address] Care Team Providers Care Ammonia Technician Name Role Phone Dow, Delfin Primary Care Provider LAURE Sheikh Unavailable [phone] Allergies Allergen (clinical drug ingredient) Drug/Non Drug [...] ropinirole Ropinirole Unknown Drug Allergy Activ e Reason For Referral No Information Medications Medication SIG (Take, Route, Frequency, Duration) Notes Start Date End Date Status hydroCHLOROthiazide 25 MG 1 tablet in th e morning Orally Once a day Active Diclofenac Sodium 1 % as directed Externally Active Ramipril 5 MG 1 capsule Orally Onc e a day Active Triamcinolone Acetonide 0.5 % 1 applicat ion Externally Twice a day Active Probiotic Active Fexofenadine HCl 180 MG 1 tablet Swallow whole with water; do not take with fruit juices. Orally Once a day Active oxyBUTYnin Chloride 5 MG 1 tablet Orally Once a day Active Sertraline HCl 100 MG 1 tablet Orally On ce a day Active tiZANidine HCl 4 MG 1 tablet at bedtime as needed Orally Once a day Active Lubiprostone 24 MCG 1 capsule with food and water Orally Twice a day Active Verapamil HCl ER 300 MG 1 capsule Orally Once a day Active Omeprazole 40 MG 1 capsule 30 minutes before morning meal Orally Once a day Active metFORMIN HCl 500 MG 1 tablet with a rosi l Orally Once a day Active Levoxyl 125 MCG 1 tablet in [...] Oral ly Three times a day Active Famotidine 20 MG 1 tablet at bedtime as needed Orally Once a day Active Lysine Active Estradiol 0.1 MG/GM as directed Vaginal Active Calcium + D Active [place] 3 1000 MG 2 capsule Orally onc e a day Active LORazepam 1 MG 1 tablet at bedtime as needed Orally Once a day Active Melatonin 10 MG as directed Orally Active oxyCODONE-Acetaminophen 5-32 5 MG 1 tablet as needed Orally every 6 hrs Active Problems Problem Type SNOMED Code ICD Code Onset Dates Problem Status W/U Status Risk Notes Problem [id number] Type 2 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 (E11.49) Active confirmed Problem 24228110 Other polyneuropathy (G62.89) Active confirmed Vital Signs Heart Rate 76 /min 02/24/2024 Temperature 97.0 degrees Fahrenheit 02/24/2024 Respiratory Rate 20 /min 02/24/2024 Blood pressure diastolic 58 mm Hg 02/24/2024 Height 5ft 2.5in in 02/24/2024 Blood pressure systolic 124 mm Hg 02/24/2024 Weight 163.7 lbs 02/24/2024 BMI 29.46 kg/m2 02/24/2024 Encounters Encounter Location Date Provider Diagnosis [facility] [address] [facility] [address] [place] [address] 02/24/2024 LAURE PARKER Type 2 diabetes mellitus with other diabetic [...] have the procedure done. Plan Of Treatment No Information Insurance Providers Payer Name Payer Address Payer Phone Subscriber Number Group Number Insured Name Patient Relationship to Insured Coverage Start Date Coverage End Date R [address] [address] [place] [phone] [id number] Marisa Herring Self - patient is the insured [employer] [place] [address] [place] [phone] [id number] Marisa Herring Self - patient is the insured Medical (General) History Medical History History ICD Code hypertension fibromyalgia gastric ulcer anxiety gastroesophageal reflux disease (GERD) hyperlipidemia hypothyroid iron deficiency anemia depression multilevel degenerative disc disease osteoarthritis peripheral neuropathy recurrent cold sores seasonal allergies type 2 diabetes mellitus Surgical History Surgery Date(Month/Year) fluoroscopic procedure NEC, cervical spi ne 05/2021 back surgery 2017 tonsillectomy 2003 [place] ARTHRD ANT INTERBODY MIN DSC CRV BELO W C2 2018 [place] ARTHRS KNEE DRLG OSTEOCHO [place] DISSECANS INT FIXJ NEOS, RECURRENT WITH SEPSIS, LEFT 2008 [place] NEUROPLASTY & TRANSPOS MEDIAN NRV CAR PAL TUNNEL, BILATERAL 2014 [place] THORACOSCOPY W/THERA WEDG E RESEXN INITIAL UNILAT, LEFT- CHAY WEDGE RESECTION 05/19/2023 [place] TOTAL ABDOMINAL HYSTERECT W/WO RMVL T UBE OVARY 1989 Hospitalization History Reason Date(Month/Year) Back Surgery by C-Diff
--- OUTSIDE RECORDS SUMMARY | 2024-10-27 10:12 | XMS_ITS | Patient Health Record ---
Author Organization [facility] Address [address] [place] [address] Care Team Providers Care Electrician Underground Name Role Phone SHAWN FIELD, FILI Primary Care Provider Unavaila ble Allergies Allergen (clinical drug ingredient) Drug/Non Drug Allergy documented on EMR Reaction Allergy Type Onset Date Status moxifloxacin Avelox Unknown Drug Allergy Acti ve Biaxin Unknown Drug Allergy Active duloxetine Cymbalta Unknown Drug Allergy Active fluconazole Diflucan Unknown Drug Allergy Activ e gabapentin Gabapentin Unknown Drug Allergy Activ e atorvastatin Lipitor Unknown Drug Allergy Acti ve Contrast Allergy Pre Med Pack Unknown Drug Allergy Active Decadron Unknown Drug Allergy Active azelastine Azelastine Unknown Drug Allergy Activ e corticosteroid and/or corticosteroid derivative (FN) Corticosteroids Unknown Drug Allergy Active Reason For Referral No Information Medications Medication [...] e a day for 30 day(s) Active Social History Tobacco Use: Social History Observation Description Date Details (start date - stop date) Former Smoker NA - NA Tobacco Use/Smoking Question Answer Notes Are you a former smoker How long has it been since you last smoked? 1-5 years Problems Problem Type SNOMED Code ICD Code Onset Dates Problem Status W/U Status Risk Notes Problem Cervical spondylosis without myelopathy (409410557) Spondylosis without myelopathy or radiculopathy, cervical region (M47.812) Active confirmed Problem Lumbosacral spondylosis without myelopathy (88781065) Spondylosis without myelopathy or radiculopathy, lumbar region (M47.816) Active confirmed Plan Of Treatment No Information Insurance Providers Payer Name Payer Address Payer Phone Subscriber Number Group Number Insured Name Patient Relationship to Insured Coverage Start Date Coverage End Date UMR by [facility] [address] [address] [place], [place] [id number] Shimon Jarrett Spouse - patient is the spouse of the insured Medicare B PA [address] [facility] [phone] [id number] WESLEY EISENBERG Self - patient is the insured Medical (General) History Medical History History ICD Code TENDINITIS IRON DEFICEINCY ANEMIA MULTILEVEL DDD FIBROMYALGIA OSTEOARTHRITIS PERIPHERAL NEUROPATHY TYPE II DIABETES HYPOTHYROIDISM GASTRIC ULCER MODREATE MAJOR DEPRESSION GENERALIZED ANXIETY DISORDER SEASONAL ALLERGIES RECURRENT COLD SORES HYPERLIPIDEMIA HYPERTENSION OBESITY Surgical History Surgery Date(Month/Year)
--- OUTSIDE RECORDS SUMMARY | 2024-10-27 10:12 | XMS_ITS | Clinical Summary ---
Author Organization [facility] Address [address] [place] [address] Care Team Providers Care Change Management Specialist Name Role Phone Delfin Dow MD Primary Care Provider Allergies No known active allergies Medications Medication Sig Dispensed Refills Start Date End Date Status gabapentin (NEURONTIN) 300 MG capsule Take 1 capsule (300 mg total) by mouth 3 (three) times a day. 0 Active Fexofenadine HCl (PRERNA ALLERGY PO) Take by mouth. 0 Active metFORMIN (GLUCOPHAGE) tablet 1000 mg Take 1 tablet (1,000 mg total) by mouth 2 (two) times a day with meals. 0 Active oxyCODONE-acetaminoph en (PERCOCET) 5-325 MG per tablet Take 1 tablet by mouth every 4 (four) hours as needed for pain. 0 Active omeprazole (PriLOSEC) 20 MG capsule Take 1 capsule (20 mg total) by mouth daily. 0 Active lubiprostone (AMITIZA) 24 MCG capsule Take 1 capsule (24 mcg total) by mouth 2 (two) times a day with meals. 0 Active gemfibrozil (LOPID) 600 MG tablet Take 1 tablet (600 mg total) by mouth 2 (two) times a day before breakfast and dinner. 0 Active tiZANidine (ZANAFLEX) 4 MG tablet Take 1 tablet (4 mg total) by mouth every 6 (six) hours as needed. 0 Active ramipril (ALTACE) 5 MG capsule Take 1 capsule (5 mg total) by mouth daily. 0 Active Verapamil HCl ER 300 MG CP24 Take by mouth. 0 Active VALACYCLOVIR HCL PO Take by mouth. 0 A ctive levothyroxine (SYNTHROID) tablet 125 mcg Take 1 tablet (125 mcg total) by mouth every morning on an empty stomach. 0 Active sertraline (ZOLOFT) 100 MG tablet Take 1 tablet (100 mg total) by mouth daily. 0 Active LORazepam (ATIVAN) 1 MG tablet Take 1 tablet (1 mg total) by mouth every 6 (six) hours as needed. 0 Active DICLOFENAC SODIUM-MENTHOL CRM EX Apply topically. 0 Active calcium carbonate (OS-SONIA) 1250 (500 Ca) MG tablet Take 1 tablet (1,250 mg total) by mouth daily. 0 Active Probiotic Product (PROBIOTIC DAILY PO) Take by mouth. 0 Active LYSINE PO Take by mouth. 0 Active Melatonin 10 MG TABS Take by mouth. 0 Active ondansetron (ZOFRAN) 8 MG tablet Take 1 tablet (8 mg total) by mouth every 8 (eight) hours as needed for nausea. 0 Active DULoxetine (CYMBALTA) DR capsule 20 mg Take 1 capsule (20 mg total) by mouth daily. 0 Active oxybutynin (DITROPAN) 5 MG tablet Take 1 tablet (5 mg total) by mouth 2 (two) times a day. 0 Active estradiol (ESTRACE) 0.1 MG/GM vaginal cream Place 2 g vaginally daily. 0 Active Active Problems Problem Noted Date Diagnosed Date Iron deficiency anemia 08/18/2023 Social History Tobacco Use Types Packs/Day Years Used Date Smoking Tobacco: Former Cigarettes Smokeless Tobacco: Never Comments:Quit 5 years ago Alcohol Use Standard Drinks/Week Comments Not Asked 0 (1 standard drink = 0.6 oz pur e alcohol) 1-2 A YEAR Sex and Gender Information Value Date Recorded Sex Assigned at Female 07/07/2023 11:15 AM EST Gender Identity Not on file Sexual Orientation Not on file Job Start Date Occupation Industry Not on file Not on file Not on file Last Filed Vital Signs Vital Sign Reading Time Taken Comments Blood Pressure 141/65 02/17/2024 10:13 AM EDT Pulse 87 02/17/2024 10:13 AM EDT Temperature 36.8 ??C (98.2 ??F) 02/17/2024 10:13 AM E DT Respiratory Rate 18 09/08/2023 2:12 PM EST Oxygen Saturation 97% 02/17/2024 10:13 AM EDT Inhaled Oxygen Concentration - - Weight 74.4 kg (164 lb) 02/17/2024 10:13 AM EDT Height 158.8 cm (5' 2.5 ) 02/17/2024 10:13 AM ED T Body Mass Index 29.52 02/17/2024 10:13 AM EDT Plan of Treatment Health Maintenance Due Date Last Done Comments Hepatitis C Screening 1965 COVID-19 Vaccine (#1) 1964 Depression Screening 1976 Preventative Health Evaluation 1982 Cervical Cancer Screening (Pap Smear) 1985 Colon Cancer Screening (Colonoscopy) 2009 Breast Cancer Screening (Mammogram) 2014 Shingrix-Zoster Vaccine (1 o f 2) 2014 Influenza Vaccine (#1) 2024 3, 06/05/2022 DTap / Tdap / Td (2 - Td or Tdap) 09/17/2026 09/17/2016 RSV Adult > 60+ Yrs or (1 - 1-dose 75+ series) 2039 Pneumococcal Vaccine Aged Out 09/16/2021 No long er eligible based on patient's age to complete this topic Hepatitis B Vaccines Aged Out No long er eligible based on patient's age to complete this topic RSV Ped < 20 months Aged Out No longe r eligible based on patient's age to complete this topic Care Teams Change Management Specialist Relationship Specialty Start Date End Date Delfin Dow MD [address] [facility] [place] [address] PCP - General Internal Medicine 07/07/23
== END 2024-10-27 10:15 | disposition home or self-care (01) ==
LOC: HO.HNS 09:21
PROVIDERS: PCP Internal Medicine; Visit Provider Physician Assistant
DX: M54.16 Radiculopathy, lumbar region (principal)
CPT/HCPCS: 99213

== ENCOUNTER → 2024-10-27 09:20 | Outpatient (BNVA) | payer OTHER, MEDICARE, SELFPAY | PROVIDERS: PCP Internal Medicine; Visit Provider Physician Assistant ==

== ENCOUNTER 2024-10-29 17:11 | Outpatient (REF) | payer OTHER, MEDICARE, SELFPAY ==
--- NOTE | ~2024-10-29 | MR_ITS ---
EXAMINATION: MR LUMBAR SPINE WITHOUT CONTRAST CLINICAL INFORMATION: Radiculopathy . Fell 3 times in last 3 months. Previous surgery. COMPARISON: None available. TECHNIQUE: MRI of the lumbar spine was obtained using routine sequences without contrast. FINDINGS: There is normal lumbar lordosis. There are bilateral L5 and S1 pedicle screws with interconnecting rods for L5-S1 fusion. There is loss of L5-S1 and L2-3 disc height. Rest the disc heights and disc signal is preserved. The T12-L1 and L1-2 disc levels are unremarkable. At L2-3 disc level there is minimal bulge without spinal canal stenosis. There is mild bilateral narrowing of inferolateral recess of neural foramina. The facet joints are symmetric and normal. L3-4 and L4-5 disc level there is no significant disc bulge, herniation or spinal canal stenosis. The neural foramina patent bilaterally. At L5-S1 disc level there is disc hardware stabilized with posterior hardware as described above. Thecal sac is capacious. The neural foramina are patent. There is a rudimentary S1-S2 disc. Conus medullaris terminates at L1 and appears normal in morphology. There is hemangioma L2 vertebra. Otherwise rest the bone marrow signal is normal.. No evidence of fracture. Postsurgical changes are seen in posterior subcutaneous soft tissues posterior L5-S1 disc level. MR/MR lumbar spine wo con IMPRESSION: L5-S1 disc fusion with posterior hardware. Mild degenerative disc changes L5-S1 and L2-3 disc level with minimal disc bulge at L2-3 disc level. There is mild inferolateral recess of neural foramina at the L2-3 disc level lateral. No evidence of fracture or bone contusion. Electronically signed by: Nestor Enriquez MD 10/31/2024 08:08 AM EDT
--- OUTSIDE RECORDS SUMMARY | 2024-10-29 17:17 | XMS_ITS ---
Author Organization [facility] Address [address] [facility] [address] [place] [address] Care Team Providers Care Building Economist Name Role Phone Delfin Dow Primary Care Provider ROXIE Sheikh Unavailable [phone] Allergies Allergen (clinical drug ingredient) Drug/Non Drug [...] Active Lysine Active Calcium + D Active Riverside 3 1000 MG 2 capsule Orally onc [...] Problem Status W/U Status Risk Notes Problem 006073497 Type 2 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 (E11.49) Active confirmed Problem 29679825 Other polyneuropathy (G62.89) Active confirmed Vital Signs Temperature 97.0 degrees Fahrenheit 02/24/20 24 Blood pressure systolic 124 mm Hg 02/24/20 24 Blood pressure diastolic 58 mm Hg 024 Heart Rate 76 /min 02/24/2024 Respiratory Rate 20 /min 02/24/2024 Height 5ft 2.5in in 02/24/2024 Weight 163.7 lbs 02/24/2024 BMI 29.46 kg/m2 02/24/2024 Encounters Encounter Location Date Provider Diagnosis [facility] [address] [facility] [address] [place] [address] 02/24/2024 ROXIE MOSQUERA Type 2 diabetes mellitus [...] 1 Year, Reason: Progress Notes * Bri HERRINGdustinhDOB: 4 (58 yo F)Acc No.[id number]:02/24/2025 Consult note Patient:?Marisa HERRING Provider:?Roxie Mosquera DPM :1965???Age:58 Y???Sex:Female D ate:02/24/2024 Phone: Address:[address] [place] [id number] Pcp:Delfin Dow Subjective: * Chief Complaints: * ???Diabetic check * HPI: ???Constitutional:? This 58 y/o female presents to my office accompanied by her for a diabetic foot evaluation. She has never seen a pro shop attendant. She has an extensive history of lower [...] List reviewed and reconciled with the patientTaking Riverside 3 1000 MG Capsule 2 capsule Orally [...] left, protective sensation intact 10/10 with 5.07 [place] bilaterally, vibratory sensation with tuning fork [...] Year * Billing Information: * Visit Code:? 70035 Office Visit, New Pt., Level 3. * Procedure Codes:? * Sign off status: Completed true * Provider:Taj Mosquera DPM Date:? 02/24/2024 Generated for Lyndsay helm/Frank/Marielos on:?10/29/2024 05:17 PM EDT History and Physical Notes * HPI (History of Present Illness) Category Sub-Category Detail Notes Category Not es Constitutional This 58 y/o f sariah presents to my office accompanied by her for a diabetic foot evaluation. She has never seen a pro shop attendant. She has an extensive history of lower [...] left, protective sensation intact 10/10 with 5.07 [place] bilaterally, vibratory sensation with tuning fork [...]
--- OUTSIDE RECORDS SUMMARY | 2024-10-29 17:17 | XMS_ITS | Patient Health Record ---
Author Organization [facility] Address [address] [place] [address] Care Team Providers Care Therapist Speech Name Role Phone SHAWN FIELD, FILI Primary [...] Risk Notes Problem Cervical spondylosis without myelopathy (208124419) Spondylosis without myelopathy or radiculopathy, cervical region (M47.812) Active confirmed Problem Lumbosacral spondylosis without myelopathy (42761317) Spondylosis without myelopathy or radiculopathy, lumbar region (M47.816) Active confirmed Plan Of Treatment No Information Insurance Providers Payer Name Payer Address Payer Phone Subscriber Number Group Number Insured Name Patient Relationship to Insured Coverage Start Date Coverage End Date UMR by [facility] [address] [address] [place], [place] [id number] Shimon Jarrett Spouse - patient is the spouse of the insured Medicare B ID [address] [place] [phone] [id number] WESLEY EISENBERG Self - patient is the insured Medical (General) History Medical History History ICD Code TENDINITIS IRON DEFICEINCY ANEMIA MULTILEVEL DDD FIBROMYALGIA OSTEOARTHRITIS PERIPHERAL NEUROPATHY TYPE II DIABETES HYPOTHYROIDISM GASTRIC ULCER MODREATE MAJOR DEPRESSION GENERALIZED ANXIETY DISORDER SEASONAL ALLERGIES RECURRENT COLD SORES HYPERLIPIDEMIA HYPERTENSION OBESITY Surgical History Surgery Date(Month/Year)
--- OUTSIDE RECORDS SUMMARY | 2024-10-29 17:17 | XMS_ITS | Patient Health Record ---
Author Organization [facility] Address [address] [facility] [address] [place] [address] Care Team Providers Care Garment Parts Cutter Machine Name Role Phone Paloma Delfin Primary Care Provider LAURE Sheikh Unavailable [phone] Allergies Allergen (clinical drug ingredient) Drug/Non Drug [...] directed Vaginal Active Calcium + D Active Tuttle 3 1000 MG 2 capsule Orally onc e a day Active LORazepam 1 MG 1 tablet at bedtime as needed Orally Once a day Active Melatonin 10 MG as directed Orally Active oxyCODONE-Acetaminophen 5-32 5 MG 1 tablet as needed Orally every 6 hrs Active Problems Problem Type SNOMED Code ICD Code Onset Dates Problem Status W/U Status Risk Notes Problem 884970223 Type 2 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 (E11.49) Active confirmed Problem 89398338 Other polyneuropathy (G62.89) Active confirmed Vital Signs Heart Rate 76 /min 02/24/2024 Temperature 97.0 degrees Fahrenheit 02/24/2024 Respiratory Rate 20 /min 02/24/2024 Blood pressure diastolic 58 mm Hg 02/24/2024 Height 5ft 2.5in in 02/24/2024 Blood pressure systolic 124 mm Hg 02/24/2024 Weight 163.7 lbs 02/24/2024 BMI 29.46 kg/m2 02/24/2024 Encounters Encounter Location Date Provider Diagnosis [facility] [address] [facility] [address] [place] [address] 02/24/2024 LAURE PARKER Type 2 diabetes mellitus [...] Date Coverage End Date R [address] [address] [place] [address] [id number] Marisa Herring Self - patient is the insured Medicare of [place] [address] [place] [phone] [id number] Marisa Herring Self - patient is the insured Medical (General) History Medical History History ICD Code hypertension fibromyalgia gastric ulcer anxiety gastroesophageal reflux disease (GERD) hyperlipidemia hypothyroid iron deficiency anemia depression multilevel degenerative disc disease osteoarthritis peripheral neuropathy recurrent cold sores seasonal allergies type 2 diabetes mellitus Surgical History Surgery Date(Month/Year) fluoroscopic procedure NEC, cervical spi ne 05/2021 back surgery 2017 tonsillectomy 2003 DC ARTHRD ANT INTERBODY MIN DSC CRV BELO W C2 2018 DC ARTHRS KNEE DRLG OSTEOCHO ND DISSECANS INT FIXJ NEOS, RECURRENT WITH SEPSIS, LEFT 2008 DC NEUROPLASTY & TRANSPOS MEDIAN NRV CAR PAL TUNNEL, BILATERAL 2014 DC THORACOSCOPY W/THERA WEDG E RESEXN INITIAL UNILAT, LEFT- CHAY WEDGE RESECTION 05/19/2023 DC TOTAL ABDOMINAL HYSTERECT W/WO RMVL T UBE OVARY 1989 Hospitalization History Reason Date(Month/Year) Back Surgery by C-Diff
--- OUTSIDE RECORDS SUMMARY | 2024-10-29 17:17 | XMS_ITS | Clinical Summary ---
Author Organization [facility] Address [address] [place] [address] Care Team Providers Care Shearer Helper Name Role Phone Delfin Dow MD Primary Care Provider [phone] Allergies No known active allergies Medications Medication [...] age to complete this topic Care Teams Shearer Helper Relationship Specialty Start Date End Date Delfin Dow MD [address] [facility] [place] [address] PCP - General Internal Medicine 07/07/23
== END 2024-10-29 17:12 | disposition home or self-care (01) ==
LOC: HO.MRI 17:11
PROVIDERS: PCP Internal Medicine Hematology & Oncology; Visit Provider Physician Assistant
DX: M54.16 Radiculopathy, lumbar region (principal)
CPT/HCPCS: 72148

== ENCOUNTER → 2024-10-29 17:19 | Outpatient (BNV) | payer OTHER, MEDICARE, SELFPAY | PROVIDERS: PCP Internal Medicine Hematology & Oncology; Visit Provider Radiology Diagnostic Radiology | DX: M43.26 Fusion of spine, lumbar region (principal) | CPT/HCPCS: 72148 ==

== ENCOUNTER 2025-05-17 09:54 | Outpatient (REF) | payer OTHER, MEDICARE, SELFPAY ==
--- NOTE | ~2025-05-17 | MR_ITS ---
CLINICAL HISTORY: M54.2 - Cervicalgia MRI cervical spine without contrast Comparison: None Findings: C6-7 anterior fusion hardware noted. Metal artifact obscures these vertebral bodies. Otherwise no acute bony signal abnormality noted. Posterior bony alignment is normal. Mild C5-6 transverse osteophytosis. No significant canal stenosis noted. No other significant disc abnormality. No other area of spinal stenosis. Impression: No significant abnormality This document has been electronically signed by: Kevin Castillo MD on 05/17/2025 21:54:10
--- OUTSIDE RECORDS SUMMARY | 2025-05-17 12:02 | XMS_ITS | Encounter Summary ---
Author Organization [facility] Address [address] [place] [address] Care Team Providers Care Mechanic Helper Name Role Phone Delfin Dow MD Primary Care Provider [phone] Reason for Visit * Reason Onset Date Comments Medication Problem 04/20/2025 Encounter Details Date Type Department Care Team (Late st Contact Info) Description 04/20/2025 Telephone Internal Medicine - [facility] [address] [place] [address] Delfin Dow MD [address] [facility] [place] [address] Social History Tobacco Use Types Packs/Day Years Used Date Smoking Tobacco: Former Cigarettes 0.5 44.1 0 07/20/1976 - 08/20/2020 Smokeless Tobacco: Never Alcohol Use Standard Drinks/Week Comments Not Currently [...] Record ed Within the last 3 months, ho w many times did you visit the emergency [...] care for your loved ones. For example, child care attendant or elderly care for an older adult? [...] Date Recorded What is your living situation? Unrecognized valu e 10/06/2024 Comments No Sex and Gender Information Value Date Recorded Sex Assigned at Not on file Legal Sex Female 10:01 AM EST Gender Identity Not on file Sexual Orientation Not on file documented as of this encounter Progress Notes * Caro Aguero - 04/20/2025 11:41 AM EDT Medication Problem: What is the name of the medication patient is having a problem with?: levothyroxine- What is the problem?: Needs to states brand name with no subsitution Who is calling about the problem? : A pharmacist: Pharmacy: [facility] Pharmacist Name: [facility] Phone # [phone] Is this a NEW medication?: no How long has the patient been taking this medication? N/a Who prescribed this medication for the patient? Dr Dow Who is patients PCP?: Delfin Dow MD Payor: [facility] / Plan: UMR / Product Type: *No Product type* / documented in this encounter Plan of Treatment Upcoming Encounters Date Type Department Care Team (Late st Contact Info) Description 06/12/2025 4:00 PM EST Office Visit Internal Medicine - [address] [phone] Ashly Ellis, MARILEE [address] [place] [address] 06/28/2025 1:15 PM EST Office Visit Internal Medicine - [address] [phone] Nellie Guardado NP [address] [place] [address] 08/15/2025 1:30 PM EST Office Visit [facility] Oncology [address] [place] [address] Esperanza Buckley PA [address] [place] [address] documented as of this encounter Visit Diagnoses Not on filedocumented in this encounter Additional Health Concerns Assessment Noted Time PHQ-9 Depression Total Score: 0 10/07/19 25 12:31 PM EDT documented as of this encounter Care Teams Mechanic Helper Relationship Specialty Start Date End Date Delfin Dow MD [address] [place] [address] PCP - General Internal Medicine 06/20/21 documented as of this encounter
--- OUTSIDE RECORDS SUMMARY | 2025-05-17 12:02 | XMS_ITS | Encounter Summary ---
Author Organization [facility] Address [address] [place] [address] Care Team Providers Care Manager Adult Name Role Phone Delfin Dow MD Primary Care Provider [phone] Encounter Details Date Type Department Care Team (Late st Contact Info) Description 05/01/2025 Results Follow-Up Internal Medicine - [facility] [address] [place] [address] Leslie Masterson MA Social History Tobacco Use Types Packs/Day Years [...] for your loved ones. For example, child development specialist or elderly care for an older adult? [...] on file documented as of this encounter Plan of Treatment Upcoming Encounters Date Type Department Care Team (Late st Contact Info) Description 06/12/2025 4:00 PM EST Office Visit Internal Medicine - [address] [address] Ashly Ellis, MARILEE [address] [place] [address] 06/28/2025 1:15 PM EST Office Visit Internal Medicine - [address] [address] Nellie Guardado NP [address] [place] [address] 08/15/2025 1:30 PM EST Office Visit [facility] Hematology Oncology [address] [place] [phone] Esperanza Buckley PA [address] [place] [address] documented as of this encounter Visit Diagnoses Not on filedocumented in this encounter Additional Health Concerns Assessment Noted Time PHQ-9 Depression Total Score: 0 10/07/19 25 12:31 PM EDT documented as of this encounter Care Teams Manager Adult Relationship Specialty Start Date End Date Delfin Dow MD [address] [place] [address] PCP - General Internal Medicine 06/20/21 documented as of this encounter
--- OUTSIDE RECORDS SUMMARY | 2025-05-17 12:02 | XMS_ITS ---
Author Name [facility] Organization Unknown Care Team Organization Name Specialty Phone Email Start Date End Da te [facility]CO 03/08/2025 [facility] Nellie Guardado Primary Care 12/26/2022 03/07/2024 [facility] Delfin Dow Primary Care 07/28/20222023
--- OUTSIDE RECORDS SUMMARY | 2025-05-17 12:02 | XMS_ITS | Clinical Summary ---
Author Organization [facility] Address [address] [place] [address] Care Team Providers Care Closing Coordinator Name Role Phone Delfin Dow MD Primary Care Provider [phone] Allergies No known active allergies Medications Medication [...] EX Apply topically. 0 Active calcium carbonate (OS-SONAI) 1250 (500 Ca) MG tablet Take 1 [...] 87 02/17/2024 10:13 AM EDT Temperature 36.8 C (98.2 F) 02/17/2024 10:13 AM EDT Respiratory Rate 18 09/08/2023 2:12 PM EST [...] o f 2) 2014 Influenza Vaccine (#1) 2025 3, 06/05/2022 DTap / Tdap / Td [...] age to complete this topic Care Teams Closing Coordinator Relationship Specialty Start Date End Date Delfin Dow MD [address] [place] [address] PCP - General Internal Medicine 07/07/23
--- OUTSIDE RECORDS SUMMARY | 2025-05-17 12:02 | XMS_ITS | Patient Health Record ---
Author Organization [facility] Address [address] [place] [address] Care Team Providers Care Animal Park Code Enforcement Officer Name Role Phone SHAWN FIELD, FILI Primary [...] Date End Date Status Gemfibrozil 600 MG Tablet 1 tablet 30 mi nutes before morning and evening meals Orally Twice a day; Duration: 30 day(s) Active Sertraline HCl 100 MG Tablet 1 tablet Or ally Once a day; Duration: 30 day(s) Active Lysine Acetate Activ e Ezetimibe 10 MG Tablet 1 tablet Orally O nce a day; Duration: 30 day(s) Active Verapamil HCl ER 300 MG Caps ule Extended Release 24 Hour 1 capsule Orally Once a day; Duration: 30 day(s) Active Fluconazole 100 MG Tablet 1 tablet Orall y; Duration: 10 day(s) Active oxyCODONE-Acetaminophen 5-32 5 MG Tablet 1 tablet as needed Orally every 6 hrs Active Calcium Carbonate+Vitamin D Active Fexofenadine HCl 60 MG Tablet 1 tablet O rally Twice a day; Duration: 30 day(s) Active Diclofenac Sodium 1 % Gel as directed Externally Active Zinc 50 MG Tablet 1 tablet Orally Once a day; Duration: 30 day(s) Active Omeprazole 40 MG Capsule Delayed Release 1 capsule 30 minutes before morning meal Orally Once a day; Duration: 30 day(s) Active Triamcinolone & Emollient Active metFORMIN HCl 500 MG Tablet 1 tablet wit h a meal Orally Once a day; Duration: 30 day(s) BID Active Levothyroxine Sodium 125 MCG Tablet 1 tablet in the morning on an empty stomach Orally Once a day; Duration: 30 day(s) Active Cyclobenzaprine HCl 5 MG Tablet 1 tablet at bedtime as needed Orally Once a day; Duration: 30 day(s) Active hydroCHLOROthiazide 25 MG Tablet 1 tablet in the morning Orally Once a day; Duration: 30 day(s) Active LORazepam 1 MG Tablet 1 tablet at bedtim e as needed Orally Once a day Active Ramipril 5 MG Capsule 1 capsule Orally O nce a day; Duration: 30 day(s) Active Social History Tobacco Use: Social History Observation Description Date Details (start date - stop date) Former Smoker NA - NA Social History Tobacco Use: Social Info Question Answer Notes Tobacco Use/Smoking Are you a former smoker How long has it been since you last smoked? 1-5 years Problems Problem Type SNOMED Code ICD Code Onset Dates Problem Status W/U Status Risk Notes Problem Cervical spondylosis without myelopathy (797839812) Spondylosis without myelopathy or radiculopathy, cervical region (M47.812) Active confirmed Problem Lumbosacral spondylosis without myelopathy (63405403) Spondylosis without myelopathy or radiculopathy, lumbar region (M47.816) Active confirmed Plan Of Treatment No Information Insurance Providers Payer Name Payer Address Payer Phone Subscriber Number Group Number Insured Name Patient Relationship to Insured Coverage Start Date Coverage End Date [employer] by [facility] [address] [address] [place], [place] [id number] [phone] [id number] Shimon Jarrett Spouse - patient is the spouse of the insured [place] [address] [place] [phone] [id number] WESLEY EISENBERG Self - patient is the insured Medical (General) History Medical History History ICD Code TENDINITIS IRON DEFICEINCY ANEMIA MULTILEVEL DDD FIBROMYALGIA OSTEOARTHRITIS PERIPHERAL NEUROPATHY TYPE II DIABETES HYPOTHYROIDISM GASTRIC ULCER MODREATE MAJOR DEPRESSION GENERALIZED ANXIETY DISORDER SEASONAL ALLERGIES RECURRENT COLD SORES HYPERLIPIDEMIA HYPERTENSION OBESITY Surgical History Surgery Date(Month/Year)
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
--- OUTSIDE RECORDS SUMMARY | 2025-05-17 12:02 | XMS_ITS | Clinical Summary ---
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 Active LACTOBACILLUS ACIDOPHILUS ORAL Take by mouth daily. 023 Active diclofenac (VOLTAREN) 1 % topical gel APPLY 2 GRAMS TOPICALLY TWO TIMES A DAY NEEDED FOR PAIN Active estradioL (ESTRACE) 0.01 % (0.1 mg/gram) vaginal cream Place 1 g vaginally at bedtime. Active triamcinolone acetonide 0.05 % ointment Apply 1 Applicator topically daily. Apply to affected area daily. 023 Active gemfibroziL (LOPID) 600 mg tabletIndications :Mixed hyperlipidemia Take 1 tablet (600 mg total) by mouth 2 (two) times a day. 180 tablet 1 024 Active ramipriL (ALTACE) 5 mg capsuleIndication s:Essential hypertension TAKE TWO CAPSULES BY MOUTH EVERY MORNING AND 1 AT NOONTIME 270 capsule 1 025 Active hydroCHLOROthiazi de (HYDRODIURIL) 25 mg tabletIndications :Essential hypertension Take 1 tablet (25 mg total) by mouth 1 (one) time each day. 90 each 1 025 2024 Active verapamil ER (VERELAN PM) 300 mg 24 hr capsule TAKE ONE CAPSULE BY MOUTH EVERY DAY 90 capsule 1 025 Active levothyroxine (LevoxyL) 125 mcg tablet Take 1 tablet (125 mcg total) by mouth 1 (one) time each day before breakfast. 90 each 1 025 2024 Active ezetimibe (ZETIA) 10 mg tabletIndications :Mixed hyperlipidemia Take 1 tablet (10 mg total) by mouth 1 (one) time each day. 90 each 1 025 2025 Active tiZANidine (ZANAFLEX) 4 mg tablet TAKE 1 TABLET BY MOUTH EVERY 8 HOURS NEEDED FOR MUSCLE SPASMS 90 tablet 2 025 Active metFORMIN XR (GLUCOPHAGE-XR) 500 mg 24 hr tablet Take 2 tablets (1,000 mg total) by mouth 2 (two) times a day. Do not crush, chew, or split. 360 each 1 025 2025 Active valACYclovir (VALTREX) 1 gram tablet Take 1 tablet (1,000 mg total) by mouth 3 (three) times a day if needed (with outbreaks). 21 tablet 3 025 Active omeprazole (PriLOSEC) [address] capsule TAKE ONE CAPSULE BY MOUTH EVERY DAY 90 capsule 1 Active sertraline (ZOLOFT) 100 mg tablet TAKE ONE TABLET BY MOUTH EVERY DAY 90 tablet Active promethazine (PHENERGAN) 12.5 mg tabletIndications :RUQ pain Take 1 tablet (12.5 mg total) by mouth every 8 (eight) hours if needed for nausea or vomiting. 30 tablet 025 2025 Active oxyBUTYnin (DITROPAN) 5 mg tablet Take 1 tablet (5 mg total) by mouth 1 (one) time each day at the same time. Active oxyCODONE-acetami nophen (PERCOCET) 5-325 mg per tablet Take 1 tablet by mouth every 6 (six) hours if needed for severe pain. Max Daily Amount: 4 tablets 112 tablet Active LORazepam (ATIVAN) 1 mg tablet Take 1 Tablet by mouth at bedtime as needed for Anxiety for up to 28 days. 28 tablet 2024 Active melatonin 10 mg tablet Take by mouth. 2024 Discontinued(T herapy completed) calcium carb/vit D3/minerals (CALCIUM-VITAMIN D ORAL) Take by mouth. 2024 Discontinued(T herapy completed) oxyBUTYnin XL (DITROPAN-XL) 10 mg 24 hr tablet Take 1 tablet (10 mg total) by mouth 1 (one) time each day. 2024 Discontinued(T herapy completed) sertraline (ZOLOFT) 100 mg tablet TAKE ONE TABLET BY MOUTH EVERY DAY 90 tablet 1 025 2024 Discontinued folic acid (FOLVITE) 1 mg tablet Take 1 tablet (1 mg total) by mouth 1 (one) time each day. 90 each 1 025 2024 Discontinued(T herapy completed) promethazine (PHENERGAN) 12.5 mg tabletIndications :RUQ pain Take 1 tablet (12.5 mg total) by mouth every 8 (eight) hours if needed for nausea or vomiting. 30 tablet 025 2024 Discontinued(R eorder) oxyCODONE-acetami nophen (PERCOCET) 5-325 mg per tablet Take 1 tablet by mouth every 6 (six) hours if needed for severe pain. Max Daily Amount: 4 tablets 112 tablet 025 2024 Discontinued(R eorder) LORazepam (ATIVAN) 1 mg tablet Take 1 Tablet by mouth at bedtime as needed for Anxiety for up to 28 days. 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 Eisenberg is a 58 yr. female presenting for their 2 week follow-up status post navigational bronchoscopy with dye marking, da Jose left upper lobe wedge resection, mediastinal lymphadenectomy for benign hamartoma which was performed at [facility] on 05/19/[address]Laki Hernandez. Patient does inform me that she is [...] worsening pain Hypothyroid 09/04/2021 Moderate major depression (CMS/HCC V24, CMS/HCC V28) 09/04/2021 Multilevel degenerative disc disease 09/04/2021 Overview (04/27/2024): Multiple surgeries - all levels Dr. Samaniego Status post L5-S1 lumbar fusion follow-up [facility] spine center Osteoarthritis 09/04/2021 Overview (04/27/2024): Bilateral large joints Status post Durolane injections bilateral knees 06/17/2023 Peripheral neuropathy 09/04/2021 Overview (04/27/2024): ? DDD vs diabetes (hx CTS, bilateral feet) Recurrent cold sores 09/04/2021 Seasonal allergies 09/04/2021 Type II diabetes mellitus wi th neurological manifestations ([facility] V24, [facility] V28) 09/04/2021 Encounters Date Type Department Care Team Description 05/01/2025 Results Follow-Up Internal Medicine - [address] [phone] Leslie Masterson MA 04/28/2025 4:32 PM EDT - 04/28/2025 11:59 PM EDT Hospital Encounter [facility] CT Scan [address] [place] [address] Encounter for screening for malignant neoplasm of respiratory organs; Nicotine dependence, cigarettes, uncomplicated Discharge Disposition: Home or Self Care 04/28/2025 2:30 PM EDT Office Visit Internal Medicine - [address] [phone] Gauri Mendoza, Fibromyalgia (Primary Dx); Anxiety and depression; Encounter for long-term (current) use of high-risk medication 04/20/2025 Telephone Internal Medicine - [address] [phone] Fili Dow MD 04/11/2025 Telephone Lung Screening Program - [place] [address] [phone] Viola Benton [place] 02/15/2025 Telephone Internal Medicine - [address] [phone] Fili Dow MD from Last 3 Months Immunizations Immunization Administration Dates Next Due Influenza Quadravalent, MDCK [...] Site/Laterality Comments OTHER SURGICAL HISTORY 1989 PROCEDURE: TN TOTAL ABDOMINAL HYSTERECT W/WO RMVL TUBE OVARY; COMMENT: total except L ovary, Dr. Little BACK SURGERY 2016 PROCEDURE: HISTORICAL BACK SURGERY; COMMENT: Lumbar Dr. Bravo x 2, Dr Samaniego x1 OTHER SURGICAL HISTORY 2017 PROCEDURE: TN ARTHRD ANT INTERBODY MIN DSC CRV BELOW C2; COMMENT: Dr. Samaniego C6/7 OTHER SURGICAL HISTORY 05/2021 PROCEDURE: FLUOROSCOPIC PROCEDURE NEC; COMMENT: Dr. Samaniego, cervical spine TONSILLECTOMY 2003 PROCEDURE: HISTORICAL TONSILLECTOMY CARPAL TUNNEL RELEASE 2014 Bilateral PROCEDURE: TN NEUROPLASTY &/TRANSPOS MEDIAN NRV CARPAL TUNNE; COMMENT: Dr. Soto + trigger repair OTHER SURGICAL HISTORY 2008 Left PROCEDURE: TN ARTHRS KNEE DRLG OSTEOCHOND DISSECANS INT FIXJ; COMMENT: NEOS, recurrent, with sepsis OTHER SURGICAL HISTORY 05/19/2023 Left PROCEDURE: TN THORACOSCOPY W/THERA WEDGE RESEXN INITIAL UNILAT; COMMENT: [...] care for your loved ones. For example, childcare attendant or elderly care for an older [...] Sign Reading Time Taken Comments Blood Pressure 141/70 04/28/2025 2:29 PM EDT Pulse 87 04/28/2025 2:29 PM EDT Temperature 37.2 C (98.9 F) 08/18/2024 1:08 PM EST Respiratory Rate - - Oxygen Saturation 99% 08/18/2024 1:08 PM EST Inhaled Oxygen Concentration - - Weight 77.7 kg (171 lb 3.2 oz) 04/28/2025 2:29 P M EDT Height 157.5 cm (5' 2 ) 01/09/2025 9:33 AM EDT Body Mass Index 31.31 01/09/2025 9:33 AM EDT Plan of Treatment Upcoming Encounters Date Type Department Care Team (Late st Contact Info) Description 06/12/2025 4:00 PM EST Office Visit Internal Medicine - [address] [phone] Ashly Ellis, MARILEE [address] [place] [phone] 06/28/2025 1:15 PM EST Office Visit Internal Medicine - [address] [phone] Nellie Guardado NP [address] [place] [phone] 08/15/2025 1:30 PM EST Office Visit [facility] Hematology Oncology [address] [place] [phone] Esperanza Bcukley PA [address] [place] [address] Health Maintenance Due Date Last Done Comments Cervical Cancer Screening: Pap Smear 1985 HIV Screening 06/29/2022 Medicare Annual Wellness Visit 06/29/2022 Diabetes: Annual Foot Exam 02/23/2025 02/24/2024 COVID-19 Vaccine ( season) 2025 08/05/2022, 07/23/2021, 11/09/2020, Additional history exists Influenza Vaccine (#1) 2025 , 06/08/2023, 06/05/2022, Additional history exists Diabetes: Blood Sugar Control Test (HGBA1C) 07/11/2025 01/09/2025, 10/06/2024, 03/16/2024, Additional history exists Diabetes: Annual Urine Albumin-Creatinine Ratio (uACR) 10/06/2025 10/06/2024, 06/08/2023 Diabetes: Annual Retina Eye Exam 10/06/2025 10/06/2024, 06/18/2023 Social Influencers of Health Screening 10/06/2025 10/06/2024 Diabetes: Annual GFR (Glomerular Filtration Rate) 01/09/2026 01/09/2025, 10/06/2024, 03/16/2024, Additional history exists Hypertension/CHF/CAD Annual BMP Blood Test 01/09/2026 01/09/2025, 10/06/2024, 03/16/2024, Additional history exists Breast Cancer Screening 01/14/2026 01/15/20 24, 01/15/2024, 12/03/2022, Additional history exists Lung Cancer Screening (Low Dose CT) 04/28/2026 04/28/2025, 04/27/2024, 04/27/2024 DTaP,Tdap,and Td Vaccines (2 - Td or Tdap) 09/17/2026 09/17/2016 Cholesterol Screening (Lipid Panel) 01/09/2030 01/09/2025, 12/15/2023, 12/15/2023, Additional history exists Colorectal Cancer Screening: Colonoscopy 05/15/2033 05/15/2023 RSV Immunization Adult Patients (1 - 1-dose 75+ series) 2039 Hepatitis C Screening Completed 06/05/2022 Pneumococcal Vaccine: 50+ Years Completed 02/01/2024, 09/16/2021 Depression Screening Completed 10/06/2024, 06/08/20 HIB Vaccines Aged Out No longer eligi [...] Procedure Name Priority Date/Time Associated Diagnosis Comments CT LUNG SCREENING Routine 04/28/2025 5:0 9 PM EDT Encounter for screening for malignant neoplasm of respiratory organs Nicotine dependence, cigarettes, uncomplicated OPIATES CONFIRMATION, URINE Routine 04/28/2025 3:01 PM EDT Encounter for long-term (current) use of high-risk medication DRUG ABUSE SCREEN EXPANDED WITH REFLEX CONFIRMATION, URINE Routine 04/28/2025 3:01 PM EDT Encounter for long-term (current) use of high-risk medication COMPREHENSIVE METABOLIC PANEL Routine 01/09/2025 10:14 AM EDT RUQ pain HEMOGLOBIN A1C Routine 01/09/2025 10:14 AM EDT Type II diabetes mellitus with neurological manifestations (CMS/HCC V24, CMS/HCC V28) LIPID PANEL WITH REFLEX TO DIRECT LDL Routine 01/09/2025 10:14 AM EDT Mixed hyperlipidemia MICROALBUMIN CREATININE URINE RATIO Routine 10/06/2024 1:59 PM EDT Type II diabetes mellitus with neurological manifestations (CMS/HCC V24, CMS/HCC V28) DIABETES FOOT EXAM Routine 02/24/2024 ЮЛИЯ SCREENING DIGITAL Routine 01/15/2024 8:02 AM EDT Encounter for screening mammogram for malignant neoplasm of breast DIABETES EYE EXAM Routine 06/18/2023 DEPRESSION SCREENING Routine 06/08/2023 COLONOSCOPY Routine 05/15/2023 HEPATITIS C SCREENING Routine 06/05/2022 from Last 3 Months or Most Recently Relevant to Health Maintenance Results * CT Lung Screening (04/28/2025 5:09 PM EDT) Anatomical Region Laterality Modality Chest Computed Tomogra phy 05/08/2025 10:2 7 AM EDT Impressions 05/08/2025 10:52 AM EDT Lung RADS 1. No suspicious pulmonary nodule. Guidelines recommend repeat low-dose screening CT in 12 months. -------- FINAL REPORT -------- Dictated By: Vaughn Smith Dictated Date: 05/08/2025 10:27 ET Assigned Physician: Vaughn Smith Reviewed and Electronically Signed By: Vaughn Smith Signed Date: 05/08/2025 10:52 ET Workstation ID: [id number] Transcribed By: Self Edit Transcribed Date: 05/08/2025 10:27 ET Narrative 05/08/2025 10:52 AM EDT PROCEDURE: Low-dose CT of the chest without intravenous contrast. TECHNIQUE: Low-dose CT of the chest without intravenous contrast administration. Coronal and sagittal reformats and MIP reconstructions were created. Dose length product: 164 mGy-cm. HISTORY: Lung cancer screening, >=20 pk yr smoking history in last 15 yrs (Age 50-80y) COMPARISON: 04/27/2024. FINDINGS: Lungs/pleura: The central airways are clear and normal in caliber. Left upper lobe wedge resection with stable irregular adjacent bandlike opacity consistent with atelectasis and/or scarring. No suspicious pulmonary nodule or mass. No pleural effusion or pneumothorax. Mediastinum/margo: Small thyroid gland. No mediastinal mass or lymphadenopathy. No appreciable hilar lymphadenopathy on limited noncontrast evaluation. Vasculature: Normal caliber pulmonary arteries. Mild atherosclerotic calcifications of the aorta and great vessels. Cardiac: Normal heart size. Mild coronary artery calcification. Chest wall: No axillary or supraclavicular lymphadenopathy. Limited abdomen: Mild hepatic steatosis, with sparing along the gallbladder fossa. Bones: Partially visible lower cervical ACDF hardware. Mild S-shaped thoracolumbar scoliosis. Multilevel degenerative changes of the spine. Procedure Note Vaughn Smith MD - 05/08/2025 PROCEDURE: Low-dose CT of the chest without intravenous contrast. TECHNIQUE: Low-dose CT of the chest without intravenous contrastadministration. Coronal and sagittal reformats and MIP reconstructionswere created. Dose length product: 164 mGy-cm. HISTORY: Lung cancer screening, >=20 pk yr smoking history in last 15 yrs(Age 50-80y) COMPARISON: 04/27/2024. FINDINGS: Lungs/pleura: The central airways are clear and normal in caliber. Leftupper lobe wedge resection with stable irregular adjacent bandlike opacityconsistent with atelectasis and/or scarring. No suspicious pulmonarynodule or mass. No pleural effusion or pneumothorax. Mediastinum/margo: Small thyroid gland. No mediastinal mass orlymphadenopathy. No appreciable hilar lymphadenopathy on limitednoncontrast evaluation. Vasculature: Normal caliber pulmonary arteries. Mild atheroscleroticcalcifications of the aorta and great vessels. Cardiac: Normal heart size. Mild coronary artery calcification. Chest wall: No axillary or supraclavicular lymphadenopathy. Limited abdomen: Mild hepatic steatosis, with sparing along thegallbladder fossa. Bones: Partially visible lower cervical ACDF hardware. Mild S- shapedthoracolumbar scoliosis. Multilevel degenerative changes of the spine. IMPRESSION: Lung RADS 1. No suspicious pulmonary nodule. Guidelines recommend repeatlow-dose screening CT in 12 months. -------- FINAL REPORT -------- Dictated By: Vaughn Smith Dictated Date: 05/08/2025 10:27 ET Assigned Physician: Vaughn Smith Reviewed and Electronically Signed By: Vaughn Smith Signed Date: 05/08/2025 10:52 ET Workstation ID: [id number] Transcribed By: Self Edit Transcribed Date: 05/08/2025 10:27 ET us Pradeep Hernandez MD IM CT PROCEDURES Final Result * (ABNORMAL) Drug abuse screen expanded with reflex confirmation, urine (04/28/2025 3:01 PM EDT) Amphetamine Screen, Ur Negative Negative LAB CHEMISTRY METHOD 7:46 PM EDT [facility] Comment:Certain OTC medicati ons containing ephedrine, phenylephrine, pseudoephedrine and phenylpropanolamine can cause false positive results. Barbiturate Screen, Ur Negative Negative LAB CHEMISTRY METHOD 5 7:46 PM EDT [facility] Benzodiazepine Screen, Ur Negative Negative LAB CHEMISTRY METHOD 7:46 PM EDT [facility] Cocaine Screen, Ur Negative Negative LAB CHEMISTRY METHOD 7:46 PM EDT [facility] Opiate Screen, Ur Negative Negative LAB CHEMISTRY METHOD 7:46 PM EDT [facility] Cannabinoid (THC) Screen, Ur Negative Negative LAB CHEMISTRY METHOD 7:46 PM EDT [facility] Comment:Specimens from patie nts taking pantoprazole sodium (Protonix) have been shown to produce false positive results. Fentanyl, Ur Negative Negative LAB CHEMISTRY METHOD 7:46 PM EDT [facility] Oxycodone Screen, Ur Positive(A ) Negative LAB CHEMISTRY METHOD 7:46 PM [facility] Urine Urine specimen obtained by clean catch procedure / Unknown Non-blood Collection / Unknown 04/28/2025 3:01 PM EDT 04/28/2025 3:01 PM EDT Narrative [facility] - 04/28/2025 7:46 PM EDT Assay cutoffs: Amphetamines 1000 ng/mL Barbiturates 200 ng/mL Benzodiazepines 200 ng/mL Cocaine 300 ng/mL Fentanyl 1 ng/mL Opiates 300 ng/mL Oxycodone 100 ng/mL THC 50 ng/mL Semi-quantitative assay for screening purposes only. Unconfirmed screening result should not be used for non-medical purposes. *POSITIVE RESULTS ARE AUTOMATICALLY SENT FOR ALTERNATE METHOD CONFIRMATION* Gauri Mendoza DO LAB URINE ORDERABLES Final Res ult [facility] [address] [place] [address], * (ABNORMAL) Opiates confirmation, urine (04/28/2025 3:01 PM EDT) Morphine Confirm, Urine Negative Negative ng/mL 05/01/2025 11:05 PM EDT [facility] Codeine Confirm, Urine Negative Negative ng/mL 05/01/2025 11:05 PM EDT [facility] Hydrocodone Confirm, Urine Negative Negative ng/mL 05/01/2025 11:05 PM EDT [facility] Hydromorphone Confirm, Urine Negative Negative ng/mL 05/01/2025 11:05 PM EDT [facility] Oxycodone Confirm, Urine 142(H) Negative ng/mL 05/01/2025 11:05 PM EDT [facility] Oxymorphone Confirm, Urine 657(H) Negative ng/mL 05/01/2025 11:05 PM EDT [facility] Creatinine 48 20 - 250 mg/dL 05/01/2025 11:05 PM EDT [facility] Adulterants Negative 05/01/2025 11:05 PM EDT [facility] Comment: Confirmation (LC/MS/MS) Decision Limits Morphine 25 ng/mL Codeine 25 ng/mL Hydrocodone 25 ng/mL Hydromorphone 25 ng/mL Oxycodone 25 ng/mL Oxymorphone 25 ng/mL Adulterant Decision Limit: General Oxidants 200 ug/mL The adulterant assay tests for General Oxidants, including Chromates and Nitrites. Adulterants are substances either ingested or added directly to a urine specimen to prevent the detection of drug use. If applicable, any drug confirmation testing reported here was developed and the performance characteristics determined by [facility]. This confirmation testing has not been cleared or approved by the FDA. The laboratory is regulated under CLIA as qualified to perform high-complexity testing. This test is used for patient testing purposes. It should not be regarded as investigational or for research. Test performed at [facility], [address], [place] [address] Siena Ascencio MD, PhD - Senior Editor Urine Urine specimen obtained by clean catch procedure / Unknown Non-blood Collection / Unknown 04/28/2025 3:01 PM EDT 04/28/2025 7:46 PM EDT us Gauri Mendoza DO LAB URINE ORDERABLES Final Res ult [facility] [address] [place] [address] * Lipid panel with reflex to direct LDL (01/09/2025 10:14 AM EDT) Cholesterol 157 0 - 200 mg/dL LAB CHEMISTRY METHOD 01/09/2025 4:13 PM EDT [facility] Triglycerides 103 0 - 150 mg/dL LAB CHEMISTRY METHOD 01/09/2025 4:13 PM EDT [facility] HDL 47 >=40 mg/dL LAB CHEMISTRY METHOD 01/09/2025 4:13 PM EDT [facility] LDL Calculated 89 0 - 100 mg/dL LAB CHEMISTRY METHOD 01/09/2025 4:13 PM EDT [facility] VLDL Cholesterol Sonia 20.6 mg/dL LAB CHEMISTRY METHOD 01/09/2025 4:13 PM EDT [facility] Non HDL Chol. (LDL+VLDL) 110 <145 mg/dL LAB CHEMISTRY METHOD 01/09/2025 4:13 PM EDT [facility] Chol/HDL Ratio 3.3 0.0 - 4.4 LAB CHEMISTRY METHOD 01/09/2025 4:13 PM EDT [facility] Blood Venous blood specimen / Unknown Venipuncture / Unknown 01/09/2025 10:14 AM EDT 01/09/2025 10:14 AM EDT us Nellie Guardado MACHINE [employer] LAB BLOOD ORDERABLES Final Resul t [facility] [address] [place] [address], [place] [phone] * (ABNORMAL) Hemoglobin A1c (01/09/2025 10:14 AM EDT) Pathologist [facility] Hemoglobin A1C 6.8(H) <6.5 % LAB CHEMISTRY METHOD 01/09/2025 2:36 PM EDT [facility] Mean Bld Glu Estim. 148 mg/dL LAB CHEMISTRY METHOD 01/09/2025 2:36 PM EDT [facility] Blood Venous blood specimen / Unknown Venipuncture / Unknown 01/09/2025 10:14 AM EDT 01/09/2025 10:14 AM EDT Nellie Guardado NP LAB BLOOD ORDERABLES Final Resul t [facility] [address] [place] [address], [place] [phone] * (ABNORMAL) Comprehensive metabolic panel (01/09/2025 10:14 AM EDT) [facility] Sodium 135 133 - 145 mmol/L LAB CHEMISTRY METHOD 01/09/2025 4:13 PM [facility] Potassium 4.6 3.5 - 5.5 mmol/L LAB CHEMISTRY METHOD 01/09/2025 4:13 PM [facility] Chloride 102 96 - 110 mmol/L LAB CHEMISTRY METHOD 01/09/2025 4:13 PM [facility] CO2 24 21 - 32 mmol/L LAB CHEMISTRY METHOD 01/09/2025 4:13 PM [facility] Anion Gap 9 3 - 11 LAB CHEMISTRY METHOD 01/09/2025 4:13 PM [facility] Glucose 124(H) 70 - 100 mg/dL LAB CHEMISTRY METHOD 01/09/2025 4:13 PM [facility] BUN 16 5 - 25 mg/dL LAB CHEMISTRY METHOD 01/09/2025 4:13 PM [facility] Creatinine 0.90 0.50 - 1.10 mg/dL LAB CHEMISTRY METHOD 01/09/2025 4:13 PM [facility] eGFR 73 >=60 mL/min/1. 73m2 LAB CHEMISTRY METHOD 01/09/2025 4:13 PM [facility] Comment:Calculation based on the Chronic Kidney Disease Epidemiology Collaboration (CKD-EPI) equation refit without adjustment for race. BUN/Creatinine Ratio 17.8 LAB CHEMISTRY METHOD 01/09/2025 4:13 PM [facility] Calcium 9.5 8.5 - 10.5 mg/dL LAB CHEMISTRY METHOD 01/09/2025 4:13 PM [facility] AST (SGOT) 14 10 - 42 unit/L LAB CHEMISTRY METHOD 01/09/2025 4:13 PM [facility] ALT (SGPT) 19 10 - 60 unit/L LAB CHEMISTRY METHOD 01/09/2025 4:13 PM [facility] Alkaline Phosphatase 84 42 - 121 unit/L LAB CHEMISTRY METHOD 01/09/2025 4:13 PM [facility] Total Protein 7.6 6.0 - 8.0 g/dL LAB CHEMISTRY METHOD 01/09/2025 4:13 PM [facility] Albumin 4.0 3.2 - 5.0 g/dL LAB CHEMISTRY METHOD 01/09/2025 4:13 PM [facility] Total Bilirubin 0.3 0.0 - 1.4 mg/dL LAB CHEMISTRY METHOD 01/09/2025 4:13 PM [facility] Blood Venous blood specimen / Unknown Venipuncture / Unknown 01/09/2025 10:14 AM EDT 01/09/2025 10:14 AM EDT us Nellie Guardado NP LAB BLOOD ORDERABLES Final Resul t [facility] [address] [place] [address], [place] [phone] * Microalbumin creatinine urine ratio (10/06/2024 1:59 PM EDT) Creatinine, Urine 47.0 mg/dL LAB CHEMISTRY METHOD 10/06/2024 4:53 PM EDT [facility] Microalb, Ur 5.5 0.0 - 29.0 mg/L LAB CHEMISTRY METHOD 10/06/2024 4:53 PM EDT [facility] Microalb/Creat Ratio 12 <30 mg/g creat LAB CHEMISTRY METHOD 10/06/2024 4:53 PM EDT [facility] Urine Urine specimen obtained by clean catch procedure / Unknown Non-blood Collection / Unknown 10/06/2024 1:59 PM EDT 10/06/2024 1:59 PM EDT Nellie Guardado MACHINE [employer] LAB URINE ORDERABLES Final Resul t Performing Organization Address City/[facility]/ZIP Co de Phone Number [facility] [address] [place] [address], [place] [phone] * Hm Diabetes Foot Exam (02/24/2024) Pathologist [facility] Diabetes: Annual Foot Exam abstracted us Historical Provider HEALTH MAINTENANCE Final Result * ЮЛИЯ SCREENING DIGITAL (01/15/2024 8:02 AM EDT) Anatomical Region Laterality Modality Mammography 01/15/2024 7:00 AM EDT Narrative 01/15/2024 8:02 AM EDT [facility] Diagnostic Imaging Department [address], [place] [id number] Patient: MARISA EISENBERG Allen /Age/Sex: 1965 - 58 - F Unit#: [id number] Location/Status: SPDIMAM/REG CLI Mnemonic[facility] Ordering Physician: FILI DOW MD [facility] Screening Digital - 01/15/24 - 721 Report Status:Signed EXAM: [facility] Screening Digital EXAM DATE AND TIME: 01/15/2024 7:24 AM HISTORY: Screening. Sister had breast carcinoma at age 59. COMPARISON: 12/03/22, 11/30/21, 08/16/20 TECHNIQUE: Bilateral digital breast tomosynthesis was performed in the CC and MLO projections. Computer aided detection with [employer] 3D 3.1 was employed. TISSUE DENSITY: b. There are scattered areas of fibroglandular density. FINDINGS: No suspicious masses, grouped microcalcifications, or areas of architectural distortion are seen. Scattered microcalcifications are again seen. The skin and vascularity are unremarkable. IMPRESSION: Stable mammographic appearance of the breasts. No evidence of malignancy is seen. A negative mammogram in the presence of a clinically suspicious palpable abnormality does not preclude the possibility of malignancy or alter the indications for biopsy. BI-RADS: Category 2: Benign RECOMMENDATION(S): 1: Routine screening mammogram BILATERAL in 1 year. Dictating Physician: TERESA CHRISTIE MD Electronically Signed by: TERESA CHRISTIE MD Dic Date/Time: 01/15/24800 Sign date/Time: 01/15/24801 Procedure Note Teresa Crhistie MD - 05/04/2024 [facility] Diagnostic Imaging Department [address] [place], [place] [id number] Patient: MARISA EISENBERG /Age/Sex: 1965 - 58 - F Unit#: [id number] Location/Status: SPDIMAM/REG CLI Mnemonic/[facility] Ordering Physician: FILI DOW MD [facility] Screening Digital - 01/15/24 - 721 Report Status:Signed EXAM: [facility] Screening Digital EXAM DATE AND TIME: 01/15/2024 7:24 AM HISTORY: Screening. Sister had breast carcinoma at age 59. COMPARISON: 12/03/22, 11/30/21, 08/16/20 TECHNIQUE: Bilateral digital breast tomosynthesis was performed in the CCand MLO projections. Computer aided detection with [employer] AI 3D 3.1was employed. TISSUE DENSITY: b. There [...] Signed by: TERESA CHRISTIE MD Dic Date/Time: 01/15/24800 Sign date/Time: 01/15/24 0802 Fili Dow MD IMG BI PROCEDURES Final Result * Diabetes Eye Exam (06/18/2023) Pathologist [facility] Diabetes: Annual Retina Eye Exam abstracted Historical Provider HEALTH MAINTENANCE Final Result * Depression Screening (06/08/2023) Pathologist [facility] Depression Screening abstracted Historical Provider HEALTH MAINTENANCE Final Result * Colonoscopy (05/15/2023) Pathologist [facility] Colonoscopy no interpreta tion,abstr acted Anatomical Region Laterality Modality Other Historical Provider HEALTH MAINTENANCE Final Result * Hepatitis C Screening (06/05/2022) Pathologist [facility] Hepatitis C Screening abstracted Historical Provider HEALTH MAINTENANCE Final Result from Last 3 Months or Most Recently Relevant to Health Maintenance Insurance MEDICARE 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
== END 2025-05-17 09:55 | disposition home or self-care (01) ==
LOC: HO.MRI 09:54
PROVIDERS: Visit Provider Physician Assistant
DX: M54.2 Cervicalgia (principal)
CPT/HCPCS: 72141

== ENCOUNTER → 2025-05-17 10:06 | Outpatient (BNV) | payer OTHER, MEDICARE, SELFPAY | PROVIDERS: Visit Provider Radiology Diagnostic Radiology | DX: M54.2 Cervicalgia (principal) | CPT/HCPCS: 72141 ==